=== PATIENT | female | born 1970 | race Caucasian/White ===

== ENCOUNTER → 2017-02-17 | Outpatient (CLI) | payer OTHER ==
[2017-02-17 13:26] LABS: CH 29.9; CHCM 32.5; HCT 51.7 % (34.0-46.0); HDW 2.35; MCH 30.4 pg (25.0-35.0); MCHC 32.9 g/dL (31.0-37.0); MCV 92.2 fL (80.0-100.0); Mean Platelet Volume 8.2; RBC 5.61 m/uL (3.80-5.40); WBC 8.4 k/uL (3.8-10.6)
[2017-02-17 13:31] LABS: ALT 81 U/L (9-52); AST 69 U/L (14-36); Alkaline Phosphatase 106 U/L (38-126); Anion Gap 10 mmol/L; Blood Urea Nitrogen 10 mg/dL (7-17); Calcium 9.4 mg/dL (8.4-10.2); Carbon Dioxide 26 mmol/L (22-30); Chloride 101 mmol/L (98-107); Cholesterol 218 mg/dL (<200); Glucose 231 mg/dL (74-99); HDL Cholesterol 56 mg/dL (40-60); Non-African American GFR(MDRD) >60 (>60 ml/min/1.73 sqM); Potassium 4.1 mmol/L (3.5-5.1); Sodium 137 mmol/L (137-145); Total Protein 6.9 g/dL (6.3-8.2); Triglycerides 294 mg/dL (<150)
[2017-02-18 00:48] LABS: Hemoglobin A1C 9.8 % (4.2-6.1)
== END | disposition home or self-care (01) ==
LOC: LABWHC1 12:50
PROVIDERS: ATTEND Internal Medicine
DX: E78.2 Mixed hyperlipidemia (principal); M19.90 Unspecified osteoarthritis, unspecified site; E11.9 Type 2 diabetes mellitus without complications
CPT/HCPCS: 36415; 80053; 80061; 82043; 83036; 85027

== ENCOUNTER → 2017-03-18 | Outpatient (CLI) | payer OTHER ==
[2017-03-18 11:56] LABS: Hemoglobin A1C 8.8 % (4.2-6.1)
== END | disposition home or self-care (01) ==
LOC: LABWHC1 08:45
PROVIDERS: ATTEND Internal Medicine
DX: E11.9 Type 2 diabetes mellitus without complications (principal)
CPT/HCPCS: 36415; 82947; 83036

== ENCOUNTER → 2017-05-26 | Outpatient (CLI) | payer OTHER ==
[2017-05-26 23:53] LABS: Hemoglobin A1C 6.5 % (4.2-6.1)
== END | disposition home or self-care (01) ==
LOC: LABWHC1 16:09
PROVIDERS: ATTEND Internal Medicine
DX: E11.9 Type 2 diabetes mellitus without complications (principal)
CPT/HCPCS: 36415; 82947; 83036

== ENCOUNTER → 2017-07-31 | Outpatient (CLI) | payer OTHER | END | disposition home or self-care (01) | LOC: RADMRIMAIN 08:37 | PROVIDERS: ATTEND Physician Assistant | DX: Z53.9 Procedure and treatment not carried out, unspecified reason (principal) ==

== ENCOUNTER → 2017-12-26 | Outpatient (CLI) | payer OTHER ==
[2017-12-26 10:42] LABS: Anion Gap 12 mmol/L; Blood Urea Nitrogen 13 mg/dL (7-17); Calcium 9.7 mg/dL (8.4-10.2); Carbon Dioxide 26 mmol/L (22-30); Chloride 100 mmol/L (98-107); Cholesterol 197 mg/dL (<200); Glucose 217 mg/dL (74-99); HDL Cholesterol 56 mg/dL (40-60); LDL Cholesterol,Calculated 90 mg/dL (0-99); Potassium 4.5 mmol/L (3.5-5.1); Sodium 138 mmol/L (137-145); Triglycerides 256 mg/dL (<150)
[2017-12-26 21:18] LABS: Hemoglobin A1C 8.4 % (4.0-6.0)
== END | disposition home or self-care (01) ==
LOC: LABWHC1 10:10
PROVIDERS: ATTEND Internal Medicine
DX: I11.9 Hypertensive heart disease without heart failure (principal); E11.9 Type 2 diabetes mellitus without complications; E78.2 Mixed hyperlipidemia
CPT/HCPCS: 36415; 80048; 80061; 83036

== ENCOUNTER → 2018-07-02 | Outpatient (CLI) | payer OTHER ==
--- NOTE | 2018-07-06 10:05 | MM ---
Reason for exam: screening (asymptomatic). Last mammogram was performed 2 years ago. Physical Findings: A clinical breast exam by your physician is recommended on an annual basis and results should be correlated with mammographic findings. MG Screening Mammo w CAD Bilateral CC and MLO view(s) were taken. Prior study comparison: July 16, 2016, bilateral MG screening mammo w CAD. July 12, 2014, bilateral MG screening mammo w CAD. There are scattered fibroglandular densities. There is no discrete abnormality. No significant changes when compared with prior studies. ASSESSMENT: Negative, BI-RAD 1 RECOMMENDATION: Routine screening mammogram of both breasts in 1 year.
== END | disposition home or self-care (01) ==
LOC: RADMAMWWP 13:14
PROVIDERS: ATTEND Internal Medicine
DX: Z12.31 Encounter for screening mammogram for malignant neoplasm of breast (principal)
CPT/HCPCS: 77067

== ENCOUNTER → 2018-08-04 | Outpatient (CLI) | payer OTHER ==
[2018-08-04 09:54] LABS: HCT 47.4 % (34.0-46.0); HGB 15.5 gm/dL (11.4-16.0); MCH 30.4 pg (25.0-35.0); MCHC 32.7 g/dL (31.0-37.0); MCV 93.1 fL (80.0-100.0); Platelet Count 261 k/uL (150-450); RBC 5.09 m/uL (3.80-5.40); RDW 12.9 % (11.5-15.5); WBC 9.9 k/uL (3.8-10.6)
[2018-08-04 10:14] LABS: ALT 49 U/L (9-52); AST 43 U/L (14-36); Albumin 3.9 g/dL (3.5-5.0); Alkaline Phosphatase 72 U/L (38-126); Anion Gap 10 mmol/L; Blood Urea Nitrogen 11 mg/dL (7-17); Calcium 9.5 mg/dL (8.4-10.2); Carbon Dioxide 28 mmol/L (22-30); Chloride 102 mmol/L (98-107); Cholesterol 175 mg/dL (<200); Glucose 146 mg/dL (74-99); HDL Cholesterol 47 mg/dL (40-60); LDL Cholesterol,Calculated 87 mg/dL (0-99); Potassium 4.7 mmol/L (3.5-5.1); Sodium 140 mmol/L (137-145); Total Bilirubin 0.5 mg/dL (0.2-1.3); Triglycerides 206 mg/dL (<150)
[2018-08-04 10:24] LABS: T4, Free (Free Thyroxine) 1.24 ng/dL (0.78-2.19)
[2018-08-04 19:11] LABS: Hemoglobin A1C 6.1 % (4.0-6.0)
== END ==
LOC: LABWHC1 08:45
PROVIDERS: ATTEND Internal Medicine
DX: Z00.00 Encounter for general adult medical examination without abnormal findings (principal); E11.9 Type 2 diabetes mellitus without complications; I11.9 Hypertensive heart disease without heart failure; E66.1 Drug-induced obesity; K21.0 Gastro-esophageal reflux disease with esophagitis
CPT/HCPCS: 36415; 80053; 80061; 82043; 82570; 83036; 84439; 84443; 85027

== ENCOUNTER 2018-08-11 11:05 | Inpatient (IN) | payer OTHER ==
[2018-08-11] MEDS ORDERED: ACETAMINOPHEN TAB 500 MG TAB PO STA (11:16)
[2018-08-11] MEDS ORDERED: IPRATROPIUM-ALBUTEROL 3 ML NEB INHALATION STA (11:16)
--- NOTE | 2018-08-11 11:18 | ED ---
General Adult HPI - General Chief complaint: Shortness of Breath Stated complaint: SOB Time Seen by Provider: 08/11/18 11:13 Source: patient, RN notes reviewed Mode of arrival: wheelchair Limitations: no limitations - History of Present Illness Initial comments: Patient is a pleasant 47-year-old female presenting to the emergency Department with complaints of difficulty breathing. Onset of symptoms was several days ago. Patient does have cough with occasional yellow sputum. Patient has had subjective fevers. Patient has not been smoking the past couple of days secondary to increased dyspnea. Dyspnea also increases with mild exertion. Patient does have a history of similar symptoms previously associated with COPD. No leg pain or leg swelling. No chest pain. - Related Data Home Medications Medication Instructions Recorded Confirmed FLUoxetine HCL [PROzac] 20 mg PO DAILY 03/08/15 08/11/18 Atorvastatin [Lipitor] 20 mg PO HS 08/11/18 08/11/18 Diclofenac Sodium [Voltaren] 75 mg PO BID 08/11/18 08/11/18 metFORMIN HCL 1,000 mg PO BID 08/11/18 08/11/18 sitaGLIPtin [Januvia] 100 mg PO DAILY 08/11/18 08/11/18 Allergies Allergy/AdvReac Type Severity Reaction Status Date / Time erythromycin base Allergy Severe Rash/Hives/ Verified 08/11/18 12:00 [Erythromycin Base] SOB amoxicillin [Amoxicillin] Allergy Rash/Hives Verified 08/11/18 12:00 bupropion HCl Allergy Swelling Verified 08/11/18 12:00 [From Wellbutrin] cephalexin monohydrate Allergy Rash/Hives, Verified 08/11/18 12:00 [From Keflex] SOME SHORTNESS OF BREATH ONE A DAY MULTIVITAMIN Allergy Itching/HIV Uncoded 08/11/18 11:10 ES Review of Systems ROS Statement: Those systems with pertinent positive or pertinent negative responses have been documented in the HPI. ROS Other: All systems not noted in ROS Statement are negative. Constitutional: Reports: fever, chills Eyes: Denies: eye pain ENT: Reports: congestion. Denies: ear pain Respiratory: Reports: cough, dyspnea Cardiovascular: Denies: chest pain Endocrine: Reports: fatigue Gastrointestinal: Denies: abdominal pain Genitourinary: Denies: dysuria Musculoskeletal: Denies: back pain Skin: Denies: rash Neurological: Denies: weakness Past Medical History Past Medical History: Asthma, COPD, Musculoskeletal Disorder, Osteoarthritis (OA ) Additional Past Medical History / Comment(s): severe Morbid obesity History of Any Multi-Drug Resistant Organisms: None Reported Past Surgical History: Section, Orthopedic Surgery, Tonsillectomy, Tubal Ligation Additional Past Surgical History / Comment(s): tumors removed from neck ( thyroid area),ganglion cyst removed from left footpain, clinic procedures, exp. laparoscopy Past Anesthesia/Blood Transfusion Reactions: Previous Problems w/ Anesthesia Additional Past Anesthesia/Blood Transfusion Reaction / Comment(s): states "could not catch her breath when she awoke" from general anesthesia Past Psychological History: Depression Smoking Status: Current every day smoker Past Alcohol Use History: None Reported Past Drug Use History: None Reported - Past Family History Mother Family Medical History: Cancer, Diabetes Mellitus Brother(s) Family Medical History: Deep Vein Thrombosis (DVT) General Exam Limitations: no limitations General appearance: alert, in no apparent distress Head exam: Present: atraumatic Eye exam: Present: normal appearance Neck exam: Present: normal inspection Respiratory exam: Present: wheezes, decreased breath sounds Cardiovascular Exam: Present: regular rate, normal rhythm GI/Abdominal exam: Present: soft. Absent: tenderness Extremities exam: Present: normal inspection. Absent: pedal edema, calf tenderness Back exam: Present: normal inspection Neurological exam: Present: alert Psychiatric exam: Present: normal affect, normal mood Skin exam: Present: normal color Course Vital Signs 08/11/18 08/11/18 08/11/18 11:08 11:18 11:28 Temperature 100.8 F H Pulse Rate 99 94 96 Respiratory 22 Rate Blood Pressure 136/77 O2 Sat by Pulse 88 L Oximetry 08/11/18 12:57 Temperature Pulse Rate 79 Respiratory 18 Rate Blood Pressure 120/58 O2 Sat by Pulse 92 L Oximetry - Reevaluation(s) Reevaluation #1: 08/11/18 12:40 Fluid bolus provided for ideal body weight of 52.2 kg at 5 foot 3 female. 08/11/18 13:22 Patient meet sepsis criteria diagnosed at 1322. Blood culture and lactic acid have been ordered. IV antibiotics will be ordered. EKG Findings - EKG Comments: EKG Findings:: Normal sinus rhythm 85. IL 126. QRS 112. QT 390. QTC 464. Normal axis. Incomplete right bundle-branch block. No acute ST change. Medical Decision Making - Medical Decision Making Patient reevaluated and is somewhat improved. Heart rate has improved. Lung sounds somewhat improved. Pulse ox remains 92-93% on 2 L. Patient and family updated on results and plan. Case was discussed in detail with Dr. Hayward, who will admit his patient. He does agree with consult with Dr. Willard who patient has previously seen. - Lab Data Result diagrams: 08/11/18 11:48 08/11/18 11:48 Lab Results 08/11/18 08/11/18 08/11/18 Range/Units 11:48 11:48 11:48 WBC 8.5 (3.8-10.6) k/uL RBC 5.15 (3.80-5.40) m/uL Hgb 15.5 (11.4-16.0) gm/dL Hct 47.4 H (34.0-46.0) % MCV 92.1 (80.0-100.0) fL MCH 30.2 (25.0-35.0) pg MCHC 32.8 (31.0-37.0) g/dL RDW 13.0 (11.5-15.5) % Plt Count 230 (150-450) k/uL Neutrophils % 60 % Lymphocytes % 29 % Monocytes % 5 % Eosinophils % 4 % Basophils % 1 % Neutrophils # 5.1 (1.3-7.7) k/uL Lymphocytes # 2.5 (1.0-4.8) k/uL Monocytes # 0.4 (0-1.0) k/uL Eosinophils # 0.3 (0-0.7) k/uL Basophils # 0.1 (0-0.2) k/uL PT (9.0-12.0) sec INR (<1.2) APTT (22.0-30.0) sec Sodium 139 (137-145) mmol/L Potassium 4.5 (3.5-5.1) mmol/L Chloride 104 (98-107) mmol/L Carbon Dioxide 27 (22-30) mmol/L Anion Gap 8 mmol/L BUN 9 (7-17) mg/dL Creatinine 0.48 L (0.52-1.04) mg/dL Est GFR (CKD-EPI)AfAm >90 (>60 ml/min/1.73 sqM) Est GFR (CKD-EPI)NonAf >90 (>60 ml/min/1.73 sqM) Glucose 142 H (74-99) mg/dL Plasma Lactic Acid Tadeo 2.8 H* (0.7-2.0) mmol/L Calcium 9.4 (8.4-10.2) mg/dL Total Bilirubin 0.4 (0.2-1.3) mg/dL AST 50 H (14-36) U/L ALT 53 H (9-52) U/L Alkaline Phosphatase 70 (38-126) U/L Total Protein 7.0 (6.3-8.2) g/dL Albumin 3.9 (3.5-5.0) g/dL 08/11/18 Range/Units 11:48 WBC (3.8-10.6) k/uL RBC (3.80-5.40) m/uL Hgb (11.4-16.0) gm/dL Hct (34.0-46.0) % MCV (80.0-100.0) fL MCH (25.0-35.0) pg MCHC (31.0-37.0) g/dL RDW (11.5-15.5) % Plt Count (150-450) k/uL Neutrophils % % Lymphocytes % % Monocytes % % Eosinophils % % Basophils % % Neutrophils # (1.3-7.7) k/uL Lymphocytes # (1.0-4.8) k/uL Monocytes # (0-1.0) k/uL Eosinophils # (0-0.7) k/uL Basophils # (0-0.2) k/uL PT 9.9 (9.0-12.0) sec INR 1.0 (<1.2) APTT 23.1 (22.0-30.0) sec Sodium (137-145) mmol/L Potassium (3.5-5.1) mmol/L Chloride (98-107) mmol/L Carbon Dioxide (22-30) mmol/L Anion Gap mmol/L BUN (7-17) mg/dL Creatinine (0.52-1.04) mg/dL Est GFR (CKD-EPI)AfAm (>60 ml/min/1.73 sqM) Est GFR (CKD-EPI)NonAf (>60 ml/min/1.73 sqM) Glucose (74-99) mg/dL Plasma Lactic Acid Tadeo (0.7-2.0) mmol/L Calcium (8.4-10.2) mg/dL Total Bilirubin (0.2-1.3) mg/dL AST (14-36) U/L ALT (9-52) U/L Alkaline Phosphatase (38-126) U/L Total Protein (6.3-8.2) g/dL Albumin (3.5-5.0) g/dL - Radiology Data Radiology results: image reviewed (Chest x-ray shows no definite infiltrate. Findings may be indicative of bronchitis or reactive airway disease, cannot exclude some substernal airspace disease versus atelectasis.) Disposition Clinical Impression: Sepsis, Acute exacerbation of chronic obstructive airways disease Disposition: ADMITTED IP TO THIS HOSP Is patient prescribed a controlled substance at d/c from ED?: No Referrals: Lefty Hayward MD [Primary Care Provider] - 1-2 days Decision Time: 13:23
[2018-08-11] MEDS: SODIUM CHLORIDE 0.9% 500 ML IV SCH ×2 (12:02→12:46)
[2018-08-11 12:09] LABS: Basophils # (A) 0.1 k/uL (0-0.2); Basophils % (A) 1 %; Eosinophils # (A) 0.3 k/uL (0-0.7); Eosinophils % (A) 4 %; HCT 47.4 % (34.0-46.0); HGB 15.5 gm/dL (11.4-16.0); Lymphocytes # (A) 2.5 k/uL (1.0-4.8); Lymphocytes % (A) 29 %; MCH 30.2 pg (25.0-35.0); MCHC 32.8 g/dL (31.0-37.0); MCV 92.1 fL (80.0-100.0); Mean Platelet Volume 7.9; Monocytes # (A) 0.4 k/uL (0-1.0); Monocytes % (A) 5 %; Neutrophils # (A) 5.1 k/uL (1.3-7.7); Neutrophils % (A) 60 %; Platelet Count 230 k/uL (150-450); RBC 5.15 m/uL (3.80-5.40); WBC 8.5 k/uL (3.8-10.6)
[2018-08-11 12:22] LABS: Partial Thromboplastin Time 23.1 sec (22.0-30.0); Prothrombin Time 9.9 sec (9.0-12.0)
[2018-08-11 12:25] LABS: ALT 53 U/L (9-52); AST 50 U/L (14-36); Albumin 3.9 g/dL (3.5-5.0); Alkaline Phosphatase 70 U/L (38-126); Anion Gap 8 mmol/L; Blood Urea Nitrogen 9 mg/dL (7-17); Calcium 9.4 mg/dL (8.4-10.2); Carbon Dioxide 27 mmol/L (22-30); Chloride 104 mmol/L (98-107); Glucose 142 mg/dL (74-99); Potassium 4.5 mmol/L (3.5-5.1); Sodium 139 mmol/L (137-145); Total Bilirubin 0.4 mg/dL (0.2-1.3)
[2018-08-11] MEDS ORDERED: SODIUM CHLORIDE 0.9% 1,000 ML IV STA (12:40)
--- NOTE | 2018-08-11 12:57 | XR ---
EXAMINATION TYPE: XR chest 2V DATE OF EXAM: 08/11/2018 COMPARISON: Prior chest 06/11/2016 HISTORY: Cough, COPD and asthma TECHNIQUE: Frontal and lateral views of the chest are obtained. FINDINGS: There is no pleural effusion, or pneumothorax seen. There is bronchial wall thickening pre sent. Some minimal substernal increased density suspected on the lateral view. The cardiac silhouette size is within normal limits. The osseous structures are intact. IMPRESSION: Findings may be indicative of bronchitis, reactive airways disease, difficult to exclude substernal airspace disease versus atelectasis. Follow-up as indicated.
[2018-08-11] MEDS ORDERED: LEVOFLOXACIN 750MG-D5W PMX 750 MG in DEXTROSE/WATER 1 150ML.BAG IVPB STA (13:23)
[2018-08-11] MEDS ORDERED: methylPREDNISolone SOD SUCCI 125 MG/2 ML VIAL IV STA (13:25)
[2018-08-11] MEDS ORDERED: SODIUM CHLORIDE 0.9% 1,000 ML IV SCH (13:30)
[2018-08-11 13:51] LABS: Appearance,Urine Cloudy (Clear); Bacteria,Urine Rare /hpf; Bilirubin,Urine Negative (Negative); Blood,Urine Negative (Negative); Color,Urine Yellow; Glucose,Urine (UA) Negative (Negative); Ketones,Urine Negative (Negative); Leukocyte Esterase,Urine Large (Negative); Mucus,Urine Rare /hpf; Nitrite,Urine Negative (Negative); Protein,Urine Negative (Negative); RBC,Urine 1 /hpf (0-5); Specific Gravity,Urine 1.015 (1.001-1.035); Squamous Epithelial Cell,Urine 7 /hpf (0-4); Urobilinogen,Urine <2.0 mg/dL (<2.0); WBC,Urine 2 /hpf (0-5)
[2018-08-11] MEDS: IPRATROPIUM-ALBUTEROL 3 ML NEB INHALATION SCH ×2 (13:54→19:12)
[2018-08-11 16:47] LABS: Glucose,Whole Blood 228 mg/dL (75-99)
[2018-08-11] MEDS: INSULIN ASPART 100 UNIT/ML 1 ML 10 ML VIAL SQ SCH ×2 (17:35→21:06)
[2018-08-11] MEDS: methylPREDNISolone SOD SUCCI 125 MG/2 ML VIAL IV SCH ×2 (17:35→23:13)
[2018-08-11] MEDS: SODIUM CHLORIDE 0.9% 1,000 ML IV SCH (17:35)
--- NOTE | 2018-08-11 17:50 | P.CNPUL ---
History of Present Illness Consult date: 08/11/18 Reason for consult: dyspnea, cough, COPD, hypoxemia, obstructive sleep apnea Chief complaint: Shortness of breath cough and thick purulent sputum production started 3-4 History of present illness: 47-year-old morbidly obese female with prior medical history of severe lung disease later to chronic persistent asthma and COPD patient has been extensively smoker she smokes about half to 1 pack per day has been smoking actively about 2 or 3-4 day prior to coming to the hospital, patient also has history of sleep disorder breathing and sleep apnea has been prescribed CPAP machine but couldn't take care of it stop using more than a year ago, patient evaluated into the emergency department has been admitted into the hospital Review of Systems All systems: negative Past Medical History Past Medical History: Asthma, COPD, Diabetes Mellitus, Fibromyalgia, Hyperlipidemia, Osteoarthritis (OA) Additional Past Medical History / Comment(s): Morbid obesity, Degenerative Disc Disease History of Any Multi-Drug Resistant Organisms: None Reported Past Surgical History: Section, Orthopedic Surgery, Tonsillectomy, Tubal Ligation Additional Past Surgical History / Comment(s): tumor biopsy from neck (thyroid area), ganglion cyst removed from left footpain, exp. laparoscopy Past Anesthesia/Blood Transfusion Reactions: Previous Problems w/ Anesthesia Additional Past Anesthesia/Blood Transfusion Reaction / Comment(s): States "could not catch her breath when she awoke" from general anesthesia Past Psychological History: Anxiety, Bipolar, Depression Additional Psychological History / Comment(s): Borderline Personality Disorder Smoking Status: Current every day smoker Past Alcohol Use History: None Reported Past Drug Use History: None Reported - Past Family History Mother Family Medical History: Cancer Additional Family Medical History / Comment(s): Lung cancer Brother(s) Family Medical History: Deep Vein Thrombosis (DVT) Medications and Allergies Home Medications Medication Instructions Recorded Confirmed Type FLUoxetine HCL [PROzac] 20 mg PO DAILY 03/08/15 08/11/18 History Atorvastatin [Lipitor] 20 mg PO HS 08/11/18 08/11/18 History Diclofenac Sodium [Voltaren] 75 mg PO BID 08/11/18 08/11/18 History metFORMIN HCL 1,000 mg PO BID 08/11/18 08/11/18 History sitaGLIPtin [Januvia] 100 mg PO DAILY 08/11/18 08/11/18 History Allergies Allergy/AdvReac Type Severity Reaction Status Date / Time erythromycin base Allergy Severe Rash/Hives/ Verified 08/11/18 12:00 [Erythromycin Base] SOB amoxicillin [Amoxicillin] Allergy Rash/Hives Verified 08/11/18 12:00 bupropion HCl Allergy Swelling Verified 08/11/18 12:00 [From Wellbutrin] cephalexin monohydrate Allergy Rash/Hives, Verified 08/11/18 12:00 [From Keflex] SOME SHORTNESS OF BREATH ONE A DAY MULTIVITAMIN Allergy Itching/HIV Uncoded 08/11/18 11:10 ES Physical Exam Vitals: Vital Signs Temp Pulse Pulse Resp BP BP Pulse Ox 08/11/18 15:40 97.7 F 82 22 129/80 93 L 08/11/18 15:14 98.6 F 76 18 138/63 93 L 08/11/18 14:09 78 08/11/18 13:54 79 08/11/18 12:57 79 18 120/58 92 L 08/11/18 11:28 96 08/11/18 11:18 94 08/11/18 11:08 100.8 F H 99 22 136/77 88 L Intake and Output 08/11/18 08/11/18 08/11/18 06:59 14:59 22:59 Other: Voiding Method Bedside Commode Weight 158.757 kg 158 kg - Constitutional General appearance: disheveled, mild distress, morbidly obese - EENT Eyes: EOMI, PERRLA, normal appearance ENT: hard of hearing, hearing grossly normal Ears: bilateral: normal - Neck Neck: normal ROM Carotids: bilateral: upstroke normal Thyroid: bilateral: normal size - Respiratory Respiratory: bilateral: diminished, rhonchi, wheezing, prolonged expiration, negative: dullness, rales - Cardiovascular Heart sounds: normal: S1, S2 - Gastrointestinal General gastrointestinal: decreased bowel sounds, distended, soft - Integumentary Integumentary: normal, normal turgor - Neurologic Neurologic: CNII-XII intact - Musculoskeletal Musculoskeletal: gait normal, generalized weakness, strength equal bilaterally - Psychiatric Psychiatric: A&O x's 3, appropriate affect, intact judgment & insight Results - Laboratory Findings CBC and BMP: 08/11/18 11:48 08/11/18 11:48 PT/INR, D-dimer PT 9.9 sec (9.0-12.0) 08/11/18 11:48 INR 1.0 (<1.2) 08/11/18 11:48 Abnormal lab findings: Abnormal Labs 08/11/18 08/11/18 08/11/18 11:48 11:48 11:48 Hct 47.4 H Creatinine 0.48 L Glucose 142 H POC Glucose (mg/dL) Plasma Lactic Acid Tadeo 2.8 H* AST 50 H ALT 53 H Urine Appearance Ur Leukocyte Esterase Ur Squamous Epith Cells Urine Bacteria Urine Mucus 08/11/18 08/11/18 08/11/18 13:35 15:52 16:45 Hct Creatinine Glucose POC Glucose (mg/dL) 228 H Plasma Lactic Acid Tadeo 2.4 H* AST ALT Urine Appearance Cloudy H Ur Leukocyte Esterase Large H Ur Squamous Epith Cells 7 H Urine Bacteria Rare H Urine Mucus Rare H - Diagnostic Findings Chest x-ray: report reviewed, image reviewed (Bilateral midlung field infiltrate noted likely suggestive of bilateral pneumonia) Assessment and Plan Assessment: Acute hypoxic respiratory failure related to bilateral pneumonia Bilateral pneumonia acute community-acquired Severe degree of chronic persistent asthma Disorder breathing and sleep apnea Severe morbid obesity Plan: Broad-spectrum antibiotics Being treatments V steroids Follow-up on sputum studies and culture Has been consult about smoking cessation She has been educated about sleep disorder breathing and sleep apnea impact on cardiovascular cerebrovascular psychosocial and general health Hyperglycemia appears to be related to high-dose steroids continue sliding scale insulin Time with Patient: Greater than 30
[2018-08-11] MEDS: metFORMIN 500 MG TAB PO SCH (18:15)
[2018-08-11] MEDS: LORazepam 0.5 MG TAB PO PRN (18:59)
[2018-08-11 20:50] LABS: Glucose,Whole Blood 210 mg/dL (75-99)
[2018-08-11] MEDS: ATORVASTATIN 20 MG TAB PO SCH (21:05)
[2018-08-11] MEDS: ETODOLAC 400 MG TAB PO SCH (21:05)
--- NOTE | 2018-08-11 21:20 | HP ---
HISTORY AND PHYSICAL DATE OF ADMISSION: 08/11/2018 The patient was seen in the emergency room. Room has not been assigned yet. CHIEF COMPLAINT: Severe cough, wheezing, difficulty in breathing and shortness of breath. This patient is a 47-year-old female who was brought to the emergency room with severe cough, wheezing, difficulty in breathing and shortness of breath of several days' duration. The patient was progressively getting worse and she was not able to sleep because of the cough and shortness of breath, and also the difficulty in breathing is markedly increased with exertion. She also has a severe cough productive of yellowish sputum. In the ER, her CBC showed a WBC count of 8.5, hemoglobin 15.5, platelet count 230,000. Sodium 139, potassium 4.5, creatinine 0.48, BUN 9, glucose 142. Lactic acid 2.8. Chest x-ray showed evidence of bronchitis and COPD but no pneumonia. EKG did not show any acute changes. Her pulse ox was 88% and with oxygen it came up to 92%. Patient was admitted to hospital for further evaluation and treatment. PAST MEDICAL HISTORY: 1. Chronic obstructive pulmonary disease and she has been seeing Dr. Willard, learning operations specialist. 2. Diabetes mellitus. 3. Mental depression. 4. Fibromyalgia. 5. Degenerative arthritis in multiple joints. 6. Hyperlipidemia. CURRENT MEDICATIONS: 1. Januvia 100 mg p.o. daily. 2. Metformin 1000 mg p.o. b.i.d. 3. Prozac 20 mg p.o. daily. 4. Voltaren 75 mg p.o. b.i.d. 5. Lipitor 20 mg p.o. daily. ALLERGIES: 1. ERYTHROMYCIN. 2. AMOXICILLIN. 3. WELLBUTRIN. 4. KEFLEX. 5. MULTIVITAMINS. SOCIAL HISTORY: She smokes, but she is trying to cut down. FAMILY HISTORY: Positive for diabetes and cancer. REVIEW OF SYSTEMS: Patient denies any headache. Appetite has been poor lately. She has no chest pain, but she is extremely short of breath and has severe cough and wheezing. She has no abdominal pain. She has no polyuria or dysuria. She has no neurological symptoms. PHYSICAL EXAMINATION: Physical examination reveals a 47-year-old female who is morbidly obese, alert and oriented, but she is still very short of breath. In the ER she is using nasal oxygen. Temperature 100.8, pulse 98 per minute, regular, blood pressure 136/78. Pulse ox without oxygen was 88 and it came up to 92 to 94 with oxygen. Examination of the ENT is negative. Neck is supple. There is no jugular venous distention. There is no goiter. There is no carotid bruit. Heart is in sinus rhythm. Lungs reveal diminished breath sounds over both bases with bilateral scattered rhonchi and severe expiratory wheeze. Abdomen is soft and nontender. There is no mass palpable. Examination of the lower extremities reveals no pitting edema. Neurologic examination does not reveal any localizing signs. IMPRESSION: 1. Chronic obstructive pulmonary disease with acute exacerbation. 2. Acute tracheobronchitis. 3. Sepsis with elevated temperature and elevated lactic acid. 4. Diabetes mellitus. 5. Fibromyalgia. 6. Osteoarthritis, multiple joints. 7. Morbid obesity. 8. Mental depression. PLAN: Patient will be admitted to hospital, started on IV antibiotics, updraft treatments and IV Solu-Medrol. She will be placed back on her previous medications. Diabetes will be controlled with NovoLog sliding scale. We will also consult Dr. Willard, her learning operations specialist. Prognosis is guarded. The diagnosis, prognosis and therapeutic plans were discussed in detail with the patient. MMODL / IJN: [id number] /
[2018-08-11] MEDS: ACETAMINOPHEN TAB 325 MG TAB PO PRN (23:14)
[2018-08-12] MEDS: IPRATROPIUM-ALBUTEROL 3 ML NEB INHALATION PRN (04:54)
[2018-08-12] MEDS: methylPREDNISolone SOD SUCCI 125 MG/2 ML VIAL IV SCH ×3 (06:33→18:28)
[2018-08-12 07:10] LABS: Glucose,Whole Blood 215 mg/dL (75-99)
[2018-08-12] MEDS: IPRATROPIUM-ALBUTEROL 3 ML NEB INHALATION SCH ×4 (07:30→20:22)
[2018-08-12] MEDS: SODIUM CHLORIDE 0.9% 1,000 ML IV SCH ×2 (07:49→18:29)
[2018-08-12] MEDS: INSULIN ASPART 100 UNIT/ML 1 ML 10 ML VIAL SQ SCH ×3 (07:51→17:27)
[2018-08-12] MEDS: metFORMIN 500 MG TAB PO SCH ×2 (07:52→17:27)
[2018-08-12] MEDS: ETODOLAC 400 MG TAB PO SCH ×2 (07:52→22:01)
[2018-08-12] MEDS: FLUoxetine HCL 20 MG CAP PO SCH (07:53)
[2018-08-12] MEDS: LORazepam 0.5 MG TAB PO PRN (07:54)
[2018-08-12 08:19] LABS: ABG Base Excess 3.5 mmol/L; ABG HCO3 28 mmol/L (21-25); ABG Oxygen Saturation 87.4 % (94-97); ABG PCO2 41 mmHg (35-45); ABG PH 7.44 (7.35-7.45); ABG TCO2 29 mmol/L (19-24)
[2018-08-12 08:51] LABS: Glucose,Whole Blood 227 mg/dL (75-99)
[2018-08-12] MEDS ORDERED: LINAGLIPTIN 5 MG TABLET PO SCH (09:00)
[2018-08-12 09:24] LABS: Appearance,Urine Clear (Clear); Bilirubin,Urine 1+ (Negative); Blood,Urine Negative (Negative); Color,Urine Yellow; Glucose,Urine (UA) Trace (Negative); Ketones,Urine 1+ (Negative); Leukocyte Esterase,Urine Negative (Negative); Nitrite,Urine Negative (Negative); PH, Urine 5.5 (5.0-8.0); Protein,Urine Negative (Negative); Specific Gravity,Urine 1.011 (1.001-1.035); Urobilinogen,Urine <2.0 mg/dL (<2.0)
--- NOTE | 2018-08-12 09:41 | XR ---
EXAMINATION TYPE: XR chest 1V portable DATE OF EXAM: 08/12/2018 COMPARISON: Prior chest x-ray 08/11/2018 HISTORY: Shortness of breath TECHNIQUE: Single frontal view of the chest is obtained. FINDINGS: Exam is somewhat limited by patient body habitus. Patient is rotated. Heart size is stable . Pulmonary vascularity and hattie not significantly changed. No evident pneumothorax. Difficult to exc lude basilar increased density. IMPRESSION: Exam is limited. Consider PA and lateral chest x-ray for better aeration.
[2018-08-12 09:46] LABS: ABG PO2 47 mmHg (83-108)
[2018-08-12 09:50] LABS: Basophils % (A) 0 %; Eosinophils % (A) 0 %; HCT 46.4 % (34.0-46.0); HGB 14.5 gm/dL (11.4-16.0); Lymphocytes # (A) 1.5 k/uL (1.0-4.8); Lymphocytes % (A) 12 %; MCHC 31.3 g/dL (31.0-37.0); MCV 95.8 fL (80.0-100.0); Mean Platelet Volume 8.1; Monocytes # (A) 0.3 k/uL (0-1.0); Monocytes % (A) 2 %; Neutrophils # (A) 11.1 k/uL (1.3-7.7); Neutrophils % (A) 85 %; Platelet Count 217 k/uL (150-450); RBC 4.85 m/uL (3.80-5.40); RDW 12.9 % (11.5-15.5)
[2018-08-12 09:57] LABS: ALT 50 U/L (9-52); AST 31 U/L (14-36); Albumin 3.8 g/dL (3.5-5.0); Alkaline Phosphatase 72 U/L (38-126); Anion Gap 9 mmol/L; Blood Urea Nitrogen 11 mg/dL (7-17); Calcium 9.4 mg/dL (8.4-10.2); Carbon Dioxide 27 mmol/L (22-30); Chloride 103 mmol/L (98-107); Glucose 238 mg/dL (74-99); Potassium 4.3 mmol/L (3.5-5.1); Sodium 139 mmol/L (137-145); Total Bilirubin 0.4 mg/dL (0.2-1.3); Total Protein 6.8 g/dL (6.3-8.2)
--- NOTE | 2018-08-12 10:37 | P.PN ---
Subjective Progress Note Date: 08/12/18 (Critical care time 35 minutes) Principal diagnosis: Acute COPD exacerbation, bilateral pneumonia, acute on chronic hypoxic respiratory failure, severe degree of sleep disorder breathing and sleep apnea, component of obesity hypoventilation, uncontrolled diabetes and hyperglycemia, altered mental status related to significant hypoxia related to pneumonia and COPD exacerbation 08/12/2018, patient seen eval examined in the ICU moved there from the floor due to altered mental status arterial blood gas was seen no significant hypercapnia was noted however significant hypoxia was there patient did receive some Ativan as well patient was more short of breath with low oxygenation currently patient is on BiPAP of 08/14 with 65% oxygen with BiPAP therapy mental status has improved labs reviewed medications reviewed as well, critical care time spent 35 minutes Objective - Vital Signs Vital signs: Vital Signs Temp 96.7 F L 08/12/18 06:17 Pulse 92 08/12/18 07:49 Resp 25 H 08/12/18 08:00 BP 139/77 08/12/18 06:17 Pulse Ox 91 L 08/12/18 06:17 Intake & Output 08/11/18 08/12/18 08/12/18 18:59 06:59 18:59 Weight 158 kg Other: Voiding Method Bedside Commode Bedside Commode Bedside Commode # Voids 3 - Exam - Constitutional General appearance: disheveled, mild distress, morbidly obese, more awake now compared to earlier this morning - EENT Eyes: EOMI, PERRLA, normal appearance ENT: hard of hearing, hearing grossly normal Ears: bilateral: normal - Neck Neck: normal ROM Carotids: bilateral: upstroke normal Thyroid: bilateral: normal size - Respiratory Respiratory: bilateral: diminished, rhonchi, wheezing, prolonged expiration, negative: dullness, rales - Cardiovascular Heart sounds: normal: S1, S2 - Gastrointestinal General gastrointestinal: decreased bowel sounds, distended, soft - Integumentary Integumentary: normal, normal turgor - Neurologic Neurologic: CNII-XII intact - Musculoskeletal Musculoskeletal: gait normal, generalized weakness, strength equal bilaterally - Psychiatric Psychiatric: A&O x's 3, appropriate affect, intact judgment & insight - Labs CBC & Chem 7: 08/12/18 09:06 08/12/18 09:06 Labs: Abnormal Lab Results - Last 24 Hours (Table) 08/11/18 08/11/18 08/11/18 Range/Units 11:48 11:48 11:48 WBC (3.8-10.6) k/uL Hct 47.4 H (34.0-46.0) % Neutrophils # (1.3-7.7) k/uL ABG pO2 (83-108) mmHg ABG HCO3 (21-25) mmol/L ABG Total CO2 (19-24) mmol/L ABG O2 Saturation (94-97) % Creatinine 0.48 L (0.52-1.04) mg/dL Glucose 142 H (74-99) mg/dL POC Glucose (mg/dL) (75-99) mg/dL Plasma Lactic Acid Tadeo 2.8 H* (0.7-2.0) mmol/L AST 50 H (14-36) U/L ALT 53 H (9-52) U/L Urine Appearance (Clear) Urine Glucose (UA) (Negative) Urine Ketones (Negative) Urine Bilirubin (Negative) Ur Leukocyte Esterase (Negative) Ur Squamous Epith Cells (0-4) /hpf Urine Bacteria (None) /hpf Urine Mucus (None) /hpf 08/11/18 08/11/18 08/11/18 Range/Units 13:35 15:52 16:45 WBC (3.8-10.6) k/uL Hct (34.0-46.0) % Neutrophils # (1.3-7.7) k/uL ABG pO2 (83-108) mmHg ABG HCO3 (21-25) mmol/L ABG Total CO2 (19-24) mmol/L ABG O2 Saturation (94-97) % Creatinine (0.52-1.04) mg/dL Glucose (74-99) mg/dL POC Glucose (mg/dL) 228 H (75-99) mg/dL Plasma Lactic Acid Tadeo 2.4 H* (0.7-2.0) mmol/L AST (14-36) U/L ALT (9-52) U/L Urine Appearance Cloudy H (Clear) Urine Glucose (UA) (Negative) Urine Ketones (Negative) Urine Bilirubin (Negative) Ur Leukocyte Esterase Large H (Negative) Ur Squamous Epith Cells 7 H (0-4) /hpf Urine Bacteria Rare H (None) /hpf Urine Mucus Rare H (None) /hpf 10/12/2808/12/18 08/12/18 Range/Units 20:49 07:00 08:15 WBC (3.8-10.6) k/uL Hct (34.0-46.0) % Neutrophils # (1.3-7.7) k/uL ABG pO2 47 L* (83-108) mmHg ABG HCO3 28 H (21-25) mmol/L ABG Total CO2 29 H (19-24) mmol/L ABG O2 Saturation 87.4 L (94-97) % Creatinine (0.52-1.04) mg/dL Glucose (74-99) mg/dL POC Glucose (mg/dL) 210 H 215 H (75-99) mg/dL Plasma Lactic Acid Tadeo (0.7-2.0) mmol/L AST (14-36) U/L ALT (9-52) U/L Urine Appearance (Clear) Urine Glucose (UA) (Negative) Urine Ketones (Negative) Urine Bilirubin (Negative) Ur Leukocyte Esterase (Negative) Ur Squamous Epith Cells (0-4) /hpf Urine Bacteria (None) /hpf Urine Mucus (None) /hpf 08/12/18 08/12/18 08/12/18 Range/Units 08:49 09:04 09:06 WBC 13.0 H (3.8-10.6) k/uL Hct 46.4 H (34.0-46.0) % Neutrophils # 11.1 H (1.3-7.7) k/uL ABG pO2 (83-108) mmHg ABG HCO3 (21-25) mmol/L ABG Total CO2 (19-24) mmol/L ABG O2 Saturation (94-97) % Creatinine (0.52-1.04) mg/dL Glucose (74-99) mg/dL POC Glucose (mg/dL) 227 H (75-99) mg/dL Plasma Lactic Acid Tadeo (0.7-2.0) mmol/L AST (14-36) U/L ALT (9-52) U/L Urine Appearance (Clear) Urine Glucose (UA) Trace H (Negative) Urine Ketones 1+ H (Negative) Urine Bilirubin 1+ H (Negative) Ur Leukocyte Esterase (Negative) Ur Squamous Epith Cells (0-4) /hpf Urine Bacteria (None) /hpf Urine Mucus (None) /hpf 08/12/18 08/12/18 Range/Units 09:06 09:06 WBC (3.8-10.6) k/uL Hct (34.0-46.0) % Neutrophils # (1.3-7.7) k/uL ABG pO2 (83-108) mmHg ABG HCO3 (21-25) mmol/L ABG Total CO2 (19-24) mmol/L ABG O2 Saturation (94-97) % Creatinine 0.46 L (0.52-1.04) mg/dL Glucose 238 H (74-99) mg/dL POC Glucose (mg/dL) (75-99) mg/dL Plasma Lactic Acid Tadeo 2.2 H* (0.7-2.0) mmol/L AST (14-36) U/L ALT (9-52) U/L Urine Appearance (Clear) Urine Glucose (UA) (Negative) Urine Ketones (Negative) Urine Bilirubin (Negative) Ur Leukocyte Esterase (Negative) Ur Squamous Epith Cells (0-4) /hpf Urine Bacteria (None) /hpf Urine Mucus (None) /hpf Microbiology - Last 24 Hours (Table) 08/11/18 13:35 Urine Culture - Preliminary Urine,Clean Catch Assessment and Plan Assessment: Acute hypoxic respiratory failure related to bilateral pneumonia Altered mental status related to multifactorial including pneumonia hypoxia and severe COPD and component of hypoventilation syndrome Bilateral pneumonia acute community-acquired Severe degree of chronic persistent asthma Disorder breathing and sleep apnea Severe morbid obesity Plan: BiPAP support as needed We'll keep in ICU today Repeat labs and x-ray tomorrow Avoid benzodiazepine and narcotics can use Xanax as needed Broad-spectrum antibiotics Being treatments V steroids Follow-up on sputum studies and culture Has been consult about smoking cessation She has been educated about sleep disorder breathing and sleep apnea impact on cardiovascular cerebrovascular psychosocial and general health Hyperglycemia appears to be related to high-dose steroids continue sliding scale insulin
[2018-08-12 11:58] LABS: Glucose,Whole Blood 183 mg/dL (75-99)
--- NOTE | 2018-08-12 12:54 | PN ---
PROGRESS NOTE DATE OF SERVICE: 08/12/2018 This is a 47-year-old female who is known to have longstanding history of chronic obstructive pulmonary disease. She also has obstructive sleep apnea and the patient also has morbid obesity, diabetes mellitus and fibromyalgia. The patient was brought to the emergency room with complaints of severe cough with difficulty in breathing and shortness of breath at rest and also increasing shortness of breath on exertion. In the ER, her chest x-ray did not show pneumonia, but there was evidence of acute bronchitis and the patient was admitted to the hospital for further evaluation and treatment. In the ER, she had hypoxia with pulse ox of 88, and she was started on oxygen. At the time of admission, patient was started on IV antibiotics and she was receiving Levaquin and updraft treatments, IV Solu-Medrol, and her diabetes was controlled with NovoLog sliding scale. The patient continued to have severe wheezing and difficulty in breathing and apparently this morning patient went into respiratory distress and she developed acute on chronic hypoxic respiratory failure and she was transferred to ICU by Dr. Willard who is her assessment consultant. She is on BiPAP and her mental status and respiratory distress are improving. Her vital signs are otherwise stable. The patient is alert and oriented. Heart is in sinus rhythm. Lungs revealed diminished breath sounds at both bases with bilateral scattered rhonchi and expiratory wheeze. Abdomen is soft and nontender. There is no mass palpable. Examination of the lower extremities reveal no pitting edema. Neurologic examination does not reveal localizing signs. IMPRESSION: The patient's respiratory status and mental status is improving and we will continue current treatments and Dr. Willard is following the patient in the ICU and as soon as her condition stabilizes, she will be transferred out of ICU. Prognosis is guarded. The diagnosis, prognosis and therapeutic plans were discussed in detail with the patient today. MMODL / IJN: [id number] /
[2018-08-12] MEDS: ALPRAZolam 0.25 MG TAB PO PRN ×2 (14:50→20:44)
[2018-08-12 15:50] LABS: Glucose,Whole Blood 243 mg/dL (75-99)
[2018-08-12 17:09] LABS: Glucose,Whole Blood 232 mg/dL (75-99)
[2018-08-12] MEDS: LEVOFLOXACIN 750MG-D5W PMX 750 MG in DEXTROSE/WATER 1 150ML.BAG IVPB SCH (17:52)
[2018-08-12] MEDS: INSULIN REGULAR 100 UNIT in SODIUM CHLORIDE 0.9% 100 ML IV SCH (19:21)
[2018-08-12 19:22] LABS: Glucose,Whole Blood 235 mg/dL (75-99)
[2018-08-12 20:03] LABS: Glucose,Whole Blood 232 mg/dL (75-99)
[2018-08-12] MEDS: ATORVASTATIN 20 MG TAB PO SCH (20:44)
[2018-08-12 21:03] LABS: Glucose,Whole Blood 178 mg/dL (75-99)
[2018-08-12 21:58] LABS: Glucose,Whole Blood 145 mg/dL (75-99)
[2018-08-12 22:56] LABS: Glucose,Whole Blood 131 mg/dL (75-99)
[2018-08-13 00:04] LABS: Glucose,Whole Blood 159 mg/dL (75-99)
[2018-08-13] MEDS: methylPREDNISolone SOD SUCCI 125 MG/2 ML VIAL IV SCH ×5 (00:50→23:13)
[2018-08-13 01:06] LABS: Glucose,Whole Blood 152 mg/dL (75-99)
[2018-08-13 02:10] LABS: Glucose,Whole Blood 162 mg/dL (75-99)
[2018-08-13 03:09] LABS: Glucose,Whole Blood 147 mg/dL (75-99)
[2018-08-13 04:10] LABS: Glucose,Whole Blood 178 mg/dL (75-99)
[2018-08-13 05:11] LABS: Glucose,Whole Blood 185 mg/dL (75-99)
[2018-08-13 05:18] LABS: Basophils % (A) 0 %; Eosinophils % (A) 0 %; HCT 44.5 % (34.0-46.0); HGB 14.2 gm/dL (11.4-16.0); Lymphocytes % (A) 11 %; MCH 29.9 pg (25.0-35.0); MCHC 31.9 g/dL (31.0-37.0); MCV 93.7 fL (80.0-100.0); Mean Platelet Volume 8.1; Monocytes # (A) 0.5 k/uL (0-1.0); Monocytes % (A) 3 %; Neutrophils # (A) 15.9 k/uL (1.3-7.7); Neutrophils % (A) 86 %; Platelet Count 236 k/uL (150-450); RBC 4.75 m/uL (3.80-5.40); RDW 12.9 % (11.5-15.5); WBC 18.5 k/uL (3.8-10.6)
[2018-08-13 05:49] LABS: ALT 44 U/L (9-52); AST 23 U/L (14-36); Albumin 3.7 g/dL (3.5-5.0); Alkaline Phosphatase 58 U/L (38-126); Anion Gap 7 mmol/L; Blood Urea Nitrogen 16 mg/dL (7-17); Calcium 9.1 mg/dL (8.4-10.2); Carbon Dioxide 27 mmol/L (22-30); Chloride 105 mmol/L (98-107); Glucose 167 mg/dL (74-99); Magnesium 2.1 mg/dL (1.6-2.3); Phosphorus 3.2 mg/dL (2.5-4.5); Potassium 4.5 mmol/L (3.5-5.1); Sodium 139 mmol/L (137-145); Total Bilirubin 0.4 mg/dL (0.2-1.3); Total Protein 6.5 g/dL (6.3-8.2)
[2018-08-13 06:19] LABS: Glucose,Whole Blood 158 mg/dL (75-99)
[2018-08-13 07:02] LABS: Glucose,Whole Blood 161 mg/dL (75-99)
[2018-08-13 07:48] LABS: Glucose,Whole Blood 182 mg/dL (75-99)
[2018-08-13] MEDS: ETODOLAC 400 MG TAB PO SCH ×2 (08:09→20:39)
[2018-08-13] MEDS: FLUoxetine HCL 20 MG CAP PO SCH (08:10)
[2018-08-13] MEDS: IPRATROPIUM-ALBUTEROL 3 ML NEB INHALATION SCH ×4 (08:23→19:36)
--- NOTE | 2018-08-13 08:40 | XR ---
EXAMINATION TYPE: XR chest 1V portable DATE OF EXAM: 08/13/2018 COMPARISON: 08/12/2018 HISTORY: Shortness of breath TECHNIQUE: Single frontal view of the chest is obtained. FINDINGS: There is improved aeration at the lung bases. No obvious pneumothorax. Heart size stable. Interstitium is unchanged. Arthropathy of the shoulders. IMPRESSION: 1. Improved aeration involving both lower lungs.
[2018-08-13 08:59] LABS: Glucose,Whole Blood 286 mg/dL (75-99)
[2018-08-13 10:18] LABS: Glucose,Whole Blood 225 mg/dL (75-99)
[2018-08-13 10:57] LABS: Glucose,Whole Blood 169 mg/dL (75-99)
[2018-08-13 11:53] LABS: Glucose,Whole Blood 187 mg/dL (75-99)
[2018-08-13 13:12] LABS: Glucose,Whole Blood 232 mg/dL (75-99)
[2018-08-13] MEDS: ALPRAZolam 0.25 MG TAB PO PRN ×2 (13:16→22:40)
[2018-08-13 14:27] LABS: Glucose,Whole Blood 241 mg/dL (75-99)
[2018-08-13] MEDS: INSULIN REGULAR 100 UNIT in SODIUM CHLORIDE 0.9% 100 ML IV SCH (14:30)
--- NOTE | 2018-08-13 15:08 | P.PN ---
Subjective Progress Note Date: 08/13/18 (Critical care time 35 minutes) Principal diagnosis: Acute COPD exacerbation, bilateral pneumonia, acute on chronic hypoxic respiratory failure, severe degree of sleep disorder breathing and sleep apnea, component of obesity hypoventilation, uncontrolled diabetes and hyperglycemia, altered mental status related to significant hypoxia related to pneumonia and COPD exacerbation, severe COPD, severe degree of morbid obesity, uncontrolled diabetes and hyperglycemia Objective - Vital Signs Vital signs: Vital Signs Temp 98.0 F 08/13/18 09:00 Pulse 82 08/13/18 12:26 Resp 20 08/13/18 10:00 BP 134/67 08/13/18 10:00 Pulse Ox 92 L 08/13/18 10:00 Intake & Output 08/12/18 08/13/18 08/13/18 18:59 06:59 18:59 Intake Total 675 1011.462 500.114 Output Total 825 925 400 Balance -150 86.462 100.114 Weight 158.4 kg Intake: IV 675 975 450 Sodium Chloride 0.9% 1, 675 975 450 000 ml @ 75 mls/hr IV . [id number] LISA Rx#:[id number] Intake, IV Titration 36.462 50.114 Amount Insulin Regular 100 unit 36.462 50.114 In Sodium Chloride 0.9% 100 ml @ Per Protocol IV .Q0M LISA Rx#:[id number] Output: Urine 825 925 400 Other: Voiding Method Indwelling Catheter Indwelling Catheter Indwelling Catheter - Exam - Constitutional General appearance: disheveled, mild distress, morbidly obese, more awake now compared to earlier this morning - EENT Eyes: EOMI, PERRLA, normal appearance ENT: hard of hearing, hearing grossly normal Ears: bilateral: normal - Neck Neck: normal ROM Carotids: bilateral: upstroke normal Thyroid: bilateral: normal size - Respiratory Respiratory: bilateral: diminished, rhonchi, wheezing, prolonged expiration, negative: dullness, rales - Cardiovascular Heart sounds: normal: S1, S2 - Gastrointestinal General gastrointestinal: decreased bowel sounds, distended, soft - Integumentary Integumentary: normal, normal turgor - Neurologic Neurologic: CNII-XII intact - Musculoskeletal Musculoskeletal: gait normal, generalized weakness, strength equal bilaterally - Psychiatric Psychiatric: A&O x's 3, appropriate affect, intact judgment & insight - Labs CBC & Chem 7: 08/13/18 04:31 08/13/18 04:31 Labs: Abnormal Lab Results - Last 24 Hours (Table) 08/12/18 08/12/18 08/12/18 Range/Units 15:44 17:08 19:21 WBC (3.8-10.6) k/uL Neutrophils # (1.3-7.7) k/uL Creatinine (0.52-1.04) mg/dL Glucose (74-99) mg/dL POC Glucose (mg/dL) 243 H 232 H 235 H (75-99) mg/dL 08/12/18 08/12/18 08/12/18 Range/Units 20:01 21:02 21:57 WBC (3.8-10.6) k/uL Neutrophils # (1.3-7.7) k/uL Creatinine (0.52-1.04) mg/dL Glucose (74-99) mg/dL POC Glucose (mg/dL) 232 H 178 H 145 H (75-99) mg/dL 08/12/18 08/13/18 08/13/18 Range/Units 22:54 00:02 01:04 WBC (3.8-10.6) k/uL Neutrophils # (1.3-7.7) k/uL Creatinine (0.52-1.04) mg/dL Glucose (74-99) mg/dL POC Glucose (mg/dL) 131 H 159 H 152 H (75-99) mg/dL 08/13/18 08/13/18 08/13/18 Range/Units 02:08 03:07 04:08 WBC (3.8-10.6) k/uL Neutrophils # (1.3-7.7) k/uL Creatinine (0.52-1.04) mg/dL Glucose (74-99) mg/dL POC Glucose (mg/dL) 162 H 147 H 178 H (75-99) mg/dL 08/13/18 08/13/18 08/13/18 Range/Units 04:31 04:31 05:10 WBC 18.5 H (3.8-10.6) k/uL Neutrophils # 15.9 H (1.3-7.7) k/uL Creatinine 0.42 L (0.52-1.04) mg/dL Glucose 167 H (74-99) mg/dL POC Glucose (mg/dL) 185 H (75-99) mg/dL 08/13/18 08/13/18 08/13/18 Range/Units 06:18 07:01 07:47 WBC (3.8-10.6) k/uL Neutrophils # (1.3-7.7) k/uL Creatinine (0.52-1.04) mg/dL Glucose (74-99) mg/dL POC Glucose (mg/dL) 158 H 161 H 182 H (75-99) mg/dL 08/13/18 08/13/18 08/13/18 Range/Units 08:58 10:16 10:56 WBC (3.8-10.6) k/uL Neutrophils # (1.3-7.7) k/uL Creatinine (0.52-1.04) mg/dL Glucose (74-99) mg/dL POC Glucose (mg/dL) 286 H 225 H 169 H (75-99) mg/dL 08/13/18 08/13/18 08/13/18 Range/Units 11:52 13:10 14:23 WBC (3.8-10.6) k/uL Neutrophils # (1.3-7.7) k/uL Creatinine (0.52-1.04) mg/dL Glucose (74-99) mg/dL POC Glucose (mg/dL) 187 H 232 H 241 H (75-99) mg/dL Microbiology - Last 24 Hours (Table) 08/12/18 14:00 Gram Stain - Preliminary Sputum Sputum Culture - Preliminary 08/11/18 11:48 Blood Culture - Preliminary Blood No Growth after 48 hours 08/11/18 13:35 Urine Culture - Final Urine,Clean Catch Assessment and Plan Assessment: Acute hypoxic respiratory failure related to bilateral pneumonia Altered mental status related to multifactorial including pneumonia hypoxia and severe COPD and component of hypoventilation syndrome Bilateral pneumonia acute community-acquired Uncontrolled diabetes and hyperglycemia Severe degree of chronic persistent asthma Disorder breathing and sleep apnea Severe morbid obesity Plan: BiPAP support as needed with each night and when necessary during the day Continue insulin drip, add Lantus and continue sliding scale insulin Gentle rehydration for low urine output with problem associated with volume depletion and dehydration We'll keep in ICU today Repeat labs and x-ray tomorrow Avoid benzodiazepine and narcotics can use Xanax as needed Broad-spectrum antibiotics Breathing treatments IV steroids Follow-up on sputum studies and culture, preliminary result revealed gram- positive cocci however for now further ID is not available Has been educated about smoking cessation She has been educated about sleep disorder breathing and sleep apnea impact on cardiovascular cerebrovascular psychosocial and general health Hyperglycemia appears to be related to high-dose steroids continue insulin drip as well as Lantus as ordered Time with Patient: Greater than 30
[2018-08-13 15:13] LABS: Glucose,Whole Blood 217 mg/dL (75-99)
--- NOTE | 2018-08-13 15:19 | PN ---
PROGRESS NOTE DATE OF SERVICE: 08/13/2018 This is a 47-year-old female, who was admitted with hypoxic respiratory failure, chronic obstructive pulmonary disease with acute exacerbation, acute tracheobronchitis and with a history of obstructive sleep apnea, and morbid obesity, and she was started on IV antibiotics, IV Solu-Medrol and updraft treatments. She went into acute on chronic respiratory failure and she was transferred to ICU by Dr. Willard who is her software engineering specialist. Dr. Willard is following her in the ICU for ICU management. She is currently on BiPAP breathing support and she is also known to have diabetes mellitus and patient was getting NovoLog sliding scale as she is on Solu-Medrol IV now. Her blood sugar was running very high, so last night she was started on insulin drip to control the blood sugar adequately. Patient is to extremely short of breath and even though she is feeling slightly better than yesterday, chest x-ray shows improved aeration. Her oral intake is inadequate because she is on the BiPAP machine. Her urine output is decreasing, though will increase the IV fluid to 100 mL/hour. Dr. Willard is going to see the patient again today and when the patient's respiratory status improves, she will be transferred out of ICU. The overall prognosis is guarded. Will check her CBC and CMP tomorrow and patient will be transferred out of ICU when it is okay with Dr. Willard. The diagnosis, prognosis and therapeutic plans were discussed in detail with the patient today. MMODL / HIRON: [id number] /
[2018-08-13 16:11] LABS: Glucose,Whole Blood 157 mg/dL (75-99)
[2018-08-13] MEDS: LEVOFLOXACIN 750MG-D5W PMX 750 MG in DEXTROSE/WATER 1 150ML.BAG IVPB SCH (16:22)
[2018-08-13 17:24] LABS: Glucose,Whole Blood 153 mg/dL (75-99)
[2018-08-13 18:09] LABS: Glucose,Whole Blood 137 mg/dL (75-99)
[2018-08-13] MEDS: SODIUM CHLORIDE 0.9% 1,000 ML IV SCH (18:15)
[2018-08-13 19:00] LABS: Glucose,Whole Blood 160 mg/dL (75-99)
[2018-08-13] MEDS: BUDESONIDE 0.5 MG/2 ML NEBU INHALATION SCH (19:35)
[2018-08-13 19:39] LABS: Glucose,Whole Blood 189 mg/dL (75-99)
[2018-08-13 20:31] LABS: Glucose,Whole Blood 246 mg/dL (75-99)
[2018-08-13] MEDS: ATORVASTATIN 20 MG TAB PO SCH (20:39)
[2018-08-13] MEDS: HEPARIN SODIUM,PORCINE 5,000 UNIT/ML 1 ML VIAL SQ SCH (20:39)
[2018-08-13 21:51] LABS: Glucose,Whole Blood 187 mg/dL (75-99)
[2018-08-13 23:12] LABS: Glucose,Whole Blood 156 mg/dL (75-99)
[2018-08-14 00:06] LABS: Glucose,Whole Blood 151 mg/dL (75-99)
[2018-08-14 01:00] LABS: Glucose,Whole Blood 140 mg/dL (75-99)
[2018-08-14 02:06] LABS: Glucose,Whole Blood 154 mg/dL (75-99)
[2018-08-14 02:59] LABS: Glucose,Whole Blood 168 mg/dL (75-99)
[2018-08-14 04:03] LABS: Glucose,Whole Blood 247 mg/dL (75-99)
[2018-08-14 05:14] LABS: Glucose,Whole Blood 220 mg/dL (75-99)
[2018-08-14 05:21] LABS: Basophils % (A) 0 %; Eosinophils % (A) 0 %; HCT 43.3 % (34.0-46.0); HGB 13.7 gm/dL (11.4-16.0); Lymphocytes % (A) 13 %; MCH 30.1 pg (25.0-35.0); MCHC 31.7 g/dL (31.0-37.0); Mean Platelet Volume 8.3; Monocytes # (A) 0.4 k/uL (0-1.0); Monocytes % (A) 3 %; Neutrophils # (A) 13.1 k/uL (1.3-7.7); Neutrophils % (A) 84 %; Platelet Count 225 k/uL (150-450); RBC 4.55 m/uL (3.80-5.40); RDW 12.9 % (11.5-15.5); WBC 15.6 k/uL (3.8-10.6)
[2018-08-14 05:33] LABS: ALT 46 U/L (9-52); AST 29 U/L (14-36); Albumin 3.5 g/dL (3.5-5.0); Alkaline Phosphatase 62 U/L (38-126); Anion Gap 8 mmol/L; Blood Urea Nitrogen 17 mg/dL (7-17); Calcium 9.1 mg/dL (8.4-10.2); Carbon Dioxide 27 mmol/L (22-30); Chloride 101 mmol/L (98-107); Glucose 242 mg/dL (74-99); Phosphorus 3.4 mg/dL (2.5-4.5); Potassium 4.6 mmol/L (3.5-5.1); Sodium 136 mmol/L (137-145); Total Bilirubin 0.4 mg/dL (0.2-1.3); Total Protein 6.4 g/dL (6.3-8.2)
[2018-08-14] MEDS: ALPRAZolam 0.25 MG TAB PO PRN ×2 (05:39→21:04)
[2018-08-14] MEDS: methylPREDNISolone SOD SUCCI 125 MG/2 ML VIAL IV SCH ×4 (05:39→23:52)
[2018-08-14 06:00] LABS: Glucose,Whole Blood 201 mg/dL (75-99)
[2018-08-14 07:12] LABS: Glucose,Whole Blood 165 mg/dL (75-99)
[2018-08-14] MEDS: IPRATROPIUM-ALBUTEROL 3 ML NEB INHALATION SCH ×4 (07:14→20:28)
[2018-08-14] MEDS: BUDESONIDE 0.5 MG/2 ML NEBU INHALATION SCH ×2 (07:14→20:28)
[2018-08-14] MEDS: INSULIN REGULAR 100 UNIT in SODIUM CHLORIDE 0.9% 100 ML IV SCH (07:30)
[2018-08-14 08:20] LABS: Glucose,Whole Blood 193 mg/dL (75-99)
[2018-08-14] MEDS: ETODOLAC 400 MG TAB PO SCH ×2 (09:01→21:05)
[2018-08-14] MEDS: HEPARIN SODIUM,PORCINE 5,000 UNIT/ML 1 ML VIAL SQ SCH ×2 (09:03→21:05)
[2018-08-14] MEDS: FLUoxetine HCL 20 MG CAP PO SCH (09:03)
--- NOTE | 2018-08-14 09:11 | XR ---
EXAMINATION TYPE: XR chest 1V portable DATE OF EXAM: 08/14/2018 COMPARISON: Prior chest x-ray 08/13/2018 HISTORY: Increased shortness of breath, fever TECHNIQUE: Single frontal view of the chest is obtained. FINDINGS: Exam is stable. There are overlying cardiac leads. IMPRESSION: No acute process.
[2018-08-14] MEDS: INSULIN DETEMIR 100 UNIT/ML 10 ML VIAL SQ SCH (09:20)
[2018-08-14 10:02] LABS: Glucose,Whole Blood 195 mg/dL (75-99)
[2018-08-14 11:08] LABS: Glucose,Whole Blood 149 mg/dL (75-99)
--- NOTE | 2018-08-14 11:44 | PN ---
PROGRESS NOTE This is a 47-year-old female who has multiple medical problems and the patient is morbidly obese and she has sleep apnea and chronic obstructive pulmonary disease and the patient was brought to the emergency room because of severe difficulty in breathing and severe cough with yellowish expectoration and difficulty in sleeping and general weakness and patient was found to have acute hypoxic respiratory failure and patient was admitted to the hospital. Initially she was admitted to regular medical floor and she was then transferred to ICU by Dr. Willard, who is her regulation supervisor. The patient has been receiving IV Solu-Medrol and updraft treatments and IV antibiotics. She is getting Levaquin. She is allergic to PENICILLIN, ERYTHROMYCIN, etc. She is currently on BiPAP and she is also diabetic and her diabetes is being controlled with insulin IV drip and also Levemir. Chest x-ray today shows improved aeration and it looks better than previous x-rays and the patient also feeling slightly better than yesterday. Overall prognosis is guarded and when her respiratory status improves, Dr. Willard is planning to transfer her out of ICU. The diagnosis, prognosis and therapeutic plans were discussed in detail with the patient and also with her family. MMODL / IJN: [id number] /
[2018-08-14 12:06] LABS: Glucose,Whole Blood 137 mg/dL (75-99)
[2018-08-14 13:28] LABS: Glucose,Whole Blood 219 mg/dL (75-99)
[2018-08-14] MEDS: SODIUM CHLORIDE 0.9% 1,000 ML IV SCH ×3 (13:52→17:54)
[2018-08-14 14:22] LABS: Glucose,Whole Blood 285 mg/dL (75-99)
[2018-08-14] MEDS: LINAGLIPTIN 5 MG TABLET PO SCH (14:26)
--- NOTE | 2018-08-14 14:41 | P.PN ---
Subjective Progress Note Date: 08/14/18 Principal diagnosis: Acute COPD exacerbation, bilateral pneumonia, acute on chronic hypoxic respiratory failure, severe degree of sleep disorder breathing and sleep apnea, component of obesity hypoventilation, uncontrolled diabetes and hyperglycemia, altered mental status related to significant hypoxia related to pneumonia and COPD exacerbation, severe COPD, severe degree of morbid obesity, uncontrolled diabetes and hyperglycemia 08/14/2018, patient seen eval examined during the rounds currently patient is on 60% air wall has been using BiPAP machine 10 and 5 E. night and when necessary during the day her sugars are better under control now she is off of insulin drip still have cough congestion labs reviewed medications reviewed, white cell count is coming down chest x-ray performed earlier today reviewed and compared with the prior x-ray significant improvement in infiltrates have been noted 08/13/2018, patient seen eval examined in the ICU, continue to be short of breath patient requiring BiPAP support noted hyperglycemia is present patient is on insulin drip which is being titrated down, patient is being started on Lantus insulin will use BiPAP along with air O care plan discussed with the staff at length critical care time spent 35 minutes, labs reviewed medications reviewed radiographic studies reviewed as well 08/12/2018, patient seen eval examined in the ICU moved there from the floor due to altered mental status arterial blood gas was seen no significant hypercapnia was noted however significant hypoxia was there patient did receive some Ativan as well patient was more short of breath with low oxygenation currently patient is on BiPAP of 10/5 with 65% oxygen with BiPAP therapy mental status has improved labs reviewed medications reviewed as well, critical care time spent 35 minutes Objective - Vital Signs Vital signs: Vital Signs Temp 98.3 F 08/14/18 08:00 Pulse 66 08/14/18 12:00 Resp 16 08/14/18 12:00 BP 110/63 08/14/18 12:00 Pulse Ox 95 08/14/18 12:00 Intake & Output 08/13/18 08/14/18 08/14/18 18:59 06:59 18:59 Intake Total 692.059 9289.435 834.072 Output Total 830 1050 720 Balance 163.375 687.435 114.072 Weight 160.1 kg Intake: IV 900 1200 800 Sodium Chloride 0.9% 1, 900 1200 800 000 ml @ 100 mls/hr IV . Q10H LISA Rx#:[id number] Intake, IV Titration 93.375 57.435 34.072 Amount Insulin Regular 100 unit 93.375 57.435 34.072 In Sodium Chloride 0.9% 100 ml @ Per Protocol IV .Q0M LISA Rx#:[id number] Oral 480 Output: Urine 830 1050 720 Other: Voiding Method Indwelling Catheter Indwelling Catheter Indwelling Catheter - Exam - Constitutional General appearance: disheveled, mild distress, morbidly obese, more awake now compared to earlier this morning - EENT Eyes: EOMI, PERRLA, normal appearance ENT: hard of hearing, hearing grossly normal Ears: bilateral: normal - Neck Neck: normal ROM Carotids: bilateral: upstroke normal Thyroid: bilateral: normal size - Respiratory Respiratory: bilateral: diminished, rhonchi, wheezing, prolonged expiration, negative: dullness, rales - Cardiovascular Heart sounds: normal: S1, S2 - Gastrointestinal General gastrointestinal: decreased bowel sounds, distended, soft - Integumentary Integumentary: normal, normal turgor - Neurologic Neurologic: CNII-XII intact - Musculoskeletal Musculoskeletal: gait normal, generalized weakness, strength equal bilaterally - Psychiatric Psychiatric: A&O x's 3, appropriate affect, intact judgment & insight - Labs CBC & Chem 7: 08/14/18 04:34 08/14/18 04:34 Labs: Abnormal Lab Results - Last 24 Hours (Table) 08/13/18 08/13/18 08/13/18 Range/Units 15:11 16:09 17:22 WBC (3.8-10.6) k/uL Neutrophils # (1.3-7.7) k/uL Sodium (137-145) mmol/L Glucose (74-99) mg/dL POC Glucose (mg/dL) 217 H 157 H 153 H (75-99) mg/dL 08/13/18 08/13/18 08/13/18 Range/Units 18:07 18:58 19:38 WBC (3.8-10.6) k/uL Neutrophils # (1.3-7.7) k/uL Sodium (137-145) mmol/L Glucose (74-99) mg/dL POC Glucose (mg/dL) 137 H 160 H 189 H (75-99) mg/dL 08/13/18 08/13/18 08/13/18 Range/Units 20:29 21:50 23:10 WBC (3.8-10.6) k/uL Neutrophils # (1.3-7.7) k/uL Sodium (137-145) mmol/L Glucose (74-99) mg/dL POC Glucose (mg/dL) 246 H 187 H 156 H (75-99) mg/dL 08/14/18 08/14/18 08/14/18 Range/Units 00:04 00:58 02:05 WBC (3.8-10.6) k/uL Neutrophils # (1.3-7.7) k/uL Sodium (137-145) mmol/L Glucose (74-99) mg/dL POC Glucose (mg/dL) 151 H 140 H 154 H (75-99) mg/dL 08/14/18 08/14/18 08/14/18 Range/Units 02:57 03:59 04:34 WBC 15.6 H (3.8-10.6) k/uL Neutrophils # 13.1 H (1.3-7.7) k/uL Sodium (137-145) mmol/L Glucose (74-99) mg/dL POC Glucose (mg/dL) 168 H 247 H (75-99) mg/dL 08/14/18 08/14/18 08/14/18 Range/Units 04:34 05:12 05:58 WBC (3.8-10.6) k/uL Neutrophils # (1.3-7.7) k/uL Sodium 136 L (137-145) mmol/L Glucose 242 H (74-99) mg/dL POC Glucose (mg/dL) 220 H 201 H (75-99) mg/dL 08/14/18 08/14/18 08/14/18 Range/Units 07:11 08:19 10:00 WBC (3.8-10.6) k/uL Neutrophils # (1.3-7.7) k/uL Sodium (137-145) mmol/L Glucose (74-99) mg/dL POC Glucose (mg/dL) 165 H 193 H 195 H (75-99) mg/dL 08/14/18 08/14/18 08/14/18 Range/Units 11:07 12:05 13:26 WBC (3.8-10.6) k/uL Neutrophils # (1.3-7.7) k/uL Sodium (137-145) mmol/L Glucose (74-99) mg/dL POC Glucose (mg/dL) 149 H 137 H 219 H (75-99) mg/dL 08/14/18 Range/Units 14:20 WBC (3.8-10.6) k/uL Neutrophils # (1.3-7.7) k/uL Sodium (137-145) mmol/L Glucose (74-99) mg/dL POC Glucose (mg/dL) 285 H (75-99) mg/dL Microbiology - Last 24 Hours (Table) 08/11/18 11:48 Blood Culture - Preliminary Blood No Growth after 72 hours 08/12/18 14:00 Gram Stain - Final Sputum Sputum Culture - Final Assessment and Plan Assessment: Acute hypoxic respiratory failure related to bilateral pneumonia Altered mental status related to multifactorial including pneumonia hypoxia and severe COPD and component of hypoventilation syndrome Bilateral pneumonia acute community-acquired Uncontrolled diabetes and hyperglycemia Severe degree of chronic persistent asthma Disorder breathing and sleep apnea Severe morbid obesity Plan: BiPAP support as needed with each night and when necessary during the day Airvo and titrate oxygen down as tolerated Continue insulin drip, add Lantus and continue sliding scale insulin Gentle rehydration for low urine output with problem associated with volume depletion and dehydration We'll move patient to the medical floor Reviewed labs and x-ray tomorrow Avoid benzodiazepine and narcotics can use Xanax as needed Broad-spectrum antibiotics Breathing treatments IV steroids Has been educated about smoking cessation She has been educated about sleep disorder breathing and sleep apnea impact on cardiovascular cerebrovascular psychosocial and general health Hyperglycemia appears to be related to high-dose steroids continue insulin drip as well as Lantus as ordered Time with Patient: Greater than 30
[2018-08-14 15:37] LABS: Glucose,Whole Blood 261 mg/dL (75-99)
[2018-08-14] MEDS: LEVOFLOXACIN 750 MG TAB PO SCH (16:11)
[2018-08-14 16:59] LABS: Glucose,Whole Blood 197 mg/dL (75-99)
[2018-08-14] MEDS: INSULIN ASPART 100 UNIT/ML 1 ML 10 ML VIAL SQ SCH ×2 (17:21→21:05)
[2018-08-14] MEDS: metFORMIN 500 MG TAB PO SCH (18:28)
[2018-08-14] MEDS: ATORVASTATIN 20 MG TAB PO SCH (21:04)
[2018-08-14 21:25] LABS: Glucose,Whole Blood 259 mg/dL (75-99)
[2018-08-15] MEDS: IPRATROPIUM-ALBUTEROL 3 ML NEB INHALATION PRN (04:37)
[2018-08-15] MEDS: SODIUM CHLORIDE 0.9% 1,000 ML IV SCH ×3 (05:30→23:34)
[2018-08-15] MEDS: methylPREDNISolone SOD SUCCI 125 MG/2 ML VIAL IV SCH ×4 (06:24→23:33)
[2018-08-15 07:25] LABS: Glucose,Whole Blood 192 mg/dL (75-99)
[2018-08-15] MEDS: INSULIN ASPART 100 UNIT/ML 1 ML 10 ML VIAL SQ SCH ×4 (08:17→21:58)
[2018-08-15] MEDS: metFORMIN 500 MG TAB PO SCH ×2 (08:17→17:06)
[2018-08-15] MEDS: HEPARIN SODIUM,PORCINE 5,000 UNIT/ML 1 ML VIAL SQ SCH ×2 (08:18→20:18)
[2018-08-15] MEDS: LINAGLIPTIN 5 MG TABLET PO SCH (08:18)
[2018-08-15] MEDS: ETODOLAC 400 MG TAB PO SCH ×2 (08:18→20:17)
[2018-08-15] MEDS: FLUoxetine HCL 20 MG CAP PO SCH (08:18)
[2018-08-15] MEDS: INSULIN DETEMIR 100 UNIT/ML 10 ML VIAL SQ SCH (08:30)
[2018-08-15] MEDS: IPRATROPIUM-ALBUTEROL 3 ML NEB INHALATION SCH ×4 (08:48→20:46)
[2018-08-15] MEDS: BUDESONIDE 0.5 MG/2 ML NEBU INHALATION SCH ×2 (08:48→20:46)
[2018-08-15 09:09] LABS: Basophils % (A) 0 %; Eosinophils % (A) 0 %; HCT 41.6 % (34.0-46.0); Lymphocytes # (A) 2.2 k/uL (1.0-4.8); Lymphocytes % (A) 17 %; MCHC 33.7 g/dL (31.0-37.0); Mean Platelet Volume 7.8; Monocytes # (A) 0.5 k/uL (0-1.0); Monocytes % (A) 4 %; Neutrophils # (A) 10.6 k/uL (1.3-7.7); Neutrophils % (A) 79 %; Platelet Count 210 k/uL (150-450); RBC 4.52 m/uL (3.80-5.40); RDW 12.8 % (11.5-15.5); WBC 13.4 k/uL (3.8-10.6)
[2018-08-15 09:27] LABS: ALT 60 U/L (9-52); AST 46 U/L (14-36); Albumin 3.6 g/dL (3.5-5.0); Alkaline Phosphatase 58 U/L (38-126); Anion Gap 9 mmol/L; Blood Urea Nitrogen 17 mg/dL (7-17); Calcium 8.7 mg/dL (8.4-10.2); Carbon Dioxide 27 mmol/L (22-30); Chloride 102 mmol/L (98-107); Glucose 259 mg/dL (74-99); Magnesium 2.1 mg/dL (1.6-2.3); Phosphorus 3.2 mg/dL (2.5-4.5); Potassium 4.6 mmol/L (3.5-5.1); Sodium 138 mmol/L (137-145); Total Bilirubin 0.5 mg/dL (0.2-1.3); Total Protein 6.3 g/dL (6.3-8.2)
--- NOTE | 2018-08-15 11:54 | PN ---
PROGRESS NOTE DATE OF SERVICE: 08/15/2018 This is a 47-year-old female who was admitted with severe cough, shortness of breath, wheezing, and she was found to be in hypoxic respiratory failure. She was admitted to the hospital, initially to the medical floor, but her condition was getting progressively worse and she went into acute respiratory failure and she was transferred to ICU by Dr. Willard, who is her client support analyst. She was placed on a BiPAP machine. She also has diabetes mellitus and her diabetes is being controlled with insulin drip and Lantus insulin. Her respiratory status improved in the ICU and Dr. Willard transferred her out of ICU. Currently she is still on BiPAP support and she is still on an insulin drip and Lantus insulin. She is getting updraft treatments, IV antibiotics, Levaquin, but she is feeling better. Still has a severe cough. Her vital signs are otherwise stable. The patient is on IV Solu-Medrol, IV antibiotics, insulin drip and Lantus insulin. She is also morbidly obese. PLAN: Will continue current treatments and Dr. Willard is following the patient for her respiratory problems. Prognosis is guarded. The diagnosis, prognosis and therapeutic plans were discussed in detail with the patient today. MMODL / IJN: [id number] /
[2018-08-15 12:12] LABS: Glucose,Whole Blood 231 mg/dL (75-99)
[2018-08-15 17:02] LABS: Glucose,Whole Blood 224 mg/dL (75-99)
[2018-08-15] MEDS: LEVOFLOXACIN 750 MG TAB PO SCH (17:06)
[2018-08-15] MEDS: ATORVASTATIN 20 MG TAB PO SCH (20:17)
[2018-08-15] MEDS: ALPRAZolam 0.25 MG TAB PO PRN (20:47)
[2018-08-15] MEDS: ACETAMINOPHEN TAB 325 MG TAB PO PRN (20:47)
[2018-08-15 21:41] LABS: Glucose,Whole Blood 184 mg/dL (75-99)
[2018-08-16] MEDS: IPRATROPIUM-ALBUTEROL 3 ML NEB INHALATION PRN (04:18)
[2018-08-16] MEDS: methylPREDNISolone SOD SUCCI 125 MG/2 ML VIAL IV SCH ×2 (05:44→12:03)
[2018-08-16 07:30] LABS: Glucose,Whole Blood 247 mg/dL (75-99)
[2018-08-16] MEDS: INSULIN ASPART 100 UNIT/ML 1 ML 10 ML VIAL SQ SCH ×4 (08:20→21:48)
[2018-08-16] MEDS: metFORMIN 500 MG TAB PO SCH ×2 (08:21→16:40)
[2018-08-16] MEDS: ETODOLAC 400 MG TAB PO SCH ×2 (08:21→20:20)
[2018-08-16] MEDS: FLUoxetine HCL 20 MG CAP PO SCH (08:22)
[2018-08-16] MEDS: LINAGLIPTIN 5 MG TABLET PO SCH (08:22)
[2018-08-16] MEDS: HEPARIN SODIUM,PORCINE 5,000 UNIT/ML 1 ML VIAL SQ SCH ×2 (08:22→20:21)
[2018-08-16] MEDS: SODIUM CHLORIDE 0.9% 1,000 ML IV SCH (08:23)
[2018-08-16] MEDS: ACETAMINOPHEN TAB 325 MG TAB PO PRN ×2 (08:25→20:23)
[2018-08-16] MEDS: BUDESONIDE 0.5 MG/2 ML NEBU INHALATION SCH ×2 (08:56→20:33)
[2018-08-16] MEDS: IPRATROPIUM-ALBUTEROL 3 ML NEB INHALATION SCH ×4 (08:57→20:33)
[2018-08-16] MEDS: INSULIN DETEMIR 100 UNIT/ML 10 ML VIAL SQ SCH (10:50)
[2018-08-16 11:51] LABS: Glucose,Whole Blood 259 mg/dL (75-99)
--- NOTE | 2018-08-16 13:22 | PN ---
PROGRESS NOTE DATE OF SERVICE: 08/16/2018 This 47-year-old white female was admitted to the hospital with acute on chronic hypoxic respiratory failure and she also had severe cough productive of yellowish sputum and will very severe cough causing her extremely sick and dyspneic and she was admitted with a diagnosis of acute exacerbation of COPD and acute asthma and hypoxic respiratory failure and acute tracheobronchitis and possible pneumonia. The patient was seen by Dr. Willard, her store standards associate in consultation and because of severe respiratory distress, she was transferred to the ICU and she was placed on BiPAP machine and she is also known to have diabetes mellitus and she is getting insulin IV drip and Lantus insulin. The patient was transferred out of ICU and her condition became stable and she is currently on Levaquin orally and is still on IV Solu-Medrol and updraft treatments and the patient's oral intake is improving. She is able to move around without help. Dr. Willard is also following the patient and overall prognosis is guarded. Her oral intake has improved. The IV fluid is discontinued and she is currently on IV Solu-Medrol and this also will be discontinued and will place her on oral prednisone. If her condition remains stable, she will be discharged home when it is okay with Dr. Willard, possibly tomorrow. MMODL / IJN: [id number] /
[2018-08-16] MEDS: LEVOFLOXACIN 750 MG TAB PO SCH (16:39)
[2018-08-16 17:41] LABS: Glucose,Whole Blood 238 mg/dL (75-99)
[2018-08-16] MEDS: predniSONE 20 MG TAB PO SCH (20:21)
[2018-08-16] MEDS: ATORVASTATIN 20 MG TAB PO SCH (20:21)
[2018-08-16 21:09] LABS: Glucose,Whole Blood 151 mg/dL (75-99)
[2018-08-17] MEDS: ACETAMINOPHEN TAB 325 MG TAB PO PRN (04:23)
[2018-08-17 07:22] LABS: Glucose,Whole Blood 171 mg/dL (75-99)
[2018-08-17] MEDS: ETODOLAC 400 MG TAB PO SCH (07:27)
[2018-08-17] MEDS: IPRATROPIUM-ALBUTEROL 3 ML NEB INHALATION SCH ×2 (07:27→11:25)
[2018-08-17] MEDS: HEPARIN SODIUM,PORCINE 5,000 UNIT/ML 1 ML VIAL SQ SCH ×2 (07:27→07:40)
[2018-08-17] MEDS: BUDESONIDE 0.5 MG/2 ML NEBU INHALATION SCH (07:27)
[2018-08-17] MEDS: metFORMIN 500 MG TAB PO SCH (07:27)
[2018-08-17] MEDS: predniSONE 20 MG TAB PO SCH (07:32)
[2018-08-17] MEDS: LINAGLIPTIN 5 MG TABLET PO SCH (07:32)
[2018-08-17] MEDS: FLUoxetine HCL 20 MG CAP PO SCH (07:32)
[2018-08-17] MEDS: INSULIN ASPART 100 UNIT/ML 1 ML 10 ML VIAL SQ SCH ×2 (07:37→12:44)
[2018-08-17 07:47] VITALS: BP 139/84; RESP 18; TEMP 98.9
[2018-08-17] MEDS: INSULIN DETEMIR 100 UNIT/ML 10 ML VIAL SQ SCH (08:48)
[2018-08-17 11:17] LABS: Glucose,Whole Blood 184 mg/dL (75-99)
[2018-08-17 11:25] VITALS: PULSE 88
--- NOTE | 2018-08-17 12:33 | P.PN ---
Subjective Progress Note Date: 08/17/18 Principal diagnosis: Acute COPD exacerbation, bilateral pneumonia, acute on chronic hypoxic respiratory failure, severe degree of sleep disorder breathing and sleep apnea, component of obesity hypoventilation, uncontrolled diabetes and hyperglycemia, altered mental status related to significant hypoxia related to pneumonia and COPD exacerbation, severe COPD, severe degree of morbid obesity, uncontrolled diabetes and hyperglycemia 08/17/2018, patient seen evjennifer examined during the rounds clinically patient has been doing very well she's on supplemental oxygen breathing cuff in no obvious distress present hemodynamic status stable cough congestion is improved patient is sputum still is sad tenacious thick but is much co founder in color, she is on 2 L oxygen now and sats are 93% she has been using BiPAP machine at nighttime, patient expresses that she has a working condition CPAP machine at home however pressure needs to be adjusted which we perform outpatient setting, patient does have a working nebulizer machine his prescription has been provided for bronchodilators including DuoNeb and Pulmicort Ventolin HFA has been provided as well, patient is being planned for discharge later on today 08/14/2018, patient seen evjennifer examined during the rounds currently patient is on 60% air wall has been using BiPAP machine 10 and 5 E. night and when necessary during the day her sugars are better under control now she is off of insulin drip still have cough congestion labs reviewed medications reviewed, white cell count is coming down chest x-ray performed earlier today reviewed and compared with the prior x-ray significant improvement in infiltrates have been noted 08/13/2018, patient seen ishan examined in the ICU, continue to be short of breath patient requiring BiPAP support noted hyperglycemia is present patient is on insulin drip which is being titrated down, patient is being started on Lantus insulin will use BiPAP along with air O care plan discussed with the staff at length critical care time spent 35 minutes, labs reviewed medications reviewed radiographic studies reviewed as well 08/12/2018, patient seen ishan examined in the ICU moved there from the floor due to altered mental status arterial blood gas was seen no significant hypercapnia was noted however significant hypoxia was there patient did receive some Ativan as well patient was more short of breath with low oxygenation currently patient is on BiPAP of 10/5 with 65% oxygen with BiPAP therapy mental status has improved labs reviewed medications reviewed as well, critical care time spent 35 minutes Objective - Vital Signs Vital signs: Vital Signs Temp 98.9 F 08/17/18 07:46 Pulse 88 08/17/18 11:40 Resp 18 08/17/18 07:46 BP 139/84 08/17/18 07:46 Pulse Ox 93 L 08/17/18 07:46 Intake & Output 08/16/18 08/17/18 08/17/18 18:59 06:59 18:59 Intake Total 400 Balance 400 Weight 160.1 kg Intake: Oral 400 Other: Voiding Method Bedside Commode Toilet # Voids 2 1 - Exam - Constitutional General appearance: disheveled, mild distress, morbidly obese, more awake now compared to earlier this morning - EENT Eyes: EOMI, PERRLA, normal appearance ENT: hard of hearing, hearing grossly normal Ears: bilateral: normal - Neck Neck: normal ROM Carotids: bilateral: upstroke normal Thyroid: bilateral: normal size - Respiratory Respiratory: bilateral: diminished, rhonchi, wheezing, prolonged expiration, overall improved compared to prior exam - Cardiovascular Heart sounds: normal: S1, S2 - Gastrointestinal General gastrointestinal: decreased bowel sounds, distended, soft - Integumentary Integumentary: normal, normal turgor - Neurologic Neurologic: CNII-XII intact - Musculoskeletal Musculoskeletal: gait normal, generalized weakness, strength equal bilaterally - Psychiatric Psychiatric: A&O x's 3, appropriate affect, intact judgment & insight - Labs CBC & Chem 7: 08/15/18 08:37 08/15/18 08:37 Labs: Abnormal Lab Results - Last 24 Hours (Table) 08/16/18 08/16/18 08/17/18 Range/Units 17:30 21:07 07:20 POC Glucose (mg/dL) 238 H 151 H 171 H (75-99) mg/dL 08/17/18 Range/Units 11:13 POC Glucose (mg/dL) 184 H (75-99) mg/dL Microbiology - Last 24 Hours (Table) 08/11/18 11:48 Blood Culture - Preliminary Blood No Growth after 120 hours Assessment and Plan Assessment: Acute hypoxic respiratory failure related to bilateral pneumonia Altered mental status related to multifactorial including pneumonia hypoxia and severe COPD and component of hypoventilation syndrome Bilateral pneumonia acute community-acquired Uncontrolled diabetes and hyperglycemia Severe degree of chronic persistent asthma Disorder breathing and sleep apnea Severe morbid obesity Plan: C-PAP support as needed with each night and when necessary during the day Airvo and titrate oxygen down as tolerated Continue insulin sliding scale insulin Can be discharged from pulmonary standpoint with follow-up in outpatient setting Reviewed labs and x-ray tomorrow Avoid benzodiazepine and narcotics can use Xanax as needed Broad-spectrum antibiotics, prescription has been provided for oral antibiotics by primary service Breathing treatments IV steroids, has been changed to oral with a tapering dose Has been educated about smoking cessation She has been educated about sleep disorder breathing and sleep apnea impact on cardiovascular cerebrovascular psychosocial and general health Time with Patient: Greater than 30
[2018-08-17 13:40] VITALS: BMI 62.5
--- NOTE | 2018-08-17 15:29 | DS ---
DISCHARGE SUMMARY DATE OF ADMISSION: 08/11/2018 DATE OF DISCHARGE: 08/17/2018 DISCHARGE DIAGNOSES: 1. Acute on chronic hypoxic respiratory failure. 2. Chronic obstructive pulmonary disease with acute exacerbation. 3. Acute tracheobronchitis. 4. Bilateral pneumonia. 5. Sepsis with elevated temperature and elevated lactic acid. 6. Diabetes mellitus. 7. Fibromyalgia. 8. Osteoarthritis, multiple joints. 9. Morbid obesity. 10.Mental depression. This is a 47-year-old female who was brought to the emergency room with severe cough, wheezing, difficulty in breathing and shortness of breath and patient had these symptoms for several days, but it was progressively getting worse and she also has a history of obstructive sleep apnea. In the ER her CBC showed a WBC count of 8.5, hemoglobin 15.5, platelet count 230,000. Sodium 139, potassium 4.5, creatinine 0.48, and BUN 9, glucose 142, lactic acid, lactic acid was 4.8. Chest x-ray showed evidence of bronchitis and chronic obstructive pulmonary disease. Patient was admitted to the hospital for further evaluation and treatment. For details of the physical examination at the time of admission, please refer to history and physical. HOSPITAL COURSE: Initially, the patient was admitted to regular medical floor and apparently patient became extremely short of breath and went into acute hypoxic respiratory failure. Patient was seen by Dr. Willard, her coil strapper in consultation and he transferred the patient to ICU and patient was placed on BiPAP machine and she also is noted have diabetes mellitus and her diabetes was controlled with NovoLog sliding scale initially and then she was also placed on Lantus insulin and when her respiratory status improved, she was transferred out of ICU and she was getting IV antibiotics, Levaquin and updraft treatments and IV Solu-Medrol. As her condition slowly improved, the IV antibiotics was discontinued and she was placed on oral Levaquin and she also started increasing her activities and patient showed significant improvement in her respiratory status and her coil strapper felt that she could be discharged home. Patient is going to be discharged home on 08/17/2018 and as she is oxygen dependent and as recommended by Dr. Willard, the coil strapper, patient will be discharged home with home oxygen and also she will continue her previous home medications and Levaquin 500 mg p.o. daily for 8 more days and prednisone 30 mg p.o. daily for 5 days and then 20 mg p.o. daily for 5 days and then 10 mg p.o. daily for 5 days. She will also continue her other previous medications including Januvia 100 mg p.o. daily, metformin 1000 mg p.o. b.i.d. and Prozac 20 mg p.o. daily, Voltaren 25 mg p.o. b.i.d., Lipitor 20 mg p.o. daily, Tylenol mg p.o. q.6-8 hours p.r.n. She will also continue with the DuoNeb nebulizers q.6 hours p.r.n. and Xanax 0.25 mg p.o. t.i.d. p.r.n., Pulmicort inhaler b.i.d. and she will be followed by Dr. Willard for her pulmonary problems in about a week's time and also she will be seen in my office for followup in one week. MMODL / IJN: [id number] /
== END 2018-08-17 14:28 | disposition home or self-care (01) | DRG 871 ==
LOC: EC 11:05 → 4MS4W 13:23 → 6ICU 08-12 08:35 → 4MS4W 08-14 16:36
PROVIDERS: ADMIT Internal Medicine; ATTEND Internal Medicine
PROC: 5A09557 Assistance with Respiratory Ventilation, Greater than 96 Consecutive Hours, Continuous Positive Airway Pressure (ICD-10-PCS; principal; 2018-08-12)
DX: A41.9 Sepsis, unspecified organism (principal); J18.9 Pneumonia, unspecified organism; J96.21 Acute and chronic respiratory failure with hypoxia; J44.0 Chronic obstructive pulmonary disease with (acute) lower respiratory infection; J44.1 Chronic obstructive pulmonary disease with (acute) exacerbation; E66.2 Morbid (severe) obesity with alveolar hypoventilation; Z68.44 Body mass index [BMI] 60.0-69.9, adult; J20.9 Acute bronchitis, unspecified; J45.50 Severe persistent asthma, uncomplicated; E11.65 Type 2 diabetes mellitus with hyperglycemia; T38.0X5A Adverse effect of glucocorticoids and synthetic analogues, initial encounter; G47.33 Obstructive sleep apnea (adult) (pediatric); M79.7 Fibromyalgia; E78.5 Hyperlipidemia, unspecified; M19.91 Primary osteoarthritis, unspecified site; F60.3 Borderline personality disorder; F32.9 Major depressive disorder, single episode, unspecified; H91.90 Unspecified hearing loss, unspecified ear; F17.210 Nicotine dependence, cigarettes, uncomplicated; Z71.6 Tobacco abuse counseling; Z71.3 Dietary counseling and surveillance; Z79.84 Long term (current) use of oral hypoglycemic drugs; Z79.1 Long term (current) use of non-steroidal anti-inflammatories (NSAID); Z79.899 Other long term (current) drug therapy; Z99.89 Dependence on other enabling machines and devices; Z98.891 History of uterine scar from previous surgery; Z98.51 Tubal ligation status; Z88.1 Allergy status to other antibiotic agents; Z88.0 Allergy status to penicillin; Z88.8 Allergy status to other drugs, medicaments and biological substances; Z83.2 Family history of diseases of the blood and blood-forming organs and certain disorders involving the immune mechanism; Z83.3 Family history of diabetes mellitus; Z80.1 Family history of malignant neoplasm of trachea, bronchus and lung
CPT/HCPCS: 36415; 36600; 71045; 71046; 80053; 81001; 81003; 82805; 83036; 83605; 83735; 84100; 85025; 85610; 85730; 87040; 87070; 87086; 87205; 93005; 94640; 94660; 96361; 96365; 96375; 99285

== ENCOUNTER → 2019-03-02 | Outpatient (CLI) | payer OTHER ==
[2019-03-02 11:17] VITALS: BP 147/85; PULSE 97; RESP 20; TEMP 98.1; BMI 61.9
[2019-03-02 12:40] LABS: HCT 49.2 % (34.0-46.0); HGB 15.8 gm/dL (11.4-16.0); MCH 29.3 pg (25.0-35.0); MCV 91.4 fL (80.0-100.0); Mean Platelet Volume 8.2; Platelet Count 277 k/uL (150-450); RBC 5.38 m/uL (3.80-5.40); RDW 13.1 % (11.5-15.5); WBC 9.1 k/uL (3.8-10.6)
--- NOTE | 2019-03-02 12:44 | P.HPOB ---
History of Present Illness H&P Date: 03/02/19 Chief Complaint: The patient is here for routine gynecologic exam. This is a 48-year-old G2 PII with an LMP of 02/25/2019. The patient is status post tubal ligation. She is without gynecologic complaints. She states her menstrual periods are regular every month. Review of Systems The patient states she has gained about 7 to 10 pounds during the last year. She refused to be weighed today. She states she was recently weighed at her primary care physician's office. She denies respiratory, cardiac, or G.I. problems. Past Medical History Past Medical History: Asthma, COPD, Diabetes Mellitus, Fibromyalgia, Hyperlipidemia, Osteoarthritis (OA) Additional Past Medical History / Comment(s): Morbid obesity, Degenerative Disc Disease, diabetes type II. Past SPECIAL EDUCATION INSTRUCTOR history: gonorrhea many years ago. She has no other history of STDs. History of Any Multi-Drug Resistant Organisms: None Reported Past Surgical History: Section, Orthopedic Surgery, Tonsillectomy, Tubal Ligation Additional Past Surgical History / Comment(s): tumor biopsy from neck (thyroid area), ganglion cyst removed from left footpain, exp. laparoscopy Past Anesthesia/Blood Transfusion Reactions: Previous Problems w/ Anesthesia Additional Past Anesthesia/Blood Transfusion Reaction / Comment(s): States "could not catch her breath when she awoke" from general anesthesia Past Psychological History: Anxiety, Bipolar, Depression Additional Psychological History / Comment(s): Borderline Personality Disorder Smoking Status: Current every day smoker (1 pack per day) Past Alcohol Use History: None Reported Past Drug Use History: None Reported Additional History: She is and has been with her boyfriend since 2012 and lives with him. She is unemployed. - Past Family History Mother Family Medical History: Cancer Additional Family Medical History / Comment(s): Lung cancer Brother(s) Family Medical History: Diabetes Mellitus, Deep Vein Thrombosis (DVT) Medications and Allergies Home Medications Medication Instructions Recorded Confirmed Type FLUoxetine HCL [PROzac] 20 mg PO DAILY 03/08/15 03/02/19 History Atorvastatin [Lipitor] 20 mg PO HS 08/11/18 03/02/19 History Diclofenac Sodium [Voltaren] 75 mg PO BID 08/11/18 03/02/19 History metFORMIN HCL 1,000 mg PO BID 08/11/18 03/02/19 History sitaGLIPtin [Januvia] 100 mg PO DAILY 08/11/18 03/02/19 History Albuterol Inhaler [Ventolin Hfa 2 puff INHALATION RT-Q6H PRN #1 08/17/18 03/02/19 Rx Inhaler] inhaler Budesonide [Pulmicort] 0.5 mg INHALATION BID #60 neb 08/17/18 03/02/19 Rx Ipratropium-Albuterol Nebulize 3 ml INHALATION QID #120 neb 08/17/18 03/02/19 Rx [Duoneb 0.5 mg-3 mg/3 ml Soln] Levofloxacin [Levaquin] 500 mg PO DAILY #8 tab 08/17/18 03/02/19 Rx predniSONE 10 mg PO TID #30 tab 08/17/18 03/02/19 Rx Allergies Allergy/AdvReac Type Severity Reaction Status Date / Time erythromycin base Allergy Severe Rash/Hives/ Verified 03/02/19 10:44 [Erythromycin Base] SOB amoxicillin [Amoxicillin] Allergy Rash/Hives Verified 03/02/19 10:44 bupropion HCl Allergy Swelling Verified 03/02/19 10:44 [From Wellbutrin] cephalexin monohydrate Allergy Rash/Hives, Verified 03/02/19 10:44 [From Keflex] SOME SHORTNESS OF BREATH ONE A DAY MULTIVITAMIN Allergy Itching/HIV Uncoded 03/02/19 10:44 ES Exam Vital Signs Temp Pulse Resp BP Pulse Ox 03/02/19 11:13 98.1 F 97 20 147/85 98 Intake and Output 03/01/19 03/02/19 03/02/19 22:59 06:59 14:59 Other: Weight 158.757 kg Height 5'3", weight was refused by the patient. She states she was recently weighed elsewhere and she states she weighed 350 pounds at that time. BMI 62 based on her stated weight. This is a well-developed well-nourished obese white female who is alert and oriented times 3 in no acute distress. HEENT: Within normal limits. NECK: Supple without mass or thyromegaly. CHEST AND LUNGS: Clear to auscultation. HEART: Regular rate and rhythm. BREASTS: Are without mass or discharge. AXILLARY EXAM: Negative for adenopathy. BACK: Negative for CVA tenderness. ABDOMEN: Soft, obese, nontender, without palpable masses. PELVIC EXAM: Normal external genitalia. Vagina appears normal. With the largest speculum, the cervix could ultimately be partially visualized because of the very deep vagina. There were no visible cervical lesions, but this was limited. There is no unusual discharge. There is no evidence of prolapse. The uterus is midposition, nongravid size and nontender. There are no palpable adnexal masses or tenderness. Bimanual examination is limited secondary to her size. RECTAL EXAM: negative for mass or tenderness and is negative for occult blood. EXTREMITIES: Nontender. IMPRESSION: 1. 48-year-old obese female with unremarkable gynecologic exam, however, pelvic exam is limited secondary to her size. 2. Multiple medical problems. PLAN: 1. Co-test Pap smear was performed. 2. Self breast awareness was discussed with the patient. 3. Mammogram was benign on 07/02/2018. She will repeat this in one to 2 years. 4. Osteoporosis prevention was discussed. I have stressed the importance of adequate calcium, vitamin D and regular exercise. Recommended amounts of calcium and vitamin D were also discussed. 5. I have recommended that she tried to quit smoking. We discussed several reasons why this is important. 6. We have discussed the importance of weight control and weight loss. I have stressed the importance of regular exercise and good nutrition. She states she is currently undergoing a program done through her medical insurance. We've also discussed the option of bariatric surgery, which she will consider. 7. She will keeping menstrual calendar and let me know if she is having any menstrual problems. 8.She was advised to return in one year for her annual well woman exam.
[2019-03-02 20:30] LABS: Albumin 4.5 g/dL (3.80-4.90); Albumin/Globulin Ratio 2.14 (1.60-3.17); Anion Gap 9.8 mmol/L (4.00-12.00); Calcium 9.7 mg/dL (8.7-10.3); Carbon Dioxide 26.2 mmol/L (21.6-31.8); Globulin 2.1 g/dL (1.6-3.3); LDL Cholesterol,Calculated 133.8 mg/dL (0.0-131.0); Potassium 4.9 mmol/L (3.5-5.5); Total Bilirubin 0.6 mg/dL (0.3-1.2); Total Protein 6.6 g/dL (6.2-8.2); VLDL Calculation 65.2 mg/dL (5.00-40.00)
== END | disposition home or self-care (01) ==
LOC: WWCWWP 10:32
PROVIDERS: ATTEND Obstetrics & Gynecology
DX: I11.9 Hypertensive heart disease without heart failure (principal); E11.9 Type 2 diabetes mellitus without complications; E78.2 Mixed hyperlipidemia; K21.0 Gastro-esophageal reflux disease with esophagitis
CPT/HCPCS: 80053; 80061; 83036; 85027

== ENCOUNTER → 2019-07-21 | Outpatient (CLI) | payer OTHER ==
[2019-07-21 09:50] LABS: Basophils # (A) 0.1 k/uL (0-0.2); Basophils % (A) 1 %; Eosinophils # (A) 0.2 k/uL (0-0.7); Eosinophils % (A) 2 %; HCT 45.6 % (34.0-46.0); HGB 15.4 gm/dL (11.4-16.0); Lymphocytes # (A) 3.1 k/uL (1.0-4.8); Lymphocytes % (A) 29 %; MCH 30.5 pg (25.0-35.0); MCHC 33.7 g/dL (31.0-37.0); MCV 90.5 fL (80.0-100.0); Mean Platelet Volume 8.1; Monocytes # (A) 0.4 k/uL (0-1.0); Monocytes % (A) 4 %; Neutrophils # (A) 6.8 k/uL (1.3-7.7); Neutrophils % (A) 63 %; Platelet Count 218 k/uL (150-450); RBC 5.04 m/uL (3.80-5.40); WBC 10.8 k/uL (3.8-10.6)
[2019-07-21 16:58] LABS: Vitamin D 25 Hydroxy 16.8 ng/mL (30.0-100.0)
[2019-07-21 17:02] LABS: African American GFR (CKD) 124.9 (60.0-200.0); Albumin 4.3 g/dL (3.80-4.90); Albumin/Globulin Ratio 1.87 (1.60-3.17); Anion Gap 10.9 mmol/L (4.00-12.00); BUN/Creat Ratio 16.67 Ratio (12.00-20.00); Carbon Dioxide 24.1 mmol/L (21.6-31.8); Chol/HDL Ratio 3.47; Globulin 2.3 g/dL (1.6-3.3); Potassium 4.1 mmol/L (3.5-5.5); Total Bilirubin 0.7 mg/dL (0.3-1.2); Total Protein 6.6 g/dL (6.2-8.2)
[2019-07-21 18:49] LABS: Hemoglobin A1C 7.2 % (4.0-6.0)
== END | disposition home or self-care (01) ==
LOC: LABWHC1 08:46
PROVIDERS: ATTEND Internal Medicine
DX: E11.65 Type 2 diabetes mellitus with hyperglycemia (principal); E78.2 Mixed hyperlipidemia; G89.29 Other chronic pain; M25.561 Pain in right knee; G47.30 Sleep apnea, unspecified; J44.9 Chronic obstructive pulmonary disease, unspecified; Z72.0 Tobacco use
CPT/HCPCS: 36415; 80053; 80061; 82306; 82607; 83036; 84443; 85025

== ENCOUNTER → 2019-11-24 | Outpatient (CLI) | payer OTHER ==
[2019-11-24 16:32] LABS: Chol/HDL Ratio 3.19
[2019-11-24 19:04] LABS: Urine Creatinine 122.2 mg/dL
[2019-11-24 23:53] LABS: Hemoglobin A1C 7.7 % (4.0-6.0)
== END ==
LOC: LABWHC1 08:21
PROVIDERS: ATTEND Internal Medicine
DX: E11.65 Type 2 diabetes mellitus with hyperglycemia (principal)
CPT/HCPCS: 36415; 80061; 82043; 82570; 83036

== ENCOUNTER 2020-06-22 11:43 | Emergency (ER) | payer OTHER ==
[2020-06-22 11:49] VITALS: RESP 18
[2020-06-22] MEDS ORDERED: LIDOCAINE 5% PATCH TOPICAL STA (12:22)
[2020-06-22] MEDS ORDERED: HYDROmorphone 1 MG/ML 1 ML SYRINGE IM STA (12:22)
--- NOTE | 2020-06-22 12:23 | ED ---
Back Pain HPI - General Chief Complaint: Back Pain/Injury Stated Complaint: Back hip & leg pain Time Seen by Provider: 06/22/20 12:09 Source: patient Limitations: physical limitation - History of Present Illness Initial Comments: Patient is a 49-year-old female with history of chronic back pain percent emergency Department with chief complaint of back and hip pain. Patient states she's had an MRI [place] neurologist for her back pain. Patient states she is scheduled to have cortisone injections. Patient also states that 2 weeks ago she is started physical therapy for the back pain and after her most recent session, the pain has greatly increased in severity. Patient reports left back pain in the lumbosacral region with radiation along the anterior lateral aspect of the left thigh.. Patient states she has this chronic pain although now has been exacerbated. Denies any urinary retention with overflow incontinence or bowel incontinence. Denies saddle anesthesia. Reports that he went exacerbated with repair. - Related Data Home Medications Medication Instructions Recorded Confirmed FLUoxetine HCL [PROzac] 20 mg PO DAILY 03/08/15 03/02/19 Atorvastatin [Lipitor] 20 mg PO HS 08/11/18 03/02/19 Diclofenac Sodium [Voltaren] 75 mg PO BID 08/11/18 03/02/19 metFORMIN HCL 1,000 mg PO BID 08/11/18 03/02/19 sitaGLIPtin [Januvia] 100 mg PO DAILY 08/11/18 03/02/19 Previous Rx's Medication Instructions Recorded Albuterol Inhaler (Mhu) [Ventolin 2 puff INHALATION RT-Q6H PRN #1 08/17/18 Hfa Inhaler] inhaler Budesonide [Pulmicort] 0.5 mg INHALATION BID #60 neb 08/17/18 Ipratropium-Albuterol Nebulize 3 ml INHALATION QID #120 neb 08/17/18 [Duoneb 0.5 mg-3 mg/3 ml Soln] Levofloxacin [Levaquin] 500 mg PO DAILY #8 tab 08/17/18 predniSONE 10 mg PO TID #30 tab 08/17/18 metroNIDAZOLE [Flagyl] 500 mg PO BID 7 Days #14 tab 03/09/19 Allergies Allergy/AdvReac Type Severity Reaction Status Date / Time erythromycin base Allergy Severe Rash/Hives/ Verified 06/22/20 11:49 [Erythromycin Base] SOB amoxicillin [Amoxicillin] Allergy Rash/Hives Verified 06/22/20 11:49 bupropion HCl Allergy Swelling Verified 06/22/20 11:49 [From Wellbutrin] cephalexin monohydrate Allergy Rash/Hives, Verified 06/22/20 11:49 [From Keflex] SOME SHORTNESS OF BREATH ONE A DAY MULTIVITAMIN Allergy Itching/HIV Uncoded 06/22/20 11:49 ES Review of Systems ROS Statement: Those systems with pertinent positive or pertinent negative responses have been documented in the HPI. ROS Other: All systems not noted in ROS Statement are negative. Past Medical History Past Medical History: Asthma, COPD, Diabetes Mellitus, Fibromyalgia, Hyperlipidemia, Osteoarthritis (OA) Additional Past Medical History / Comment(s): Morbid obesity, Degenerative Disc Disease, diabetes type II. Past TACTICAL INTELLIGENCE OFFICER history: gonorrhea many years ago. She has no other history of STDs. History of Any Multi-Drug Resistant Organisms: None Reported Past Surgical History: Section, Orthopedic Surgery, Tonsillectomy, Tubal Ligation Additional Past Surgical History / Comment(s): tumor biopsy from neck (thyroid area), ganglion cyst removed from left footpain, exp. laparoscopy Past Anesthesia/Blood Transfusion Reactions: Previous Problems w/ Anesthesia Additional Past Anesthesia/Blood Transfusion Reaction / Comment(s): States "could not catch her breath when she awoke" from general anesthesia Past Psychological History: Anxiety, Bipolar, Depression Smoking Status: Current every day smoker Past Alcohol Use History: None Reported Past Drug Use History: None Reported - Past Family History Mother Family Medical History: Cancer Additional Family Medical History / Comment(s): Lung cancer Brother(s) Family Medical History: Diabetes Mellitus, Deep Vein Thrombosis (DVT) General Exam Limitations: physical limitation General appearance: alert, in no apparent distress, obese Head exam: Present: atraumatic, normocephalic, normal inspection Eye exam: Present: normal appearance, PERRL, EOMI Pupils: Present: normal accommodation ENT exam: Present: normal exam, normal oropharynx, mucous membranes moist Neck exam: Present: normal inspection, full ROM. Absent: tenderness Respiratory exam: Present: normal lung sounds bilaterally. Absent: respiratory distress, wheezes, rales Cardiovascular Exam: Present: regular rate, normal rhythm, normal heart sounds GI/Abdominal exam: Present: soft. Absent: distended, tenderness, guarding Extremities exam: Present: normal inspection, full ROM, tenderness (Left hip tenderness) Back exam: Present: normal inspection, full ROM, tenderness, paraspinal tenderness Neurological exam: Present: alert, oriented X3 Psychiatric exam: Present: normal affect, normal mood Skin exam: Present: warm, dry, intact, normal color Course Vital Signs 06/22/20 06/22/20 11:44 14:01 Temperature 99.8 F H 99 F Pulse Rate 100 95 Respiratory 18 18 Rate Blood Pressure 111/79 110/78 O2 Sat by Pulse 95 96 Oximetry Medical Decision Making - Medical Decision Making Patient is a 49-year-old morbidly obese female with history of chronic back pain presenting to emergency Department with a chief complaint of back pain. On exam she does appear to have paraspinal tenderness in the left lumbosacral region with some radiation along the anterior lateral aspect of the left lower extended. Patient has developed increased pain after she went to physical therapy prior to the onset of symptoms. Patient was given analgesia in the emergency department. She was also given a Lidoderm patch. Reevaluation patient reports improved his symptoms. No cauda equina. No red flags. Patient ready sees an adult specialist and she set to see him in the next few days. Strict return parameters were thoroughly discussed with patient understanding and agreeable . Case discussed physician. Disposition Clinical Impression: Strain of lumbar region, Mechanical back pain Disposition: HOME SELF-CARE Condition: Stable Instructions (If sedation given, give patient instructions): Acute Low Back Pain (ED) Additional Instructions: Take prescribed medication as directed. Follow-up with your neurologist. Return to emergency department if symptoms worsen. Is patient prescribed a controlled substance at d/c from ED?: No Referrals: Yulia Landon MD [Primary Care Provider] - 1-2 days Time of Disposition: 13:51
[2020-06-22] MEDS ORDERED: ACET/COD 300 MG/30 MG STARTER PACK 6 TAB BTL PO STA (13:42)
[2020-06-22 14:02] VITALS: BP 110/78; PULSE 95; TEMP 99
== END 2020-06-22 14:01 | disposition home or self-care (01) ==
LOC: EC 11:43
DX: S39.012A Strain of muscle, fascia and tendon of lower back, initial encounter (principal); F41.9 Anxiety disorder, unspecified; F31.9 Bipolar disorder, unspecified; E11.9 Type 2 diabetes mellitus without complications; E78.5 Hyperlipidemia, unspecified; E66.01 Morbid (severe) obesity due to excess calories; Z68.43 Body mass index [BMI] 50.0-59.9, adult; F17.200 Nicotine dependence, unspecified, uncomplicated; Z79.84 Long term (current) use of oral hypoglycemic drugs; Z79.899 Other long term (current) drug therapy; Z88.0 Allergy status to penicillin; Z88.1 Allergy status to other antibiotic agents; Z88.8 Allergy status to other drugs, medicaments and biological substances; X58.XXXA Exposure to other specified factors, initial encounter
CPT/HCPCS: 99283; 96372; J1170

== ENCOUNTER → 2021-09-20 | Day surgery (SDC) | payer OTHER ==
[2021-09-18 15:02] VITALS: BMI 55.7
[~2021-09-20] MED LIST: GLYCOPYRROLATE 0.2 MG/ML 2 ML VIAL ONE; KETAMINE 10 MG/ML 20 ML VIAL ONE; LACTATED RINGERS 1,000 ML IV SCH; LIDOCAINE 1% (10MG/ML) FOR IV START INTRADERMA ONE; PROPOFOL 10 MG/ML 20 ML VIAL IV ONE
[2021-09-20 08:03] VITALS: TEMP 98.2
[2021-09-20 08:14] LABS: Glucose,Whole Blood 132 mg/dL (75-99)
--- NOTE | 2021-09-20 08:30 | P.GSHP ---
History of Present Illness H&P Date: 09/20/21 Chief Complaint: GI bleed This is a 50-year-old female who presents today for colonoscopy. She is fecal occult blood positive Past Medical History Past Medical History: COPD, Diabetes Mellitus, Fibromyalgia, Hyperlipidemia, Osteoarthritis (OA), Pneumonia, Sleep Apnea/CPAP/BIPAP Additional Past Medical History / Comment(s): states "has infection around belly button"Degenerative Disc Disease, gonorrhea many years ago. hx heart murmer, blood in stool, dry skin patches, uses cane or walker due to athritis in mult joints,uses cpap History of Any Multi-Drug Resistant Organisms: None Reported Past Surgical History: Section, Orthopedic Surgery, Tonsillectomy, Tubal Ligation Additional Past Surgical History / Comment(s): tumor biopsy from neck (thyroid area), ganglion cyst removed from left foot, exp. laparoscopy, COLONOSCOPY Past Anesthesia/Blood Transfusion Reactions: Previous Problems w/ Anesthesia Additional Past Anesthesia/Blood Transfusion Reaction / Comment(s): States "could not catch her breath when she awoke" from general anesthesia, states was in a panic Smoking Status: Current every day smoker - Past Family History Mother Family Medical History: Cancer Additional Family Medical History / Comment(s): Lung cancer Brother(s) Family Medical History: Deep Vein Thrombosis (DVT) Medications and Allergies Home Medications Medication Instructions Recorded Confirmed Type FLUoxetine HCL [PROzac] 20 mg PO QAM 03/08/15 09/18/21 History metFORMIN HCL [Glucophage] 1,000 mg PO BID 08/11/18 09/18/21 History Albuterol Inhaler (Mhu) [Ventolin 2 puff INHALATION RT-Q6H PRN #1 08/17/18 09/20/21 Rx Hfa Inhaler] inhaler Acetaminophen [Tylenol Arthritis] 650 mg PO TID PRN 04/18/21 09/20/21 History Gabapentin 600 mg PO BID 04/18/21 09/18/21 History Calcium Carbonate/Vitamin D3 1 each PO DAILY 08/14/21 09/20/21 History [Calcium 600-Vit D3 20 Mcg (800 Iu)] HYDROcodone/APAP 7.5-325MG [[place] 1 tab PO DAILY 08/14/21 09/20/21 History 7.5-325] Rosuvastatin Calcium [Crestor] 5 mg PO HS 08/14/21 09/18/21 History Semaglutide [Ozempic] 1 mg SQ FR 08/14/21 09/20/21 History Allergies Allergy/AdvReac Type Severity Reaction Status Date / Time erythromycin base Allergy Severe Rash/Hives/ Verified 09/18/21 14:54 [Erythromycin Base] SOB amoxicillin [Amoxicillin] Allergy Rash/Hives Verified 09/18/21 14:54 bupropion HCl Allergy Swelling Verified 09/18/21 14:54 [From Wellbutrin] cephalexin monohydrate Allergy Rash/Hives, Verified 09/18/21 14:54 [From Keflex] SOME SHORTNESS OF BREATH ONE A DAY MULTIVITAMIN Allergy Itching/HIV Uncoded 09/18/21 14:54 ES Surgical - Exam Vital Signs Temp Pulse Resp BP Pulse Ox 98.2 F 84 18 136/63 95 09/20/21 08:01 09/20/21 08:01 09/20/21 08:01 09/20/21 08:01 09/20/21 08:01 - General well developed, well nourished, no distress - Eyes PERRL - ENT normal pinna - Neck no masses - Respiratory normal expansion - Cardiovascular Rhythm: regular - Abdomen Abdomen: soft, non tender Results - Labs Abnormal Lab Results - Last 24 Hours (Table) 09/20/21 Range/Units 08:07 POC Glucose (mg/dL) 132 H (75-99) mg/dL Assessment and Plan Assessment: GI bleed. We'll perform colonoscopy.
--- NOTE | 2021-09-20 08:53 | P.OP ---
Date of Procedure: 09/20/21 Preoperative Diagnosis: GI bleed Postoperative Diagnosis: Colon polyps Procedure(s) Performed: Colonoscopy Anesthesia: MAC Surgeon: Mello Hanson Pathology: other (Cecal polyp, sigmoid colon polyp) Condition: stable Disposition: PACU Description of Procedure: The patient's placed on the endoscopy table in the lateral position. She received IV sedation. Digital rectal exam was performed which revealed no ebonized. The flexible colonoscope was then placed patient anus passed throughout the entire colon. The ileocecal valve was visualized. The cecum appeared normal. In the right colon there was a polyp seen this removed with the cold forcep. Fowler ascending colon and transverse colon appeared normal. In the descending and sigmoid colon was a few scattered diverticula. In the sigmoid colon another small polyp was removed this removed with the cold forcep. Scope was brought back the rectum this appeared normal. Scope withdrawn for patient.. There is no evidence of GI bleed. Resume the patient may have bled from diverticulosis or her colon polyp
[2021-09-20 09:06] VITALS: RESP 16
[2021-09-20 09:17] VITALS: BP 118/69; PULSE 82
== END ==
LOC: ORWHC2ENDO 07:22
PROVIDERS: ATTEND Surgery
DX: K92.2 Gastrointestinal hemorrhage, unspecified (principal); D12.0 Benign neoplasm of cecum; D12.3 Benign neoplasm of transverse colon; M19.90 Unspecified osteoarthritis, unspecified site; E11.9 Type 2 diabetes mellitus without complications; E78.5 Hyperlipidemia, unspecified; F17.200 Nicotine dependence, unspecified, uncomplicated; G47.30 Sleep apnea, unspecified; J44.9 Chronic obstructive pulmonary disease, unspecified; M79.7 Fibromyalgia; Z79.84 Long term (current) use of oral hypoglycemic drugs; Z80.1 Family history of malignant neoplasm of trachea, bronchus and lung; Z88.0 Allergy status to penicillin; Z88.1 Allergy status to other antibiotic agents
CPT/HCPCS: 45380; 81025; 88305; J2704

== ENCOUNTER → 2022-04-09 | Outpatient (CLI) | payer OTHER ==
--- NOTE | 2022-04-09 13:00 | US ---
EXAMINATION TYPE: US thyroid st tissue head/neck DATE OF EXAM: 04/09/2022 COMPARISON: NONE CLINICAL HISTORY: 51-year-old female E01.0 THYROMEGALY. TECHNIQUE: Multiple sonographic images of the thyroid gland are obtained. FINDINGS: GLAND SIZE: Right Lobe: 7.6 x 4.0 x 5.7 cm Overall Parenchyma: heterogenous Left Lobe: 4.7 x 2.5 x 1.9 cm Overall Parenchyma: heterogeneous Isthmus Thickness: unable to accurately measure NODULES RIGHT: # of nodules measured on right: 1 1. 5.5 X 3.7 x 5.9 cm, mid mid, solid or almost completely solid, isoechoic TR 3 nodule, which is w ider than tall, with smooth margins, without echogenic foci. Prior size: no prior here LEFT: # of nodules measured on left: 2 1. 1.7 X 1.5 x 1.8 cm, mid mid, solid or almost completely solid, isoechoic TR 3 nodule, which is w ider than tall, with smooth margins, without echogenic foci. Prior size: no prior 2. 1.5 X 1.2 x 1.4 cm, mid mid, solid or almost completely solid, hypoechoic TR 4 nodule, which is wider than tall, with smooth margins, without echogenic foci. Prior size: no prior ISTHMUS: # of nodules measured in the isthmus: 0 Bilateral neck scanned, no evidence of lymphadenopathy. IMPRESSION: 1. Findings suggest multinodular goiter. 2. Dominant solid nodule measuring 5.9 cm on the right. FNA recommended. 3. 1.5 cm TR4 nodule on the left for which FNA can be performed. 4. The 1.8 cm TR3 nodule at the left midpole should be followed.
== END | disposition home or self-care (01) ==
LOC: RADUSWWP 10:52
PROVIDERS: ATTEND Family Medicine
DX: E04.2 Nontoxic multinodular goiter (principal)
CPT/HCPCS: 76536

== ENCOUNTER → 2022-07-30 | Outpatient (CLI) | payer OTHER ==
--- NOTE | 2022-07-30 09:04 | US ---
EXAMINATION TYPE: US pelvic complete DATE OF EXAM: 07/30/2022 COMPARISON: NONE CLINICAL HISTORY: R10.2 PELVIC PAIN. Patient states she has a broken tailbone and when she went in for a procedure they saw a fluid collec tion. TECHNIQUE: Transabdominal (TA). Date of LMP: 1 year prior EXAM MEASUREMENTS: Uterus: 11.1 x 4.5 x 6.2 cm Endometrial Stripe: not visualized Right Ovary: not visualized Left Ovary: not visualized Morbidly obese patient with broken tailbone, very limited visualization abdominally. Patient refused transvaginal. 1. Uterus: limited visualization 2. Endometrium: unable to visualize due to obesity 3. Right Ovary: Obscured by overlying bowel gas and obesity 4. Left Ovary: Obscured by overlying bowel gas and obesity 5. Bilateral Adnexa: wnl 6. Posterior cul-de-sac: wnl IMPRESSION: Limited exam secondary to patient body habitus. Nonvisualization of the ovaries. No obvious acute pro cess.
== END | disposition home or self-care (01) ==
LOC: RADUSWWP 08:19
PROVIDERS: ATTEND Physical Medicine & Rehabilitation Pain Medicine
DX: R10.2 Pelvic and perineal pain (principal)
CPT/HCPCS: 76856

== ENCOUNTER 2022-09-26 10:07 | Emergency (ER) | payer OTHER ==
[2022-09-26 10:30] VITALS: TEMP 98.5
[2022-09-26] MEDS ORDERED: SODIUM CHLORIDE 0.9% 500 ML 500 ML IV STA (10:45)
[2022-09-26] MEDS ORDERED: KETOROLAC 15 MG/ML 1 ML VIAL IVP STA (10:45)
--- NOTE | 2022-09-26 10:48 | ED ---
SOB HPI - General Chief Complaint: Shortness of Breath Stated Complaint: Back pain, lung pain Time Seen by Provider: 09/26/22 10:32 Source: patient, RN notes reviewed Mode of arrival: wheelchair Limitations: no limitations - History of Present Illness Initial Comments: Patient is a 51 year old female presenting to the ER with a chief complaint of shortness of breath/ lung pain. Patient has COPD. Patient is worried she has a blood clot in her lungs. She states this lung pain started a couple of weeks ago. She reports pain is worse with coughing and deep inspirations. 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 Her PCP prescribed her antibiotics with no relief in symptoms. She has been using a heating pad with some relief. Denies fevers, chills, nightsweats, or known recent sick contacts. - Related Data Home Medications Medication Instructions Recorded Confirmed FLUoxetine HCL [PROzac] 20 mg PO QAM 03/08/15 09/18/21 metFORMIN HCL [Glucophage] 1,000 mg PO BID 08/11/18 09/18/21 Acetaminophen [Tylenol Arthritis] 650 mg PO TID PRN 04/18/21 09/20/21 Gabapentin 600 mg PO BID 04/18/21 09/18/21 Calcium Carbonate/Vitamin D3 1 each PO DAILY 08/14/21 09/20/21 [Calcium 600-Vit D3 20 Mcg (800 Iu)] HYDROcodone/APAP 7.5-325MG [[place] 1 tab PO DAILY 08/14/21 09/20/21 7.5-325] Rosuvastatin Calcium [Crestor] 5 mg PO HS 08/14/21 09/18/21 Semaglutide [Ozempic] 1 mg SQ FR 08/14/21 09/20/21 Previous Rx's Medication Instructions Recorded Albuterol Inhaler [Ventolin Hfa 2 puff INHALATION RT-Q6H PRN #1 08/17/18 Inhaler] inhaler Albuterol Nebulized [Ventolin 2.5 mg INHALATION Q4H PRN #150 ml 09/26/22 Nebulized] Levofloxacin [Levaquin] 500 mg PO DAILY #7 tab 09/26/22 predniSONE 50 mg PO DAILY #5 tab 09/26/22 Allergies Allergy/AdvReac Type Severity Reaction Status Date / Time erythromycin base Allergy Severe Rash/Hives/ Verified 09/26/22 10:27 [Erythromycin Base] SOB amoxicillin [Amoxicillin] Allergy Rash/Hives Verified 09/26/22 10:27 bupropion HCl Allergy Swelling Verified 09/26/22 10:27 [From Wellbutrin] cephalexin monohydrate Allergy Rash/Hives, Verified 09/26/22 10:27 [From Keflex] SOME SHORTNESS OF BREATH ONE A DAY MULTIVITAMIN Allergy Itching/HIV Uncoded 09/26/22 10:27 ES Review of Systems ROS Statement: Those systems with pertinent positive or pertinent negative responses have been documented in the HPI. ROS Other: All systems not noted in ROS Statement are negative. Past Medical History Past Medical History: COPD, Diabetes Mellitus, Fibromyalgia, Hyperlipidemia, Osteoarthritis (OA), Pneumonia, Sleep Apnea/CPAP/BIPAP Additional Past Medical History / Comment(s): states "has infection around belly button"Degenerative Disc Disease, gonorrhea many years ago. hx heart murmer, blood in stool, dry skin patches, uses cane or walker due to athritis in mult joints,uses cpap History of Any Multi-Drug Resistant Organisms: None Reported Past Surgical History: Section, Orthopedic Surgery, Tonsillectomy, Tubal Ligation Additional Past Surgical History / Comment(s): tumor biopsy from neck (thyroid area), ganglion cyst removed from left foot, exp. laparoscopy, COLONOSCOPY Past Anesthesia/Blood Transfusion Reactions: Previous Problems w/ Anesthesia Additional Past Anesthesia/Blood Transfusion Reaction / Comment(s): States "could not catch her breath when she awoke" from general anesthesia, states was in a panic Past Psychological History: Anxiety, Bipolar, Depression Smoking Status: Current every day smoker - Past Family History Mother Family Medical History: Cancer Additional Family Medical History / Comment(s): Lung cancer Brother(s) Family Medical History: Deep Vein Thrombosis (DVT) General Exam Limitations: no limitations General appearance: alert, in no apparent distress Head exam: Present: atraumatic, normocephalic, normal inspection ENT exam: Present: normal exam, mucous membranes moist Neck exam: Present: normal inspection. Absent: tenderness, meningismus, lymphadenopathy Respiratory exam: Present: wheezes, rales (left ) Cardiovascular Exam: Present: regular rate GI/Abdominal exam: Present: soft, normal bowel sounds. Absent: distended, tenderness, guarding, rebound, rigid Extremities exam: Present: normal inspection, full ROM, normal capillary refill. Absent: tenderness, pedal edema, joint swelling, calf tenderness Back exam: Present: normal inspection Neurological exam: Present: alert, oriented X3, CN II-XII intact Psychiatric exam: Present: normal affect, normal mood Skin exam: Present: warm, dry, intact, normal color. Absent: rash Course Vital Signs 09/26/22 09/26/22 10:27 11:20 Temperature 98.5 F Pulse Rate 79 73 Respiratory 16 20 Rate Blood Pressure 135/79 120/69 O2 Sat by Pulse 96 98 Oximetry Medical Decision Making - Medical Decision Making 51-year-old female presented for lung, rib pain. Patient is concerned about possible PE d-dimer is negative. Patient does have underlying COPD continues to smoke. Patient x-ray read shows evidence of acute bronchitis. Patient stopped her [place] because she does causing the symptoms. Patient denies any continue taking [place] for pain control be given steroids, antibiotics she has multiple ALLERGIES will be given Levaquin given that she has ALLERGY to amoxicillin, erythromycin. - Lab Data Result diagrams: 09/26/22 10:58 09/26/22 10:58 Lab Results 09/26/22 09/26/22 09/26/22 Range/Units 10:58 10:58 10:58 WBC 11.4 H (3.8-10.6) k/uL RBC 5.09 (3.80-5.40) m/uL Hgb 15.5 (11.4-16.0) gm/dL Hct 45.8 (34.0-46.0) % MCV 89.9 (80.0-100.0) fL MCH 30.4 (25.0-35.0) pg MCHC 33.8 (31.0-37.0) g/dL RDW 12.4 (11.5-15.5) % Plt Count 211 (150-450) k/uL MPV 8.8 Neutrophils % 50 % Lymphocytes % 41 % Monocytes % 5 % Eosinophils % 2 % Basophils % 1 % Neutrophils # 5.7 (1.3-7.7) k/uL Lymphocytes # 4.6 (1.0-4.8) k/uL Monocytes # 0.5 (0-1.0) k/uL Eosinophils # 0.2 (0-0.7) k/uL Basophils # 0.1 (0-0.2) k/uL PT 10.6 (9.0-12.0) sec INR 1.0 (<1.2) APTT 24.5 (22.0-30.0) sec D-Dimer 0.44 (<0.60) mg/L FEU Sodium 138 (137-145) mmol/L Potassium 4.2 (3.5-5.1) mmol/L Chloride 104 (98-107) mmol/L Carbon Dioxide 26 (22-30) mmol/L Anion Gap 8 mmol/L BUN 8 (7-17) mg/dL Creatinine 0.51 L (0.52-1.04) mg/dL Est GFR (CKD-EPI)AfAm >90 (>60 ml/min/1.73 sqM) Est GFR (CKD-EPI)NonAf >90 (>60 ml/min/1.73 sqM) Glucose 109 H (74-99) mg/dL Plasma Lactic Acid Tadeo (0.7-2.0) mmol/L Calcium 9.6 (8.4-10.2) mg/dL Magnesium 1.9 (1.6-2.3) mg/dL Total Bilirubin 0.4 (0.2-1.3) mg/dL AST 40 H (14-36) U/L ALT 29 (4-34) U/L Alkaline Phosphatase 78 (38-126) U/L Troponin I (0.000-0.034) ng/mL NT-Pro-B Natriuret Pep pg/mL Total Protein 7.0 (6.3-8.2) g/dL Albumin 4.4 (3.5-5.0) g/dL 09/26/22 09/26/22 09/26/22 Range/Units 10:58 10:58 10:58 WBC (3.8-10.6) k/uL RBC (3.80-5.40) m/uL Hgb (11.4-16.0) gm/dL Hct (34.0-46.0) % MCV (80.0-100.0) fL MCH (25.0-35.0) pg MCHC (31.0-37.0) g/dL RDW (11.5-15.5) % Plt Count (150-450) k/uL MPV Neutrophils % % Lymphocytes % % Monocytes % % Eosinophils % % Basophils % % Neutrophils # (1.3-7.7) k/uL Lymphocytes # (1.0-4.8) k/uL Monocytes # (0-1.0) k/uL Eosinophils # (0-0.7) k/uL Basophils # (0-0.2) k/uL PT (9.0-12.0) sec INR (<1.2) APTT (22.0-30.0) sec D-Dimer (<0.60) mg/L FEU Sodium (137-145) mmol/L Potassium (3.5-5.1) mmol/L Chloride (98-107) mmol/L Carbon Dioxide (22-30) mmol/L Anion Gap mmol/L BUN (7-17) mg/dL Creatinine (0.52-1.04) mg/dL Est GFR (CKD-EPI)AfAm (>60 ml/min/1.73 sqM) Est GFR (CKD-EPI)NonAf (>60 ml/min/1.73 sqM) Glucose (74-99) mg/dL Plasma Lactic Acid Tadeo 2.5 H* (0.7-2.0) mmol/L Calcium (8.4-10.2) mg/dL Magnesium (1.6-2.3) mg/dL Total Bilirubin (0.2-1.3) mg/dL AST (14-36) U/L ALT (4-34) U/L Alkaline Phosphatase (38-126) U/L Troponin I <0.012 (0.000-0.034) ng/mL NT-Pro-B Natriuret Pep 25 pg/mL Total Protein (6.3-8.2) g/dL Albumin (3.5-5.0) g/dL Disposition Clinical Impression: Acute exacerbation of chronic obstructive airways disease, Pleurisy Disposition: HOME SELF-CARE Condition: Stable Instructions (If sedation given, give patient instructions): Acute Bronchitis (ED) Additional Instructions: Please return to the Emergency Department if symptoms worsen or any other concerns. Prescriptions: Levofloxacin [Levaquin] 500 mg PO DAILY #7 tab predniSONE 50 mg PO DAILY #5 tab Albuterol Nebulized [Ventolin Nebulized] 2.5 mg INHALATION Q4H PRN #150 ml PRN Reason: difficulty in breathing Is patient prescribed a controlled substance at d/c from ED?: No Referrals: Yulia Landon MD [Primary Care Provider] - 1-2 days Time of Disposition: 11:30
[2022-09-26 11:12] LABS: Basophils # (A) 0.1 k/uL (0-0.2); Basophils % (A) 1 %; Eosinophils # (A) 0.2 k/uL (0-0.7); Eosinophils % (A) 2 %; HCT 45.8 % (34.0-46.0); HGB 15.5 gm/dL (11.4-16.0); Lymphocytes # (A) 4.6 k/uL (1.0-4.8); Lymphocytes % (A) 41 %; MCH 30.4 pg (25.0-35.0); MCHC 33.8 g/dL (31.0-37.0); MCV 89.9 fL (80.0-100.0); Mean Platelet Volume 8.8; Monocytes # (A) 0.5 k/uL (0-1.0); Monocytes % (A) 5 %; Neutrophils # (A) 5.7 k/uL (1.3-7.7); Neutrophils % (A) 50 %; Platelet Count 211 k/uL (150-450); RBC 5.09 m/uL (3.80-5.40); RDW 12.4 % (11.5-15.5); WBC 11.4 k/uL (3.8-10.6)
[2022-09-26 11:22] LABS: ALT 29 U/L (4-34); AST 40 U/L (14-36); African American GFR (CKD) >90 (>60 ml/min/1.73 sqM); Albumin 4.4 g/dL (3.5-5.0); Alkaline Phosphatase 78 U/L (38-126); Anion Gap 8 mmol/L; Blood Urea Nitrogen 8 mg/dL (7-17); Calcium 9.6 mg/dL (8.4-10.2); Carbon Dioxide 26 mmol/L (22-30); Chloride 104 mmol/L (98-107); Glucose 109 mg/dL (74-99); Magnesium 1.9 mg/dL (1.6-2.3); Non-African American GFR(CKD) >90 (>60 ml/min/1.73 sqM); Potassium 4.2 mmol/L (3.5-5.1); Sodium 138 mmol/L (137-145); Total Bilirubin 0.4 mg/dL (0.2-1.3)
[2022-09-26 11:28] LABS: Partial Thromboplastin Time 24.5 sec (22.0-30.0); Prothrombin Time 10.6 sec (9.0-12.0)
--- NOTE | 2022-09-26 11:47 | XR ---
EXAMINATION TYPE: XR chest 2V DATE OF EXAM: 09/26/2022 11:42 AM COMPARISON: Chest radiographs from 08/14/2018. TECHNIQUE: XR chest 2V Frontal and lateral views of the chest. CLINICAL INDICATION:Female, 51 years old with history of difficulty breathing; FINDINGS: Lungs/Pleura: Bronchial wall thickening. No Focal consolidation, pneumothorax or pleural effusion. Pulmonary vascularity: Unremarkable. Heart/mediastinum: Cardiomediastinal silhouette is unremarkable. Musculoskeletal: No acute osseous pathology. IMPRESSION: Bronchial wall thickening. Correlate for bronchitis or reactive airways disease.
[2022-09-26 12:13] VITALS: BP 130/86; PULSE 86; RESP 18
== END 2022-09-26 12:18 | disposition home or self-care (01) ==
LOC: EC 10:07
DX: J44.1 Chronic obstructive pulmonary disease with (acute) exacerbation (principal); R09.1 Pleurisy; F17.200 Nicotine dependence, unspecified, uncomplicated; F32.A Depression, unspecified; F41.9 Anxiety disorder, unspecified; J44.9 Chronic obstructive pulmonary disease, unspecified; E11.9 Type 2 diabetes mellitus without complications; Z79.84 Long term (current) use of oral hypoglycemic drugs
CPT/HCPCS: 36415; 93005; 85379; 83880; 80053; 83605; 83735; 84484; 85025; 85610; 85730; 71046; 99285; 96374; J1885

== ENCOUNTER → 2023-08-21 | Outpatient (CLI) | payer OTHER ==
--- NOTE | 2023-08-21 13:16 | XR ---
EXAMINATION TYPE: XR chest 2V DATE OF EXAM: 08/21/2023 COMPARISON: 09/26/2022 HISTORY: Chest pain TECHNIQUE: Frontal and lateral views of the chest are obtained. FINDINGS: There is no focal air space opacity. No evidence for pneumothorax. No pleural effusion. The cardiac silhouette size is within normal limits. The osseous structures are grossly intact. IMPRESSION: 1. No acute cardiopulmonary process.
== END | disposition home or self-care (01) ==
LOC: RADXRMAIN 12:38
PROVIDERS: ATTEND Family Medicine
DX: R05.9 Cough, unspecified (principal); R07.9 Chest pain, unspecified
CPT/HCPCS: 71046

== ENCOUNTER → 2023-09-23 | Outpatient (CLI) | payer OTHER ==
--- NOTE | 2023-09-25 07:49 | MM ---
Reason for Exam: Screening (asymptomatic). Last mammogram was performed 5 year(s) and 3 month(s) ago. Patient History: Menarche at age 12. First Full-Term at age 22. Postmenopausal. Risk Values: [place] 5 year model risk: 0.9%. NCI Lifetime model risk: 7.8%. Prior Study Comparison: 07/12/2014 Bilateral Screening Mammogram, [facility]. 07/16/2016 Bilateral Screening Mammogram, [facility]. 07/02/2018 Bilateral Screening Mammogram, [facility]. Tissue Density: There are scattered fibroglandular densities. Findings: Analyzed By CAD. Pattern appears symmetrical and stable. No significant interval change is evident. A benign round calcifications within the right breast. No suspicious groups of microcalcifications, spiculated or lobular masses, architectural distortion or other secondary signs of malignancy are mammographically apparent. Overall Assessment: Benign, BI-RAD 2 Management: Screening Mammogram of both breasts in 1 year. A negative mammogram report should not preclude additional follow up of suspicious palpable abnormalities. Patient should continue monthly self breast exam. A clinical breast exam by your physician is recommended on an annual basis and results should be correlated with mammographic findings. Electronically signed and approved by: Tomas Cr D.O. Radiologis
== END | disposition home or self-care (01) ==
LOC: RADMAMWWP 08:13
PROVIDERS: ATTEND Family Medicine
DX: Z12.31 Encounter for screening mammogram for malignant neoplasm of breast (principal); Z78.0 Asymptomatic menopausal state
CPT/HCPCS: 77063; 77067

== ENCOUNTER → 2024-01-22 | Outpatient (CLI) | payer OTHER ==
--- NOTE | 2024-01-22 14:52 | P.HPBAR ---
Bariatric H&P - History & Physicial H&P Date: 01/22/24 History & Physicial: Visit/CC: Initial Patient initial contact: Initial weight: 158.757 kg Initial weight in pounds: 350.00 Height: 5 ft 8 in Initial BMI: 53.1 Last weight: Current weight: 158.757 kg Current weight in pounds: 350.00 Current BMI: 53.1 [place] body weight (based on NIH guidelines): 63.503 kg Excess body weight loss: 0.0% The patient is a 53 year-old F who presents for Bariatric Assessment. Patient comes in today to discuss weight loss surgery. Patient has been discussing and considering weight loss surgery for many years. She is interested in sleeve gastrectomy. Her sister had gastric bypass many years ago and had a variety of different complications. The patient's highest weight was 420 she believes. Now she is down in the low 300 range. BMI today 57. Patient is using a wheelchair much of the time. She does ambulate in her house. Most of her issues are related to hip and knee pain. Patient suffers from diabetes, COPD, hypercholesterolemia, arthritis, mild GERD. Patient smokes 1 pack/day. No history of DVT or dysphagia. Surgical history includes and laparoscopy. Review of Systems The patient denies any acute changes in vision or hearing, no dysphagia or odynophagia, no chest pain or shortness of breath, no dysuria or hematuria, no headache, no runny nose, no rectal bleeding or melena, no unexplained weight loss Past Medical History Past Medical History: COPD, Diabetes Mellitus, Fibromyalgia, Hyperlipidemia, Osteoarthritis (OA), Pneumonia, Sleep Apnea/CPAP/BIPAP Additional Past Medical History / Comment(s): states "has infection around belly button"Degenerative Disc Disease, gonorrhea many years ago. hx heart murmer, blood in stool, dry skin patches, uses cane or walker due to athritis in mult joints,uses cpap History of Any Multi-Drug Resistant Organisms: None Reported Past Surgical History: Section, Orthopedic Surgery, Tonsillectomy, Tubal Ligation Additional Past Surgical History / Comment(s): tumor biopsy from neck (thyroid area), ganglion cyst removed from left foot, exp. laparoscopy, COLONOSCOPY Past Anesthesia/Blood Transfusion Reactions: Previous Problems w/ Anesthesia Additional Past Anesthesia/Blood Transfusion Reaction / Comm: States "could not catch her breath when she awoke" from general anesthesia, states was in a panic Smoking Status: Current every day smoker - Past Family History Mother Family Medical History: Cancer Additional Family Medical History / Comment(s): Lung cancer Brother(s) Family Medical History: Deep Vein Thrombosis (DVT) Surgical - Exam Vital Signs Temp Pulse Resp BP 98.1 F 90 16 166/95 01/22/24 14:40 01/22/24 14:40 01/22/24 14:40 01/22/24 14:40 Physical exam: General: Well-developed, well-nourished HEENT: Normocephalic, sclerae nonicteric Abdomen: Nontender, nondistended Extremities: No edema Neuro: Alert and oriented Bariatric Assessment & Plan (1) Morbid obesity with BMI of 50.0-59.9, adult Narrative/Plan: 53-year-old female here for evaluation regarding possible bariatric surgery. She is interested in sleeve gastrectomy. The risks, benefits, pre and postoperative processes, and average weight loss with the common bariatric procedures was discussed in detail. She remains interested. Patient understands that she will require smoking cessation prior to the surgery. Will plan upper endoscopy as preoperative workup. Will obtain medical clearance as well. The risks of bleeding, infection, stenosis, stricture, leak, abscess, fistula formation, peritonitis, poor weight loss, reflux, vomiting, conversion to an open procedure, aborting sleeve gastrectomy, NH, PE, DVT, and were discussed. The patient understands and wishes to proceed. Status: Acute Bariatric Checklist Checklist: Plan: Checklist: EGD: 1. Hiatal hernia: 2. H. Pylori: HgbA1c: Vitamin D: Smoking: Current every day smoker Primary care physician referral: Psychiatry clearance: Cardiology clearance: Sleep study: Diet journal: VTE risk score: VTE risk level: Rehab needs at discharge:
[2024-01-22 15:16] VITALS: BP 166/95; PULSE 90; RESP 16; TEMP 98.1; BMI 57.5
== END ==
LOC: BARWHC3 12:48
PROVIDERS: ATTEND Surgery
DX: E66.01 Morbid (severe) obesity due to excess calories (principal); J44.9 Chronic obstructive pulmonary disease, unspecified; E11.9 Type 2 diabetes mellitus without complications; E78.5 Hyperlipidemia, unspecified; M19.90 Unspecified osteoarthritis, unspecified site; G47.30 Sleep apnea, unspecified; M51.9 Unspecified thoracic, thoracolumbar and lumbosacral intervertebral disc disorder; M54.9 Dorsalgia, unspecified; F17.200 Nicotine dependence, unspecified, uncomplicated; Z68.43 Body mass index [BMI] 50.0-59.9, adult; Z98.51 Tubal ligation status; Z87.39 Personal history of other diseases of the musculoskeletal system and connective tissue; Z88.1 Allergy status to other antibiotic agents; Z88.0 Allergy status to penicillin; Z88.8 Allergy status to other drugs, medicaments and biological substances; Z79.85 Long-term (current) use of injectable non-insulin antidiabetic drugs; Z79.84 Long term (current) use of oral hypoglycemic drugs; Z79.899 Other long term (current) drug therapy
CPT/HCPCS: 99202

== ENCOUNTER → 2024-06-17 | Outpatient (CLI) | payer OTHER ==
--- NOTE | 2024-07-08 16:33 | CTL ---
Site ID [facility] Patient Serina Moses ID [id number] Age/Gender: 53Y, F Order # N/A Procedure CT LOW DOSE LUNG CANCER SCREENING Date 06/17/2024 11:52:00 AM EXAMINATION TYPE: CT Low Dose Lung DATE OF EXAM ORDERED: 07/01/2024 HISTORY: Personal history of nicotine dependence, 30 pack-year history, current smoker, history of [place] PD. Lung cancer screening CT DLP: 93.[address] CTDI: 2.40 mGy Automated exposure control for dose reduction was used. SCREENING VISIT: First screening visit COMPARISON: None TECHNIQUE: Low dose computed tomography scan was performed through the chest at 1 mm thick sections a nd reconstructed images in multiple planes at 1 mm and [address] DIAGNOSTIC QUALITY: Limited, but interpretable FINDINGS: Nodules: Right lower lobe 2.8 mm solid pulmonary nodule (series 4, image 275). LUNGS: COPD: Severity: Minimal Fibrosis: Severity: None Lymph nodes: None Other findings: None RIGHT PLEURAL SPACE: Effusion: None Calcification: None Thickening: None Pneumothorax: None LEFT PLEURAL SPACE: Effusion: None Calcification: None Thickening: None Pneumothorax: None HEART: Heart Size: Normal Coronary Calcification: None Pericardial Effusion: None OTHER FINDINGS: Upper abdomen: None Bony thorax: None Supraclavicular region: Enlarged thyroid gland. Other: None IMPRESSION: Limited examination due to patient's body habitus. 1. Right lower lobe 2.8 mm pulmonary nodule. 2. Thyromegaly. Consider further evaluation with thyroid ultrasound as clinically indicated. CT LUNG RAD AND CT CHEST RECOMMENDATION: Lung-Rad 2 Benign Appearance or Behavior: Continue annual sc reening with LDCT in 12 months. S Modifier (other clinically significant findings): S
== END | disposition home or self-care (01) ==
LOC: RADCTMAIN 11:42
PROVIDERS: ATTEND Family Medicine
DX: Z12.2 Encounter for screening for malignant neoplasm of respiratory organs (principal); F17.210 Nicotine dependence, cigarettes, uncomplicated; J44.9 Chronic obstructive pulmonary disease, unspecified; R91.1 Solitary pulmonary nodule; E03.9 Hypothyroidism, unspecified
CPT/HCPCS: 71271

== ENCOUNTER 2024-06-24 07:30 | Day surgery (SDC) | payer OTHER ==
[2024-06-24] MEDS ORDERED: LACTATED RINGERS 1,000 ML BAG ONE (07:53)
[2024-06-24] MEDS ORDERED: PROPOFOL 10 MG/ML 20 ML VIAL IV ONE (08:02)
[2024-06-24] MEDS ORDERED: LIDOCAINE 1% INJ 10MG/ML (20 ML MDV) ONE (08:02)
--- NOTE | 2024-07-02 15:54 | OP ---
OPERATIVE REPORT DATE OF SERVICE : 06/24/2024 PROCEDURE: Screening colonoscopy. PREOPERATIVE DIAGNOSIS: Screening colonoscopy. POSTOPERATIVE DIAGNOSIS: Colon polyps. ANESTHESIA: MAC. DESCRIPTION OF PROCEDURE: The patient was placed on the endoscopy table in the lateral position. She received IV sedation. Digital rectal exam was performed. This revealed no abnormalities. The Olympus colonoscope was then placed into the anus and passed throughout the entire colon. The ileocecal valve was visualized. The cecum appeared normal. In the right colon, there was a pedunculated polyp, which was removed with a snare. The remainder of the ascending colon and transverse colon appeared normal. In the left colon, there was also a small polyp seen and was removed with cold forceps. The sigmoid colon appeared normal. The scope was brought back to the rectum. This was normal. The scope was withdrawn from the patient. MMODL / IJN: [id number] /
== END 2024-06-24 08:51 ==
LOC: ORWHC2ENDO 07:30
PROVIDERS: ATTEND Surgery
DX: Z12.11 Encounter for screening for malignant neoplasm of colon (principal); D12.4 Benign neoplasm of descending colon; D12.2 Benign neoplasm of ascending colon; E78.5 Hyperlipidemia, unspecified; J44.9 Chronic obstructive pulmonary disease, unspecified; E66.9 Obesity, unspecified; F41.8 Other specified anxiety disorders; E11.22 Type 2 diabetes mellitus with diabetic chronic kidney disease; N18.9 Chronic kidney disease, unspecified; F17.210 Nicotine dependence, cigarettes, uncomplicated; Z79.84 Long term (current) use of oral hypoglycemic drugs; Z79.899 Other long term (current) drug therapy; Z79.85 Long-term (current) use of injectable non-insulin antidiabetic drugs
CPT/HCPCS: 45380; 45385; 88305

== ENCOUNTER 2024-09-23 19:44 | Inpatient (IN) | payer OTHER ==
--- NOTE | 2024-09-23 20:23 | ED ---
General Adult HPI - General Chief complaint: Fever Stated complaint: Abd pain Time Seen by Provider: 09/23/24 20:07 Source: patient Mode of arrival: wheelchair Limitations: no limitations - History of Present Illness Initial comments: Dictation was produced using [employer] dictation software. please excuse any grammatical, word or spelling errors. Chief Complaint: 53-year-old female with fever and abdominal pain History of Present Illness: 53-year-old female she recently cover from pneumonia. After she recovered from pneumonia showing got her flu vaccine. Patient states after that she started to feel ill which she thought was from the vaccine. Shortly after that she started to have some right lower quadrant abdominal pain. He states that and achy nonradiating. States that she does have some fever nausea and poor appetite. History of abdominal surgery The ROS documented in this emergency department record has been reviewed and confirmed by me. Those systems with pertinent positive or negative responses have been documented in the HPI. All other systems are other negative and/or noncontributory. - Related Data Home Medications Medication Instructions Recorded Confirmed FLUoxetine HCL [PROzac] 20 mg PO HS 03/08/15 09/23/24 metFORMIN HCL [Glucophage] 1,000 mg PO BID 08/11/18 09/23/24 Gabapentin 600 mg PO BID 04/18/21 09/23/24 HYDROcodone/APAP 7.5-325MG [[place] 1 tab PO TID 08/14/21 09/23/24 7.5-325] Semaglutide [Ozempic] 1 mg SQ FR 08/14/21 09/23/24 Albuterol Nebulized [Ventolin 2.5 mg INHALATION RT-QID PRN 09/23/24 09/23/24 Nebulized] Cyanocobalamin (Vitamin B-12) 1,000 mcg PO DAILY 09/23/24 09/23/24 [Vitamin B-12] Fluticasone/Umeclidin/Vilanter 1 puff INHALATION RT-DAILY 09/23/24 09/23/24 [Trelegy Ellipta 100-62.5-25] Ipratropium [place] 0.2 mg INHALATION RT-QID PRN 09/23/24 09/23/24 Meloxicam [Mobic] 15 mg PO DAILY PRN 09/23/24 09/23/24 Oxybutynin Chloride [oxyBUTYnin 15 mg PO DAILY 09/23/24 09/23/24 chloride ER] Rosuvastatin [Crestor] 10 mg PO DAILY 09/23/24 09/23/24 Allergies Allergy/AdvReac Type Severity Reaction Status Date / Time erythromycin base Allergy Severe Rash/Hives/ Verified 09/23/24 20:36 [Erythromycin Base] SOB amoxicillin [Amoxicillin] Allergy Rash/Hives Verified 09/23/24 20:36 bupropion HCl Allergy Swelling Verified 09/23/24 20:36 [From Wellbutrin] ONE A DAY MULTIVITAMIN Allergy Itching/HIV Uncoded 09/23/24 19:58 ES Review of Systems ROS Statement: Those systems with pertinent positive or pertinent negative responses have been documented in the HPI. ROS Other: All systems not noted in ROS Statement are negative. Past Medical History Past Medical History: COPD, Diabetes Mellitus, Fibromyalgia, Hyperlipidemia, Osteoarthritis (OA), Pneumonia, Sleep Apnea/CPAP/BIPAP Additional Past Medical History / Comment(s): states "has infection around belly button"Degenerative Disc Disease, gonorrhea many years ago. hx heart murmer, blood in stool, dry skin patches, uses cane or walker due to athritis in mult joints,uses cpap History of Any Multi-Drug Resistant Organisms: None Reported Past Surgical History: Section, Orthopedic Surgery, Tonsillectomy, Tubal Ligation Additional Past Surgical History / Comment(s): tumor biopsy from neck (thyroid area), ganglion cyst removed from left foot, exp. laparoscopy, COLONOSCOPY Past Anesthesia/Blood Transfusion Reactions: Previous Problems w/ Anesthesia Additional Past Anesthesia/Blood Transfusion Reaction / Comment(s): States "could not catch her breath when she awoke" from general anesthesia, states was in a panic Past Psychological History: Anxiety, Bipolar, Depression Smoking Status: Current every day smoker Past Alcohol Use History: None Reported Past Drug Use History: None Reported - Past Family History Mother Family Medical History: Cancer Additional Family Medical History / Comment(s): Lung cancer Brother(s) Family Medical History: Deep Vein Thrombosis (DVT) General Exam - General Exam Comments Initial Comments: PHYSICAL EXAM: General Impression: Alert and oriented x3, not in acute distress HEENT: Normocephalic atraumatic, extra-ocular movements intact, pupils equal and reactive to light bilaterally, mucous membranes moist. Cardiovascular: Heart regular rate and rhythm Chest: Able to complete full sentences, no retractions, no tachypnea Abdomen: abdomen soft, right lower quadrant palpatory tenderness, non-distended, no organomegaly Musculoskeletal: Pulses present and equal in all extremities, no peripheral olimpia a Motor: no focal deficits noted Neurological: CN II-XII grossly intact, no focal motor or sensory deficits noted Skin: Intact with no visualized rashes Psych: Normal affect and mood Limitations: no limitations Course Vital Signs 09/23/24 09/23/24 09/23/24 19:59 20:41 21:57 Temperature 100.1 F H 100 F H Pulse Rate 81 74 69 Respiratory 22 18 18 Rate Blood Pressure 84/58 114/67 109/52 O2 Sat by Pulse 97 97 96 Oximetry EKG Findings - EKG Comments: EKG Findings:: My EKG interpretation: Ventricular rate 82, sinus rhythm, UT interval 130, QRS 117, QTc 439. No UT prolongation, no QTC prolongation, no ST or T-wave changes noted. Overall, this EKG is unremarkable Medical Decision Making - Medical Decision Making Was pt. sent in by a medical professional or institution (, PA, CERTIFIED HEALTH EDUCATION SPECIALIST, urgent care, hospital, or chcf...) When possible be specific @ -No Did you speak to anyone other than the patient for history (EMS, parent, family, police, friend...)? What history was obtained from this source @ -No Did you review nursing and triage notes (agree or disagree)? Why? @ -I reviewed and agree with nursing and triage notes Were old charts reviewed (outside hosp., previous admission, EMS record, old EKG, old radiological studies, urgent care reports/EKG's, chcf records)? Report findings @ -No old charts were reviewed Differential Diagnosis (chest pain, altered mental status, abdominal pain women, abdominal pain men, vaginal bleeding, musculoskeletal, weakness, fever, dyspnea, syncope, headache, dizziness, GI bleed, back pain, seizure, CVA, palpatations, mental health)? @ -Differential Fever: Pneumonia, viral URI, endocarditis, myocarditis, pericarditis, otitis, sinusitis, peritonsillar Abscess, retropharyngeal Abscess, epiglottitis, peritonitis, appendicitis, Marjorie cystitis, diverticulitis, hepatitis, colitis, UTI, PID, TOA, pyelonephritis, prostatitis, epididymitis, meningitis, encephalitis, pulmonary embolism, CVA, thyroid storm, pancreatitis, adrenal crisis, cavernous sinus thrombosis, this is not meant to be an all-inclusive list. EKG interpreted by me (3pts min.). @ -See above X-rays interpreted by me (1pt min.). @ -X-ray is nonacute of the chest CT interpreted by me (1pt min.). @ -CT of the abdomen pelvis shows no acute processes U/S interpreted by me (1pt. min.). @ -None done What testing was considered but not performed or refused? (CT, X-rays, U/S, labs)? Why? @ -None What meds were considered but not given or refused? Why? @ -None Was smoking cessation discussed for >3mins.? @ -No Were there social determinants of health that impacted care today? How? (Homelessness, low income, unemployed, alcoholism, drug addiction, transportation, low edu. Level, literacy, decrease access to med. care, residential, rehab)? @ -No Was there de-escalation of care discussed even if they declined (Discuss DNR or withdrawal of care, Hospice)? DNR status @ -No What co-morbidities impacted this encounter? (DM, HTN, Smoking, COPD, CAD, Cancer, CVA, ARF, Chemo, Hep., AIDS, mental health diagnosis, sleep apnea, morbid obesity)? @ -None Was patient admitted / discharged? Hospital course, mention meds given and route, prescriptions, significant lab abnormalities, going to OR and other pertinent info. @ -53-year-old female presents to the emergency department fever and right lower quadrant abdominal pain. She also complains of symptoms of cough. Vital signs upon arrival shows initial blood pressure of 84/58. Temperature of 100.1. Vitals are improved. Patient given IV fluids. Laboratory evaluation obtained. No leukocytosis. Metabolic panel is obtained. Lactic acidosis 2.9. Rest of labs within acceptable limits. Imaging studies are negative. Pending urine studies. Pending viral testing. Did you discuss the management of the patient with other professionals (professionals i.e. , PA, CERTIFIED HEALTH EDUCATION SPECIALIST, lab, RT, psych nurse, social work msw, family health nurse practitioner, teacher, toxics program officer, sample case porter)? Give summary @ -Case discussed with hospitalist for admission Was critical care preformed (if so, how long)? @ -No Undiagnosed new problem with uncertain prognosis? @ -No Drug Therapy requiring intensive monitoring for toxicity (Heparin, Nitro, Insulin, Cardizem)? @ -No Were any procedures done? @ -No Diagnosis/symptom? Acute, or Chronic, or Acute on Chronic? Uncomplicated (without systemic symptoms) or Complicated (systemic symptoms)? @ -SIRS complicated by hypotension and lactic acidosis Side effects of treatment? @ -No Exacerbation, Progression, or Severe Exacerbation? @ -No Poses a threat to life or bodily function? How? (Chest pain, [place], UT, pneumonia, PE, COPD, DKA, ARF, appy, cholecystitis, CVA, Diverticulitis, Homicidal, Suicidal, threat to staff... and all critical care pts) @ -No - Lab Data Result diagrams: 09/23/24 20:22 09/23/24 20:22 Lab Results 09/23/24 09/23/24 09/23/24 Range/Units 20:22 20:22 20:22 WBC 10.2 (3.8-10.6) k/uL RBC 4.99 (3.80-5.40) m/uL Hgb 15.2 (11.4-16.0) gm/dL Hct 45.9 (34.0-46.0) % MCV 91.8 (80.0-100.0) fL MCH 30.4 (25.0-35.0) pg MCHC 33.1 (31.0-37.0) g/dL RDW 12.7 (11.5-15.5) % Plt Count 218 (150-450) k/uL MPV 8.4 Neutrophils % 65 % Lymphocytes % 26 % Monocytes % 5 % Eosinophils % 1 % Basophils % 1 % Neutrophils # 6.7 (1.3-7.7) k/uL Lymphocytes # 2.7 (1.0-4.8) k/uL Monocytes # 0.5 (0-1.0) k/uL Eosinophils # 0.1 (0-0.7) k/uL Basophils # 0.1 (0-0.2) k/uL Sodium 135 L (137-145) mmol/L Potassium 4.1 (3.5-5.1) mmol/L Chloride 102 (98-107) mmol/L Carbon Dioxide 23 (22-30) mmol/L Anion Gap 10 mmol/L BUN 4 L (7-17) mg/dL Creatinine 0.42 L (0.52-1.04) mg/dL Est GFR (CKD-EPI)AfAm >90 (>60 ml/min/1.73 sqM) Est GFR (CKD-EPI)NonAf >90 (>60 ml/min/1.73 sqM) Glucose 131 H (74-99) mg/dL Plasma Lactic Acid Tadeo 2.9 H* (0.7-2.0) mmol/L Calcium 9.3 (8.4-10.2) mg/dL Magnesium 1.6 (1.6-2.3) mg/dL Total Bilirubin 0.6 (0.2-1.3) mg/dL AST 30 (14-36) U/L ALT 18 (4-34) U/L Alkaline Phosphatase 75 (38-126) U/L Troponin I (0.000-0.034) ng/mL Total Protein 7.1 (6.3-8.2) g/dL Albumin 4.1 (3.5-5.0) g/dL 09/23/24 Range/Units 20:22 WBC (3.8-10.6) k/uL RBC (3.80-5.40) m/uL Hgb (11.4-16.0) gm/dL Hct (34.0-46.0) % MCV (80.0-100.0) fL MCH (25.0-35.0) pg MCHC (31.0-37.0) g/dL RDW (11.5-15.5) % Plt Count (150-450) k/uL MPV Neutrophils % % Lymphocytes % % Monocytes % % Eosinophils % % Basophils % % Neutrophils # (1.3-7.7) k/uL Lymphocytes # (1.0-4.8) k/uL Monocytes # (0-1.0) k/uL Eosinophils # (0-0.7) k/uL Basophils # (0-0.2) k/uL Sodium (137-145) mmol/L Potassium (3.5-5.1) mmol/L Chloride (98-107) mmol/L Carbon Dioxide (22-30) mmol/L Anion Gap mmol/L BUN (7-17) mg/dL Creatinine (0.52-1.04) mg/dL Est GFR (CKD-EPI)AfAm (>60 ml/min/1.73 sqM) Est GFR (CKD-EPI)NonAf (>60 ml/min/1.73 sqM) Glucose (74-99) mg/dL Plasma Lactic Acid Tadeo (0.7-2.0) mmol/L Calcium (8.4-10.2) mg/dL Magnesium (1.6-2.3) mg/dL Total Bilirubin (0.2-1.3) mg/dL AST (14-36) U/L ALT (4-34) U/L Alkaline Phosphatase (38-126) U/L Troponin I <0.012 (0.000-0.034) ng/mL Total Protein (6.3-8.2) g/dL Albumin (3.5-5.0) g/dL Disposition Clinical Impression: SIRS (systemic inflammatory response syndrome) Disposition: ADMITTED IP TO THIS [facility] Condition: Fair Referrals: Yulia Landon MD [Primary Care Provider] - 1-2 days Decision Time: 22:02
--- NOTE | 2024-09-23 20:25 | XR ---
EXAMINATION TYPE: XR chest 2V DATE OF EXAM: 09/23/2024 8:15 PM COMPARISON: 08/21/2023 CLINICAL INDICATION: Female, 53 years old with history of cough, TECHNIQUE: XR chest 2V view(s) obtained. FINDINGS: The heart size is normal. The pulmonary vasculature is normal. The lungs are clear. IMPRESSION: 1. No acute pulmonary process. [facility], , 09/23/2024 8:23 PM
[2024-09-23] MEDS: KETOROLAC 15 MG/ML 1 ML VIAL IVP STA (20:37)
[2024-09-23 20:39] LABS: Basophils # (A) 0.1 k/uL (0-0.2); Basophils % (A) 1 %; Eosinophils # (A) 0.1 k/uL (0-0.7); Eosinophils % (A) 1 %; HCT 45.9 % (34.0-46.0); HGB 15.2 gm/dL (11.4-16.0); Lymphocytes # (A) 2.7 k/uL (1.0-4.8); Lymphocytes % (A) 26 %; MCH 30.4 pg (25.0-35.0); MCHC 33.1 g/dL (31.0-37.0); MCV 91.8 fL (80.0-100.0); Mean Platelet Volume 8.4; Monocytes # (A) 0.5 k/uL (0-1.0); Monocytes % (A) 5 %; Neutrophils # (A) 6.7 k/uL (1.3-7.7); Neutrophils % (A) 65 %; Platelet Count 218 k/uL (150-450); RBC 4.99 m/uL (3.80-5.40); RDW 12.7 % (11.5-15.5); WBC 10.2 k/uL (3.8-10.6)
[2024-09-23 20:52] LABS: ALT 18 U/L (4-34); AST 30 U/L (14-36); African American GFR (CKD) >90 (>60 ml/min/1.73 sqM); Albumin 4.1 g/dL (3.5-5.0); Alkaline Phosphatase 75 U/L (38-126); Anion Gap 10 mmol/L; Blood Urea Nitrogen 4 mg/dL (7-17); Calcium 9.3 mg/dL (8.4-10.2); Carbon Dioxide 23 mmol/L (22-30); Chloride 102 mmol/L (98-107); Glucose 131 mg/dL (74-99); Magnesium 1.6 mg/dL (1.6-2.3); Non-African American GFR(CKD) >90 (>60 ml/min/1.73 sqM); Potassium 4.1 mmol/L (3.5-5.1); Sodium 135 mmol/L (137-145); Total Bilirubin 0.6 mg/dL (0.2-1.3); Total Protein 7.1 g/dL (6.3-8.2)
--- NOTE | 2024-09-23 21:32 | CT ---
EXAMINATION TYPE: CT abdomen pelvis w con DATE OF EXAM: 09/23/2024 9:16 PM COMPARISON: None. CLINICAL INDICATION: Female, 53 years old with history of RLQ pain, Pt presents with fever, nausea, n ight sweats, cough, for the past week. TECHNIQUE: Axial images were obtained from above the diaphragm to the pubic rami in the axial plane a t 5 mm thick sections. Reconstructed images are reviewed on the computer in the coronal plane. CONTRAST: 100 mL of Isovue 300. Study performed without Oral Contrast DLP: 3375.9 mGycm, Automated exposure control for dose reduction was used. FINDINGS: Limited CT sections are obtained the lung bases. The lung bases are clear. CT ABDOMEN: Liver: There is some mild fatty infiltration liver. No discrete masses Spleen: Normal Pancreas: Normal Adrenal glands: The adrenal glands are normal. Gallbladder: Faint gallstone appears to be present. Kidneys: No masses are evident. No hydronephrosis is present. No cysts are present. Delayed images were obtained through the kidneys, which remain unremarkable. Aorta: Vascular calcification is within the aorta. Inferior vena cava: Normal. CT PELVIS: Loops of bowel within the abdomen and pelvis are normal. This study is without oral contrast limi ts bowel evaluation. Appendix: Normal as visualized. Urinary bladder: Decompressed with limited evaluation. Genitourinary structures: 2.6 cm cyst superiorly on the right ovary. Left adnexa appears normal. Uter us is unremarkable Osseous structures: No suspicious lytic or sclerotic lesions. IMPRESSION: 1. Right ovarian cysts 2. Cholelithiasis. 3. Minimal fatty infiltration liver [facility], , 09/23/2024 9:30 PM
[2024-09-23] MEDS ORDERED: NALOXONE 0.4 MG/ML 1 ML VIAL IV PRN (21:58)
[2024-09-23] MEDS ORDERED: ONDANSETRON 4 MG/2 ML VIAL IVP PRN (21:58)
[2024-09-23 22:09] LABS: Appearance,Urine Clear (Clear); Bacteria,Urine Many /hpf; Bilirubin,Urine Negative (Negative); Blood,Urine Negative (Negative); Color,Urine Yellow; Glucose,Urine (UA) Negative (Negative); Hyaline Casts,Urine 15 /lpf (0-2); Ketones,Urine Negative (Negative); Leukocyte Esterase,Urine Negative (Negative); Mucus,Urine Moderate /hpf; Nitrite,Urine Negative (Negative); Protein,Urine 1+ (Negative); RBC,Urine 5 /hpf (0-5); Specific Gravity,Urine >1.050 (1.001-1.035); Squamous Epithelial Cell,Urine 18 /hpf (0-4); Urobilinogen,Urine <2.0 mg/dL (<2.0); WBC,Urine 17 /hpf (0-5)
[2024-09-23] MEDS: ACETAMINOPHEN TAB 325 MG TAB PO PRN (22:13)
[2024-09-23] MEDS: SODIUM CHLORIDE 0.9% 1,000 ML IV SCH (22:15)
[2024-09-24 03:59] LABS: Basophils # (A) 0.1 k/uL (0-0.2); Basophils % (A) 1 %; Eosinophils # (A) 0.1 k/uL (0-0.7); Eosinophils % (A) 1 %; HCT 40.9 % (34.0-46.0); HGB 13.2 gm/dL (11.4-16.0); Lymphocytes # (A) 3.2 k/uL (1.0-4.8); Lymphocytes % (A) 30 %; MCH 29.8 pg (25.0-35.0); MCHC 32.3 g/dL (31.0-37.0); MCV 92.1 fL (80.0-100.0); Mean Platelet Volume 8.2; Monocytes # (A) 0.5 k/uL (0-1.0); Monocytes % (A) 5 %; Neutrophils # (A) 6.5 k/uL (1.3-7.7); Neutrophils % (A) 62 %; Platelet Count 207 k/uL (150-450); RBC 4.44 m/uL (3.80-5.40); RDW 12.7 % (11.5-15.5); WBC 10.5 k/uL (3.8-10.6)
[2024-09-24 04:10] LABS: African American GFR (CKD) >90 (>60 ml/min/1.73 sqM); Anion Gap 3 mmol/L; Blood Urea Nitrogen 7 mg/dL (7-17); Calcium 8.8 mg/dL (8.4-10.2); Carbon Dioxide 30 mmol/L (22-30); Chloride 103 mmol/L (98-107); Glucose 97 mg/dL (74-99); Non-African American GFR(CKD) >90 (>60 ml/min/1.73 sqM); Potassium 4.1 mmol/L (3.5-5.1); Sodium 136 mmol/L (137-145)
[2024-09-24] MEDS ORDERED: IPRATROPIUM 0.5 MG/2.5 ML NEBU INHALATION PRN (06:45)
[2024-09-24] MEDS: HYDROcodone/APAP 7.5-325MG 1 EACH TAB PO PRN (06:56)
[2024-09-24] MEDS: ATORVASTATIN 20 MG TAB PO SCH (08:42)
[2024-09-24] MEDS: GABAPENTIN 300 MG CAP PO SCH (08:42)
[2024-09-24] MEDS: IPRATROPIUM 0.5 MG/2.5 ML NEBU INHALATION SCH (09:12)
[2024-09-24] MEDS: SYMBICORT 80-4.5 MCG INHALER INHALATION SCH (09:12)
[2024-09-24] MEDS: OXYBUTYNIN 15 MG TAB.ER.24 PO SCH (09:33)
[2024-09-24 11:50] LABS: Glucose,Whole Blood 94 mg/dL (70-110)
[2024-09-24] MEDS: CEFEPIME 2 GM in SODIUM CHLORIDE 0.9% 100 ML IVPB SCH (12:24)
--- NOTE | 2024-09-24 14:14 | P.GSCN ---
History of Present Illness Consult date: 09/24/24 History of present illness: CHIEF COMPLAINT: Abdominal pain HISTORY OF PRESENT ILLNESS: This is a 53-year-old female who presented to the hospital with complaints of right sided abdominal pain more so on the right lower quadrant that started 3 days ago. Patient reports the pain is mostly in the right lower quadrant and some right upper quadrant pain that radiates to the back. Also some mild epigastric discomfort. She has been having nausea. She is actually been having low-grade temps for the past 2 weeks and having sweats. She initially thought symptoms were related to the flu vaccine that she received few weeks ago. However, the abdominal pain was new and worsened. CAT scan had revealed gallstones and a right ovarian cyst. Past surgical history includes an exploratory laparotomy for endometriosis and a and tubal ligation. PAST MEDICAL HISTORY: COPD, Diabetes Mellitus, Fibromyalgia, Hyperlipidemia, Osteoarthritis (OA), Pneumonia, Sleep Apnea/CPAP/BIPAP, anxiety, bipolar and depression, chronic back pain PAST SURGICAL HISTORY: Section, Orthopedic Surgery, Tonsillectomy, Tubal Ligation MEDICATIONS: See below ALLERGIES: See below SOCIAL HISTORY: No illicit drug use. REVIEW OF SYSTEMS: CONSTITUTIONAL: Denies fever or chills. HEENT: Denies blurred vision, vision changes, or eye pain. Denies hemoptysis CARDIOVASCULAR: Denies chest pain or pressure. RESPIRATORY: No shortness of breath. GASTROINTESTINAL: See HPI for pertinent findings HEMATOLOGIC: Denies bleeding disorders. GENITOURINARY: Denies any blood in urine or increased urinary frequency. SKIN: Denies pruitis. Denies rash. PHYSICAL EXAM: VITAL SIGNS: Reviewed GENERAL: Well-developed in no acute distress. HEENT: No sclera icterus. Extraocular movements grossly intact. Moist buccal mucosa. Head is atraumatic, normocephalic. No nasal drainage. ABDOMEN: Soft. Nondistended. Patient has mild discomfort with palpation to the epigastric area and right upper quadrant more tender in the right lower quadrant. Morbid obesity. NEUROLOGIC: Alert and oriented. Cranial nerves II through XII grossly intact. LABORATORY DATA: WBC is 10.5 Hgb 13.2 platelets 207 Sodium 136 potassium is 4.1 creatinine 0.52 Lactic acid 2.9 down to 1.5 IMAGING: CT scan abdomen pelvis reports right ovarian cyst, cholelithiasis, minimal fatty infiltration of liver. Normal appendix ASSESSMENT: 1. Abdominal pain mostly right lower quadrant with low-grade fever PLAN: -Agree with a CT scan abdomen pelvis with oral contrast for further evaluation of abdominal pain -Gallbladder ultrasound ordered for further evaluation gallbladder disease -Continue antibiotics -Continue regular diet Physician Rn Diabetes note has been reviewed by physician. Signing provider agrees with the documented findings, assessment, and plan of care. Past Medical History Past Medical History: COPD, Diabetes Mellitus, Fibromyalgia, Hyperlipidemia, Osteoarthritis (OA), Pneumonia, Sleep Apnea/CPAP/BIPAP Additional Past Medical History / Comment(s): states "has infection around belly button"Degenerative Disc Disease, gonorrhea many years ago. hx heart murmer, blood in stool, dry skin patches, uses cane or walker due to athritis in mult joints,uses cpap History of Any Multi-Drug Resistant Organisms: None Reported Past Surgical History: Section, Orthopedic Surgery, Tonsillectomy, Tubal Ligation Additional Past Surgical History / Comment(s): tumor biopsy from neck (thyroid area), ganglion cyst removed from left foot, exp. laparoscopy, COLONOSCOPY Past Anesthesia/Blood Transfusion Reactions: Previous Problems w/ Anesthesia Additional Past Anesthesia/Blood Transfusion Reaction / Comm: States "could not catch her breath when she awoke" from general anesthesia, states was in a panic Past Psychological History: Anxiety, Bipolar, Depression Additional Psychological History / Comment(s): Borderline Personality Disorder Smoking Status: Current every day smoker Past Alcohol Use History: None Reported Additional Past Alcohol Use History / Comment(s): SMOKES 1 PPD SINCE AGE 18 Past Drug Use History: None Reported - Past Family History Mother Family Medical History: Cancer Additional Family Medical History / Comment(s): Lung cancer Brother(s) Family Medical History: Deep Vein Thrombosis (DVT) Medications and Allergies Home Medications Medication Instructions Recorded Confirmed Type FLUoxetine HCL [PROzac] 20 mg PO HS 03/08/15 09/23/24 History metFORMIN HCL [Glucophage] 1,000 mg PO BID 08/11/18 09/23/24 History Gabapentin 600 mg PO BID 04/18/21 09/23/24 History HYDROcodone/APAP 7.5-325MG [[place] 1 tab PO TID 08/14/21 09/23/24 History 7.5-325] Semaglutide [Ozempic] 1 mg SQ FR 08/14/21 09/23/24 History Albuterol Nebulized [Ventolin 2.5 mg INHALATION RT-QID PRN 09/23/24 09/23/24 History Nebulized] Cyanocobalamin (Vitamin B-12) 1,000 mcg PO DAILY 09/23/24 09/23/24 History [Vitamin B-12] Fluticasone/Umeclidin/Vilanter 1 puff INHALATION RT-DAILY 09/23/24 09/23/24 History [Trelegy Ellipta 100-62.5-25] Ipratropium [place] 0.2 mg INHALATION RT-QID PRN 09/23/24 09/23/24 History Meloxicam [Mobic] 15 mg PO DAILY PRN 09/23/24 09/23/24 History Oxybutynin Chloride [oxyBUTYnin 15 mg PO DAILY 09/23/24 09/23/24 History chloride ER] Rosuvastatin [Crestor] 10 mg PO DAILY 09/23/24 09/23/24 History Allergies Allergy/AdvReac Type Severity Reaction Status Date / Time erythromycin base Allergy Severe Rash/Hives/ Verified 09/23/24 20:36 [Erythromycin Base] SOB amoxicillin [Amoxicillin] Allergy Rash/Hives Verified 09/23/24 20:36 bupropion HCl Allergy Swelling Verified 09/23/24 20:36 [From Wellbutrin] ONE A DAY MULTIVITAMIN Allergy Itching/HIV Uncoded 09/23/24 19:58 ES Surgical - Exam Vital Signs Temp Pulse Resp BP Pulse Ox 100.1 F H 81 22 84/58 97 09/23/24 19:59 09/23/24 19:59 09/23/24 19:59 09/23/24 19:59 09/23/24 19:59 Results - Labs 09/24/24 03:29 09/24/24 03:24 Abnormal Lab Results - Last 24 Hours (Table) 09/23/24 09/23/24 09/23/24 Range/Units 20:22 20:22 21:57 Sodium 135 L (137-145) mmol/L BUN 4 L (7-17) mg/dL Creatinine 0.42 L (0.52-1.04) mg/dL Glucose 131 H (74-99) mg/dL Plasma Lactic Acid [place] 2.9 H* (0.7-2.0) mmol/L Ur Specific [place] >1.050 H (1.001-1.035) Urine Protein 1+ H (Negative) Urine WBC 17 H (0-5) /hpf Ur Squamous Epith Cells 18 H (0-4) /hpf Urine Bacteria Many H (None) /hpf Hyaline Casts 15 H (0-2) /lpf Urine Mucus Moderate H (None) /hpf 09/24/24 Range/Units 03:24 Sodium 136 L (137-145) mmol/L BUN (7-17) mg/dL Creatinine (0.52-1.04) mg/dL Glucose (74-99) mg/dL Plasma Lactic Acid [place]ade[place] (0.7-2.0) mmol/L Ur Specific [place] (1.001-1.035) Urine Protein (Negative) Urine WBC (0-5) /hpf Ur Squamous Epith Cells (0-4) /hpf Urine Bacteria (None) /hpf Hyaline Casts (0-2) /lpf Urine Mucus (None) /hpf Diabetes panel 09/23/24 09/24/24 Range/Units 20:22 03:24 Sodium 135 L 136 L (137-145) mmol/L Potassium 4.1 4.1 (3.5-5.1) mmol/L Chloride 102 103 (98-107) mmol/L Carbon Dioxide 23 30 (22-30) mmol/L BUN 4 L 7 (7-17) mg/dL Creatinine 0.42 L 0.52 (0.52-1.04) mg/dL Glucose 131 H 97 (74-99) mg/dL Calcium 9.3 8.8 (8.4-10.2) mg/dL AST 30 (14-36) U/L ALT 18 (4-34) U/L Alkaline Phosphatase 75 (38-126) U/L Total Protein 7.1 (6.3-8.2) g/dL Albumin 4.1 (3.5-5.0) g/dL Calcium panel 09/23/24 09/24/24 Range/Units 20:22 03:24 Calcium 9.3 8.8 (8.4-10.2) mg/dL Albumin 4.1 (3.5-5.0) g/dL Pituitary panel 09/23/24 09/24/24 Range/Units 20:22 03:24 Sodium 135 L 136 L (137-145) mmol/L Potassium 4.1 4.1 (3.5-5.1) mmol/L Chloride 102 103 (98-107) mmol/L Carbon Dioxide 23 30 (22-30) mmol/L BUN 4 L 7 (7-17) mg/dL Creatinine 0.42 L 0.52 (0.52-1.04) mg/dL Glucose 131 H 97 (74-99) mg/dL Calcium 9.3 8.8 (8.4-10.2) mg/dL Adrenal panel 09/23/24 09/24/24 Range/Units 20:22 03:24 Sodium 135 L 136 L (137-145) mmol/L Potassium 4.1 4.1 (3.5-5.1) mmol/L Chloride 102 103 (98-107) mmol/L Carbon Dioxide 23 30 (22-30) mmol/L BUN 4 L 7 (7-17) mg/dL Creatinine 0.42 L 0.52 (0.52-1.04) mg/dL Glucose 131 H 97 (74-99) mg/dL Calcium 9.3 8.8 (8.4-10.2) mg/dL Total Bilirubin 0.6 (0.2-1.3) mg/dL AST 30 (14-36) U/L ALT 18 (4-34) U/L Alkaline Phosphatase 75 (38-126) U/L Total Protein 7.1 (6.3-8.2) g/dL Albumin 4.1 (3.5-5.0) g/dL
[2024-09-24] MEDS ORDERED: DEXTROSE 50% SYRINGE 50 ML IVP PRN ×2 (15:08)
[2024-09-24 15:19] LABS: C Reactive Protein 3.9 mg/dL (0.00-0.80)
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
[2024-09-24 16:43] LABS: Glucose,Whole Blood 108 mg/dL (70-110)
[2024-09-24] MEDS: INSULIN ASPART (NovoLOG) 100 UNIT/ML VIAL SQ SCH (16:52)
[2024-09-24] MEDS: metroNIDAZOLE 500 MG TAB PO SCH (16:55)
[2024-09-24] MEDS: IOPAMIDOL CONTRAST (ORAL USE) VIAL PO PRN (19:38)
[2024-09-24 21:00] LABS: Glucose,Whole Blood 127 mg/dL (70-110)
--- NOTE | 2024-09-24 21:35 | CT ---
EXAMINATION TYPE: CT abdomen pelvis w con DATE OF EXAM: 09/24/2024 9:28 PM COMPARISON: None. CLINICAL INDICATION: Female, 53 years old with history of Fever, abdominal abdominal pain, fever, abd ominal pain. Oral contrast given, IV conteast given iso 300 100 mL. Scanned by JG. TECHNIQUE: Axial images were obtained from above the diaphragm to the pubic rami in the axial plane a t 5 mm thick sections. Reconstructed images are reviewed on the computer in the coronal plane. CONTRAST: 100 mL mL of Isovue 300. Study performed with Oral Contrast DLP: 3557.9 mGycm, Automated exposure control for dose reduction was used. FINDINGS: Limited CT sections are obtained the lung bases. The lung bases are clear. CT ABDOMEN: Liver: Moderate fatty infiltration of liver is present. Spleen: Normal Pancreas: Normal Adrenal glands: The adrenal glands are normal. Gallbladder: Normal Kidneys: No masses are evident. No hydronephrosis is present. No cysts are present. Delayed images were obtained through the kidneys, which remain unremarkable. Aorta: Vascular calcification is within the aorta. Inferior vena cava: Normal. CT PELVIS: Loops of bowel within the abdomen and pelvis are normal. There are loops of bowel which are incom pletely distended or lack oral contrast limiting their evaluation. Appendix: Normal as visualized. Urinary bladder: Normal. Genitourinary structures: There is a pair of cysts in the right adnexa with a transverse dimension of 2.7 cm. Right adnexa appears normal uterus appears normal Osseous structures: No suspicious lytic or sclerotic lesions. IMPRESSION: 1. Right ovarian cysts. 2. Moderate fatty infiltration of liver [facility], , 09/24/2024 9:32 PM
[2024-09-24] MEDS: FLUoxetine HCL 20 MG CAP PO SCH (21:37)
--- NOTE | 2024-09-25 05:38 | P.CONS ---
History of Present Illness - Reason for Consult Consult date: 09/24/24 SIRS Requesting physician: Johann Hammer - Chief Complaint Abdominal pain x few days - History of Present Illness Patient is a 53-year-old female with a past medical history significant for COPD, Diabetes Mellitus, Fibromyalgia, Hyperlipidemia, Osteoarthritis (OA), Pneumonia, Sleep Apnea/CPAP/BIPAP and apparently recently has been treated for pneumonia with an oral antibiotic patient presenting to the hospital for evaluation of right lower quadrant abdominal pain that apparently has been going on for the last few days patient describes the pain to be dull aching moderate intensity without any radiation patient did have some nausea up and poor appetite but no vomiting denies having any diarrhea did have some constipation patient on presentation to the hospital did have a low-grade fever of 100.1 F and subsequently have fever 100.6 degrees warm hide this morning patient was not tachycardic hypotensive or hypoxic she did have white count of 10.5 with a left shift creatinine 0.52 urine has been mildly positive patient did have a chest x-ray no acute cardiopulmonary process patient also have a CT abdominal pelvis right ovarian cyst cholelithiasis infectious disease was consulted because of her fever and abdominal pain Review of Systems Positive point and negatives has been mentioned in the HPI, complete review of systems was performed and all other systems are negative Past Medical History Past Medical History: COPD, Diabetes Mellitus, Fibromyalgia, Hyperlipidemia, Osteoarthritis (OA), Pneumonia, Sleep Apnea/CPAP/BIPAP Additional Past Medical History / Comment(s): states "has infection around belly button"Degenerative Disc Disease, gonorrhea many years ago. hx heart murmer, blood in stool, dry skin patches, uses cane or walker due to athritis in mult joints,uses cpap History of Any Multi-Drug Resistant Organisms: None Reported Past Surgical History: Section, Orthopedic Surgery, Tonsillectomy, Tubal Ligation Additional Past Surgical History / Comment(s): tumor biopsy from neck (thyroid area), ganglion cyst removed from left foot, exp. laparoscopy, COLONOSCOPY Past Anesthesia/Blood Transfusion Reactions: Previous Problems w/ Anesthesia Additional Past Anesthesia/Blood Transfusion Reaction / Comm: States "could not catch her breath when she awoke" from general anesthesia, states was in a panic Past Psychological History: Anxiety, Bipolar, Depression Additional Psychological History / Comment(s): Borderline Personality Disorder Smoking Status: Current every day smoker Past Alcohol Use History: None Reported Additional Past Alcohol Use History / Comment(s): SMOKES 1 PPD SINCE AGE 18 Past Drug Use History: None Reported - Past Family History Mother Family Medical History: Cancer Additional Family Medical History / Comment(s): Lung cancer Brother(s) Family Medical History: Deep Vein Thrombosis (DVT) Medications and Allergies Home Medications Medication Instructions Recorded Confirmed Type FLUoxetine HCL [PROzac] 20 mg PO HS 03/08/15 09/23/24 History metFORMIN HCL [Glucophage] 1,000 mg PO BID 08/11/18 09/23/24 History Gabapentin 600 mg PO BID 04/18/21 09/23/24 History HYDROcodone/APAP 7.5-325MG [[place] 1 tab PO TID 08/14/21 09/23/24 History 7.5-325] Semaglutide [Ozempic] 1 mg SQ FR 08/14/21 09/23/24 History Albuterol Nebulized [Ventolin 2.5 mg INHALATION RT-QID PRN 09/23/24 09/23/24 History Nebulized] Cyanocobalamin (Vitamin B-12) 1,000 mcg PO DAILY 09/23/24 09/23/24 History [Vitamin B-12] Fluticasone/Umeclidin/Vilanter 1 puff INHALATION RT-DAILY 09/23/24 09/23/24 History [Trelegy Ellipta 100-62.5-25] Ipratropium [place] 0.2 mg INHALATION RT-QID PRN 09/23/24 09/23/24 History Meloxicam [Mobic] 15 mg PO DAILY PRN 09/23/24 09/23/24 History Oxybutynin Chloride [oxyBUTYnin 15 mg PO DAILY 09/23/24 09/23/24 History chloride ER] Rosuvastatin [Crestor] 10 mg PO DAILY 09/23/24 09/23/24 History Allergies Allergy/AdvReac Type Severity Reaction Status Date / Time erythromycin base Allergy Severe Rash/Hives/ Verified 09/23/24 20:36 [Erythromycin Base] SOB amoxicillin [Amoxicillin] Allergy Rash/Hives Verified 09/23/24 20:36 bupropion HCl Allergy Swelling Verified 09/23/24 20:36 [From Wellbutrin] ONE A DAY MULTIVITAMIN Allergy Itching/HIV Uncoded 09/23/24 19:58 ES Physical Exam Vitals: Vital Signs Temp Pulse Pulse Resp BP BP Pulse Ox 09/24/24 09:20 70 09/24/24 09:12 72 09/24/24 07:32 100.6 F H 76 18 108/69 94 L 09/24/24 00:38 98.6 F 74 18 120/45 09/23/24 23:05 75 18 103/54 94 L 09/23/24 23:00 99.2 F 09/23/24 21:57 100 F H 69 18 109/52 96 09/23/24 20:41 74 18 114/67 97 09/23/24 19:59 100.1 F H 81 22 84/58 97 Intake and Output 09/23/24 09/24/24 09/24/24 22:59 06:59 14:59 Other: # Voids 2 1 Weight 136.078 kg 136.078 kg GENERAL DESCRIPTION: Middle-aged female lying in bed, no distress. No tachypnea or accessory muscle of respiration use. HEENT: Shows Pallor , no scleral icterus. Oral mucous membrane is dry. No pharyngeal erythema or thrush NECK: Trachea central, no thyromegaly. LUNGS: Unlabored breathing. Clear to auscultation anteriorly. No wheeze or crackle. HEART: S1, S2, regular rate and rhythm. No loud murmur ABDOMEN: Soft, no tenderness , guarding or rigidity, EXTREMITIES: No edema of feet. SKIN: No rash, no masses palpable. NEUROLOGICAL: The patient is awake, alert, oriented x3, mood and affect normal. Results CBC & Chem 7: 09/24/24 03:29 09/24/24 03:24 Labs: Abnormal Lab Results - Last 24 Hours (Table) 09/23/24 09/23/24 09/23/24 Range/Units 20:22 20:22 21:57 Sodium 135 L (137-145) mmol/L BUN 4 L (7-17) mg/dL Creatinine 0.42 L (0.52-1.04) mg/dL Glucose 131 H (74-99) mg/dL Plasma Lactic Acid Tadeo 2.9 H* (0.7-2.0) mmol/L Ur Specific [place] >1.050 H (1.001-1.035) Urine Protein 1+ H (Negative) Urine WBC 17 H (0-5) /hpf Ur Squamous Epith Cells 18 H (0-4) /hpf Urine Bacteria Many H (None) /hpf Hyaline Casts 15 H (0-2) /lpf Urine Mucus Moderate H (None) /hpf 09/24/24 Range/Units 03:24 Sodium 136 L (137-145) mmol/L BUN (7-17) mg/dL Creatinine (0.52-1.04) mg/dL Glucose (74-99) mg/dL Plasma Lactic Acid Tadeo (0.7-2.0) mmol/L Ur Specific [place] (1.001-1.035) Urine Protein (Negative) Urine WBC (0-5) /hpf Ur Squamous Epith Cells (0-4) /hpf Urine Bacteria (None) /hpf Hyaline Casts (0-2) /lpf Urine Mucus (None) /hpf Assessment and Plan (1) SIRS (systemic inflammatory response syndrome) Current Visit: Yes Status: Acute Code(s): R65.10 - SIRS OF NON-INFECTIOUS ORIGIN W/O ACUTE ORGAN DYSFUNCTION SNOMED Code(s): 054579855 Plan: 1patient presented to hospital with right lower quadrant abdominal pain and this patient also has been running a fever low-grade patient did not have any significant tenderness medical examination for any evidence of cellulitis with initial CT done without oral contrast limiting evaluation of the GI tract could be the possible etiology versus related to the ovarian cyst 2patient with a penicillin allergy that will limit the number of antibiotics safe to use 3we will check a CT of abdominal pelvis with oral and IV contrast for better evaluation of intra-abdominal pathology 4we will empirically start the patient on cefepime and Flagyl pending workup completion We will follow on clinical condition and cultures to further adjust medication if needed Thank you for this consultation we will follow the patient along with you Dictation was produced using [employer] dictation software. please excuse any grammatical, word or spelling errors. Time with Patient: Greater than 30
[2024-09-25 06:22] LABS: Glucose,Whole Blood 95 mg/dL (70-110)
[2024-09-25] MEDS: CEFEPIME 2 GM in SODIUM CHLORIDE 0.9% 100 ML IVPB SCH (06:22)
[2024-09-25 09:45] LABS: HCT 45.7 % (37.2-46.3); HGB 14.7 g/dL (12.0-15.0); MCH 29.7 pg (27.0-32.0); MCHC 32.2 g/dL (32.0-37.0); MCV 92.3 FL (80.0-97.0); Mean Platelet Volume 10.7 FL (9.5-12.2); NRBC Per 100 WBC 0 X 10*3/uL (0.00-0.01); Platelet Count 222 X 10*3/uL (140-440); RBC 4.95 X 10*6/uL (4.10-5.20)
[2024-09-25 09:49] LABS: Blood Urea Nitrogen 4.2 mg/dL (9.0-27.0); Calcium 9.3 mg/dL (8.7-10.3); Carbon Dioxide 29.5 mmol/L (21.6-31.8); Chloride 102 mmol/L (96-109); Glucose 107 mg/dL (70-110); Potassium 4.6 mmol/L (3.5-5.5); Sodium 142 mmol/L (135-145)
[2024-09-25] MEDS: PANTOPRAZOLE 40 MG/10 ML VIAL IVP SCH (10:08)
[2024-09-25 11:42] LABS: Glucose,Whole Blood 86 mg/dL (70-110)
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
--- NOTE | 2024-09-25 15:19 | US ---
EXAMINATION TYPE: US pelvis complete transvag DATE OF EXAM: 09/25/2024 COMPARISON: CT 09/24/2024 CLINICAL INDICATION: Female, 53 years old with history of Rule out ovarian abscess; RLQ pain; Cyst se en on CT TECHNIQUE: . Transabdominal grayscale sonographic images of the pelvis were acquired. Transvaginal sonographic im ages were medically necessary to better assess the following anatomy: Uterus and ovaries Doppler imaging: Not performed. FINDINGS: Date of LMP: Unknown EXAM MEASUREMENTS: Uterus: Unable to insonate cm Endometrial Stripe: Unable to insonate cm Right Ovary: 5.5 x 3.5 x 4.5 cm Left Ovary: 2.5 x 1.8 x 2.0 cm 1. Uterus: Unable to insonate 2. Endometrium: Unable to insonate 3. Right Ovary: Limited visualization; ? Cystic area with internal debris 4. Left Ovary: Limited visualization; WNL as visualized 5. Bilateral Adnexa: Unable to insonate 6. Posterior cul-de-sac: WNL Difficult exam - patient is incontinent and therefore could not fill bladder; Patient not able to sit properly on [employer] wedge; Limited visualization due to patients body habitus. IMPRESSION: 1. Difficult limited exam evaluation due to patient's body habitus and gas. Unable to identify the e ndometrium. 2. Right adnexal cystic structure with internal debris noted by antisqueak filler. Etiology remains uncert ain abscess not excluded entirely. There is a lesion in the right adnexa on CT imaging; superior and lateral to the uterus possibly representing the ovary versus exophytic fibroid versus right ovarian m ass. Further workup with MRI pelvis recommended with IV contrast. There is fat stranding changes arou nd the right gonadal vein and lymphadenopathy tracking along the retroperitoneum on CT scan. Given ly mphadenopathy malignancy should be in the differential. [facility], Workstation: [id number], 09/25/2024 3:17 PM
--- NOTE | 2024-09-25 15:54 | P.PN ---
Subjective Progress Note Date: 09/25/24 No acute events overnight. No worsening right lower quadrant pain. No nausea or emesis. Tolerating regular diet. Endorses bowel movement and flatus. Ambulatory and voiding. No fevers or chills. No shortness of breath or chest pain. Objective - Vital Signs Vital signs: Vital Signs Temp 99.4 F 09/25/24 08:21 Pulse 70 09/25/24 13:25 Resp 17 09/25/24 08:21 BP 108/70 09/25/24 08:21 Pulse Ox 95 09/25/24 08:21 FiO2 Intake & Output 09/24/24 09/25/24 09/25/24 18:59 06:59 18:59 Other: Voiding Method Diaper Incontinent # Voids 2 5 1 - Exam Gen: AxO, NAD Pulm: non-labored respirations Abd: soft, minimally tender in right lower quadrant. Non-distended. No guarding/rebound/rigidity. Rovsing negative Extrem: no edema seen - Labs CBC & Chem 7: 09/25/24 06:16 09/25/24 06:16 Labs: Abnormal Lab Results - Last 24 Hours (Table) 09/24/24 09/25/24 09/25/24 Range/Units 20:59 06:16 06:16 WBC 11.00 H (4.50-10.00) X 10*3/uL BUN 4.2 L (9.0-27.0) mg/dL Creatinine 0.5 L (0.6-1.5) mg/dL BUN/Creatinine Ratio 8.40 L (12.00-20.00) Ratio POC Glucose (mg/dL) 127 H (70-110) mg/dL Microbiology - Last 24 Hours (Table) 09/23/24 20:22 Blood Culture Gram Stain - Preliminary Blood Blood Culture - Preliminary Molecular ID 09/23/24 21:57 Urine Culture - Preliminary Urine,Voided Gram Neg Bacilli Assessment and Plan Assessment: Patient is a 53-year-old female who presents with right lower quadrant pain without CT evidence of acute appendicitis Plan: -Repeat CT reviewed no evidence of acute appendicitis, evidence of right ovarian cyst -Diet as tolerated -IV fluid hydration -As needed pain and nausea control -DVT/GI prophylaxis -Recommend gynecology evaluation for right adnexal cyst -Care per primary Greyson Hernandez M.D. General Surgery
[2024-09-25 16:29] LABS: Glucose,Whole Blood 136 mg/dL (70-110)
[2024-09-25] MEDS: ALBUTEROL NEBULIZED 2.5 MG/3 ML INHALATION PRN (16:29)
[2024-09-25 21:52] LABS: Glucose,Whole Blood 139 mg/dL (70-110)
[2024-09-26] MEDS: PANTOPRAZOLE 40 MG TABLET PO SCH (06:33)
[2024-09-26 07:05] LABS: Glucose,Whole Blood 138 mg/dL (70-110)
[2024-09-26] MEDS: ENOXAPARIN 40 MG/0.4 ML SYRINGE SQ SCH (08:27)
[2024-09-26 09:56] LABS: Blood Urea Nitrogen 5.7 mg/dL (9.0-27.0); Carbon Dioxide 27.1 mmol/L (21.6-31.8); Chloride 103 mmol/L (96-109); Glucose 105 mg/dL (70-110); Potassium 4.5 mmol/L (3.5-5.5); Sodium 141 mmol/L (135-145)
[2024-09-26 10:04] LABS: HCT 42.3 % (37.2-46.3); HGB 13.5 g/dL (12.0-15.0); MCH 29.3 pg (27.0-32.0); MCHC 31.9 g/dL (32.0-37.0); NRBC Per 100 WBC 0 X 10*3/uL (0.00-0.01); Platelet Count 205 X 10*3/uL (140-440); RDW 13.1 % (11.5-14.5); WBC 11.22 X 10*3/uL (4.50-10.00)
[2024-09-26 11:48] LABS: Glucose,Whole Blood 108 mg/dL (70-110)
--- NOTE | 2024-09-26 12:31 | P.PN ---
Subjective Progress Note Date: 09/26/24 Patient feels better. She states her pain is improved. On exam vital signs are stable. Abdomen soft. Resolved abdominal pain. Patient be discharged home per the medical service. Objective - Vital Signs Vital signs: Vital Signs Temp 100.2 F H 09/26/24 08:00 Pulse 83 09/26/24 08:37 Resp 16 09/26/24 08:00 BP 113/81 09/26/24 08:00 Pulse Ox 93 L 09/26/24 08:00 FiO2 Intake & Output 09/25/24 09/26/24 09/26/24 18:59 06:59 18:59 Intake Total 1620 Balance 1620 Intake: Oral 1620 Other: Voiding Method Diaper Diaper Incontinent Incontinent # Voids 1 4 - Labs CBC & Chem 7: 09/26/24 02:58 09/26/24 02:58 Labs: Abnormal Lab Results - Last 24 Hours (Table) 09/25/24 09/25/24 09/26/24 Range/Units 16:22 21:51 02:58 WBC 11.22 H (4.50-10.00) X 10*3/uL MCHC 31.9 L (32.0-37.0) g/dL BUN (9.0-27.0) mg/dL BUN/Creatinine Ratio (12.00-20.00) Ratio POC Glucose (mg/dL) 136 H 139 H (70-110) mg/dL 09/26/24 09/26/24 Range/Units 02:58 07:04 WBC (4.50-10.00) X 10*3/uL MCHC (32.0-37.0) g/dL BUN 5.7 L (9.0-27.0) mg/dL BUN/Creatinine Ratio 9.50 L (12.00-20.00) Ratio POC Glucose (mg/dL) 138 H (70-110) mg/dL Microbiology - Last 24 Hours (Table) 09/23/24 21:57 Urine Culture - Final Urine,Voided Escherichia coli 09/23/24 20:22 Blood Culture Gram Stain - Preliminary Blood Blood Culture - Preliminary Molecular ID
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
--- NOTE | 2024-09-26 16:46 | P.PN ---
Subjective Progress Note Date: 09/25/24 Principal diagnosis: Reason for follow-up is fever and leukocytosis Patient is a 53-year-old female with a past medical history significant for COPD, Diabetes Mellitus, Fibromyalgia, Hyperlipidemia, Osteoarthritis (OA), Pneumonia, Sleep Apnea/CPAP/BIPAP and apparently recently has been treated for pneumonia with an oral antibiotic patient presenting to the hospital for evaluation of right lower quadrant abdominal pain, patient did have a CT abdominal pelvis x 2 did not show any acute intra-abdominal pathology except right ovarian cyst. On today's evaluation that is 09/25/2024, Patient did have a low-grade fever 100.8 F this afternoon, patient denies any chest pain shortness of breath or cough patient still complaining of right lower quadrant abdominal pain no diarrhea, Patient did have white count of 11,000, creatinine is normal repeat CT abdominal pelvis with contrast did show right ovarian cyst but no acute abnormality Objective - Vital Signs Vital signs: Vital Signs Temp 98.8 F 09/25/24 18:23 Pulse 72 09/25/24 16:42 Resp 17 09/25/24 15:16 BP 121/66 09/25/24 15:16 Pulse Ox 98 09/25/24 15:16 FiO2 Intake & Output 09/25/24 09/25/24 09/26/24 06:59 18:59 06:59 Other: Voiding Method Diaper Incontinent # Voids 5 1 - Exam Middle-age female female up in the chair in no distress No tachypnea or accessory muscle respiration use Unlabored breathing - Labs CBC & Chem 7: 09/26/24 02:58 09/26/24 02:58 Labs: Abnormal Lab Results - Last 24 Hours (Table) 09/24/24 09/25/24 09/25/24 Range/Units 20:59 06:16 06:16 WBC 11.00 H (4.50-10.00) X 10*3/uL BUN 4.2 L (9.0-27.0) mg/dL Creatinine 0.5 L (0.6-1.5) mg/dL BUN/Creatinine Ratio 8.40 L (12.00-20.00) Ratio POC Glucose (mg/dL) 127 H (70-110) mg/dL 09/25/24 Range/Units 16:22 WBC (4.50-10.00) X 10*3/uL BUN (9.0-27.0) mg/dL Creatinine (0.6-1.5) mg/dL BUN/Creatinine Ratio (12.00-20.00) Ratio POC Glucose (mg/dL) 136 H (70-110) mg/dL Microbiology - Last 24 Hours (Table) 09/23/24 20:22 Blood Culture Gram Stain - Preliminary Blood Blood Culture - Preliminary Molecular ID 09/23/24 21:57 Urine Culture - Preliminary Urine,Voided Gram Neg Bacilli Assessment and Plan (1) SIRS (systemic inflammatory response syndrome) Current Visit: Yes Status: Acute Code(s): R65.10 - SIRS OF NON-INFECTIOUS ORIGIN W/O ACUTE ORGAN DYSFUNCTION SNOMED Code(s): 689916992 Plan: 1patient presented to hospital with right lower quadrant abdominal pain and this patient also has been running a fever low-grade patient did not have any significant tenderness medical examination for any evidence of cellulitis with initial CT done without oral contrast limiting evaluation of the GI tract could be the possible etiology versus related to the ovarian cyst 2patient with a penicillin allergy that will limit the number of antibiotics safe to use 3patient did have CT of abdominal pelvis with oral and IV contrast did not show any acute intra-abdominal pathology except right ovarian cyst ultrasound has been ordered by admitting team 4patient urine is growing gram-negative we will continue with the cefepime and Flagyl while waiting for the workup to be completed Dictation was produced using RIGID dictation software. please excuse any grammatical, word or spelling errors. Time with Patient: Less than 30
--- NOTE | 2024-09-26 16:47 | P.PN ---
Subjective Progress Note Date: 09/26/24 Principal diagnosis: Reason for follow-up is fever and leukocytosis Patient is a 53-year-old female with a past medical history significant for COPD, Diabetes Mellitus, Fibromyalgia, Hyperlipidemia, Osteoarthritis (OA), Pneumonia, Sleep Apnea/CPAP/BIPAP and apparently recently has been treated for pneumonia with an oral antibiotic patient presenting to the hospital for evaluation of right lower quadrant abdominal pain, patient did have a CT abdominal pelvis x 2 did not show any acute intra-abdominal pathology except right ovarian cyst. On today's evaluation that is 09/26/2024,the patient continues to running a low- grade fever 100.2 F this morning patient continued complaint of pain to the right lower quadrant area but no worsening no diarrhea no nausea vomiting chest pain shortness of breath or cough. Patient white count is 11.22, creatinine 0.6 urine is growing E. coli sensitive pathogen blood culture with coagulase-negative staph pelvic ultrasound right ovarian cyst question of abscess Objective - Vital Signs Vital signs: Vital Signs Temp 98.2 F 09/26/24 13:55 Pulse 71 09/26/24 13:55 Resp 16 09/26/24 13:55 BP 111/65 09/26/24 13:55 Pulse Ox 98 09/26/24 13:55 FiO2 Intake & Output 09/25/24 09/26/24 09/26/24 18:59 06:59 18:59 Intake Total 1620 Balance 1620 Intake: Oral 1620 Other: Voiding Method Diaper Diaper Incontinent Incontinent # Voids 1 4 - Exam Middle-age female female up in the chair in no distress No tachypnea or accessory muscle respiration use Unlabored breathing - Labs CBC & Chem 7: 09/26/24 02:58 09/26/24 02:58 Labs: Abnormal Lab Results - Last 24 Hours (Table) 09/25/24 09/26/24 09/26/24 Range/Units 21:51 02:58 02:58 WBC 11.22 H (4.50-10.00) X 10*3/uL MCHC 31.9 L (32.0-37.0) g/dL BUN 5.7 L (9.0-27.0) mg/dL BUN/Creatinine Ratio 9.50 L (12.00-20.00) Ratio POC Glucose (mg/dL) 139 H (70-110) mg/dL 09/26/24 Range/Units 07:04 WBC (4.50-10.00) X 10*3/uL MCHC (32.0-37.0) g/dL BUN (9.0-27.0) mg/dL BUN/Creatinine Ratio (12.00-20.00) Ratio POC Glucose (mg/dL) 138 H (70-110) mg/dL Microbiology - Last 24 Hours (Table) 09/23/24 20:22 Blood Culture Gram Stain - Preliminary Blood Blood Culture - Preliminary Coagulase Negative Staph Molecular ID 09/23/24 21:57 Urine Culture - Final Urine,Voided Escherichia coli Assessment and Plan (1) SIRS (systemic inflammatory response syndrome) Current Visit: Yes Status: Acute Code(s): R65.10 - SIRS OF NON-INFECTIOUS ORIGIN W/O ACUTE ORGAN DYSFUNCTION SNOMED Code(s): 160057347 Plan: 1patient presented to hospital with right lower quadrant abdominal pain and this patient also has been running a fever low-grade patient did not have any significant tenderness medical examination for any evidence of cellulitis with initial CT done without oral contrast limiting evaluation of the GI tract could be the possible etiology versus related to the ovarian cyst 2patient with a penicillin allergy that will limit the number of antibiotics safe to use 3patient did have CT of abdominal pelvis with oral and IV contrast did not show any acute intra-abdominal pathology except right ovarian cyst ultrasound confirmed the same findings 4patient urine is growing gram-negative 5patient to continue cefepime and Flagyl benefit from OB evaluation to rule out tubo-ovarian abscess, discussed with the admitting team Dictation was produced using PROSimity dictation software. please excuse any grammatical, word or spelling errors. Time with Patient: Less than 30
[2024-09-26 16:56] LABS: Glucose,Whole Blood 153 mg/dL (70-110)
[2024-09-26 19:05] LABS: Glucose,Whole Blood 124 mg/dL (70-110)
[2024-09-27 06:56] LABS: Glucose,Whole Blood 126 mg/dL (70-110)
[2024-09-27 08:28] LABS: HCT 43.9 % (34.0-46.0); HGB 13.7 gm/dL (11.4-16.0); MCH 29.2 pg (25.0-35.0); MCHC 31.1 g/dL (31.0-37.0); MCV 93.9 fL (80.0-100.0); Mean Platelet Volume 8.3; Platelet Count 214 k/uL (150-450); RBC 4.68 m/uL (3.80-5.40); RDW 12.7 % (11.5-15.5); WBC 9.3 k/uL (3.8-10.6)
--- NOTE | 2024-09-27 09:20 | P.OBCN ---
History of Present Illness Consult date: 09/27/24 Reason for consult: ovarian cyst History of present illness: The patient is a 53-year-old 2 para 2-0-0-2 who presents to the emergency room with complaints of right lower quadrant pain. Her presenting history is well-documented in the other history and physicals. CAT scan and pelvic ultrasound failed to demonstrate any significant findings aside from gallstones and a possible right ovarian cyst in the range of 2 cm in size with some possible internal debris based on the CT scan. Further delineation could not be made based upon technical difficulties with the imaging. On questioning, the patient has been menopausal for 4 to 5 years and has a history of tubal ligation with her final delivery at section years ago. She additionally has a history of exploratory pelvic surgery at which time she reports she was told she had a significant amount of scarring but there was no specific noticed regarding endometriosis. She reports that the washcloth folder who performed her surgery abandon the surgery secondary to potential risks for bowel injury secondary to scarring. On further questioning, she has been in a stable monogamous relationship for approximately 11 years but recently did have 1 episode with a new partner and has some can potential concern for STDs. She specifically raised the concern for HIV given her flulike symptoms. She denies any significant discomfort with intercourse and there is no vaginal discharge or concerns of that nature. There is been no vaginal bleeding. When questioned specifically, she reports the pain is in the right lower quadrant in the groin area near the inguinal canal or possibly from insertion of abdominal muscles into the pubic rami. She does report that she is generally feeling better over the course of the last several days. Obstetrical history: 2 para 2-0-0-2 with 2 term deliveries, the first vaginal with a shoulder dystocia and the second, as a result, by section with intraoperative bilateral tubal ligation. Gynecologic history: Unremarkable. Menopausal for 4 to 5 years with no use of hormone replacement and no irregular bleeding. She denies any history of other infections to include STDs. Review of Systems Review of systems is confined to history of present illness. Past Medical History Past Medical History: COPD, Diabetes Mellitus, Fibromyalgia, Hyperlipidemia, Osteoarthritis (OA), Pneumonia, Sleep Apnea/CPAP/BIPAP Additional Past Medical History / Comment(s): states "has infection around belly button"Degenerative Disc Disease, gonorrhea many years ago. hx heart murmer, blood in stool, dry skin patches, uses cane or walker due to athritis in mult joints,uses cpap History of Any Multi-Drug Resistant Organisms: None Reported Past Surgical History: Section, Orthopedic Surgery, Tonsillectomy, Tubal Ligation Additional Past Surgical History / Comment(s): tumor biopsy from neck (thyroid area), ganglion cyst removed from left foot, exp. laparoscopy, COLONOSCOPY Past Anesthesia/Blood Transfusion Reactions: Previous Problems w/ Anesthesia Additional Past Anesthesia/Blood Transfusion Reaction / Comm: States "could not catch her breath when she awoke" from general anesthesia, states was in a panic Past Psychological History: Anxiety, Bipolar, Depression Additional Psychological History / Comment(s): Borderline Personality Disorder Smoking Status: Current every day smoker Past Alcohol Use History: None Reported Additional Past Alcohol Use History / Comment(s): SMOKES 1 PPD SINCE AGE 18 Past Drug Use History: None Reported - Past Family History Mother Family Medical History: Cancer Additional Family Medical History / Comment(s): Lung cancer Brother(s) Family Medical History: Deep Vein Thrombosis (DVT) Medications and Allergies Home Medications Medication Instructions Recorded Confirmed Type FLUoxetine HCL [PROzac] 20 mg PO HS 03/08/15 09/23/24 History metFORMIN HCL [Glucophage] 1,000 mg PO BID 08/11/18 09/23/24 History Gabapentin 600 mg PO BID 04/18/21 09/23/24 History HYDROcodone/APAP 7.5-325MG [[place] 1 tab PO TID 08/14/21 09/23/24 History 7.5-325] Semaglutide [Ozempic] 1 mg SQ FR 08/14/21 09/23/24 History Albuterol Nebulized [Ventolin 2.5 mg INHALATION RT-QID PRN 09/23/24 09/23/24 History Nebulized] Cyanocobalamin (Vitamin B-12) 1,000 mcg PO DAILY 09/23/24 09/23/24 History [Vitamin B-12] Fluticasone/Umeclidin/Vilanter 1 puff INHALATION RT-DAILY 09/23/24 09/23/24 History [Trelegy Ellipta 100-62.5-25] Ipratropium [place] 0.2 mg INHALATION RT-QID PRN 09/23/24 09/23/24 History Meloxicam [Mobic] 15 mg PO DAILY PRN 09/23/24 09/23/24 History Oxybutynin Chloride [oxyBUTYnin 15 mg PO DAILY 09/23/24 09/23/24 History chloride ER] Rosuvastatin [Crestor] 10 mg PO DAILY 09/23/24 09/23/24 History Allergies Allergy/AdvReac Type Severity Reaction Status Date / Time erythromycin base Allergy Severe Rash/Hives/ Verified 09/23/24 20:36 [Erythromycin Base] SOB amoxicillin [Amoxicillin] Allergy Rash/Hives Verified 09/23/24 20:36 bupropion HCl Allergy Swelling Verified 09/23/24 20:36 [From Wellbutrin] ONE A DAY MULTIVITAMIN Allergy Itching/HIV Uncoded 09/23/24 19:58 ES Exam Vital Signs Temp Pulse Resp BP Pulse Ox 09/27/24 07:23 98.6 F 86 17 135/68 94 L 09/27/24 02:19 98.5 F 77 16 110/67 96 09/26/24 22:00 69 17 09/26/24 19:01 98.7 F 69 17 109/68 99 09/26/24 13:55 98.2 F 71 16 111/65 98 Intake and Output 09/26/24 09/27/24 09/27/24 22:59 06:59 14:59 Intake Total 1080 Balance 1080 Intake: Oral 1080 Other: Voiding Method Diaper Incontinent # Voids 3 4 This is a well-developed, morbidly obese white female in no acute distress. Her abdomen is morbidly obese, soft, with some tenderness in the right lower quadrant near the pubic symphysis. Her extremities are without any cyanosis, clubbing, or edema and are nontender to palpation bilaterally. Bimanual pelvic examination demonstrates a normal atrophic cervix with no cervical motion tenderness. I am unable to appreciate the size or shape of the uterus secondary to abdominal habitus. There is no pelvic pain with the internal examination hand though she does have tenderness with abdominal examination with or without internal examination. Results Result Diagrams: 09/27/24 08:04 09/26/24 02:58 Abnormal Lab Results - Last 24 Hours (Table) 09/26/24 09/26/24 09/26/24 Range/Units 02:58 02:58 16:54 WBC 11.22 H (4.50-10.00) X 10*3/uL MCHC 31.9 L (32.0-37.0) g/dL BUN 5.7 L (9.0-27.0) mg/dL BUN/Creatinine Ratio 9.50 L (12.00-20.00) Ratio POC Glucose (mg/dL) 153 H (70-110) mg/dL 09/26/24 09/27/24 Range/Units 19:04 06:39 WBC (4.50-10.00) X 10*3/uL MCHC (32.0-37.0) g/dL BUN (9.0-27.0) mg/dL BUN/Creatinine Ratio (12.00-20.00) Ratio POC Glucose (mg/dL) 124 H 126 H (70-110) mg/dL Microbiology - Last 24 Hours (Table) 09/25/24 14:20 Blood Culture - Preliminary Blood 09/23/24 20:22 Blood Culture Gram Stain - Preliminary Blood Blood Culture - Preliminary Coagulase Negative Staph Molecular ID 09/23/24 21:57 Urine Culture - Final Urine,Voided Escherichia coli Assessment and Plan (1) Ovarian cyst Current Visit: Yes Status: Acute Code(s): N83.209 - UNSPECIFIED OVARIAN CYST, UNSPECIFIED SIDE SNOMED Code(s): 49846716 Plan: I highly doubt the cyst as a source of her ongoing issues and strongly suspect that it is pre-existing her presentation. There are some question as to whether it is even ovarian in origin and could represent a pseudocyst given her history of significant pelvic adhesions. It would be extraordinarily unlikely to have ascending infection and tubo-ovarian abscess given the fact that she has had a tubal ligation and has essentially been in a stable monogamous relationship for 11 years though she did have 1 recent exposure to a new partner. As a result, I have ordered gonorrhea and chlamydia from urine. I do not believe there is any acute gynecologic process that requires intervention at this time and have told the patient that she certainly can follow-up in the office as an outpatient in 1 to 2 months at which time we will repeat the transvaginal ultrasound in our office to attempt to further elucidate the type, source, and architecture of the mass/cyst. From my perspective, the patient can be discharged unless further medical interventions are indicated. I will sign off the case as of now but we will follow-up on the cultures.
[2024-09-27 11:36] LABS: Glucose,Whole Blood 83 mg/dL (70-110)
--- NOTE | 2024-09-27 11:44 | P.PN ---
Subjective Progress Note Date: 09/27/24 SURGICAL PROGRESS NOTE CHIEF COMPLAINT: Abdominal pain HISTORY OF PRESENT ILLNESS: Patient reports abdominal pain has resolved. She is tolerating diet. She is having bowel movements. Denies any nausea or vomiting. Was seen by PATIENT CONSUMER MARKETER service regarding her ovarian cysts. Afebrile. WBC is down from 11.2-9.3 PHYSICAL EXAM: VITAL SIGNS: Reviewed. GENERAL: Well-developed in no acute distress. ABDOMEN: Soft. Nondistended. Nontender. obese NEUROLOGIC: Alert and oriented. Cranial nerves II through XII grossly intact. ASSESSMENT: 1. Abdominal pain resolved PLAN: -Patient can be discharged from surgical standpoint Physician Automatic Punch Press Operator note has been reviewed by physician. Signing provider agrees with the documented findings, assessment, and plan of care. Objective - Vital Signs Vital signs: Vital Signs Temp 98.6 F 09/27/24 07:23 Pulse 86 09/27/24 07:23 Resp 17 09/27/24 07:23 BP 135/68 09/27/24 07:23 Pulse Ox 94 L 09/27/24 07:23 FiO2 Intake & Output 09/26/24 09/27/24 09/27/24 18:59 06:59 18:59 Intake Total 1080 Balance 1080 Intake: Oral 1080 Other: Voiding Method Diaper Diaper Diaper Incontinent Incontinent Incontinent # Voids 3 4 - Labs CBC & Chem 7: 09/27/24 08:04 09/26/24 02:58 Labs: Abnormal Lab Results - Last 24 Hours (Table) 09/26/24 09/26/24 09/27/24 Range/Units 16:54 19:04 06:39 POC Glucose (mg/dL) 153 H 124 H 126 H (70-110) mg/dL Microbiology - Last 24 Hours (Table) 09/25/24 14:20 Blood Culture - Preliminary Blood 09/23/24 20:22 Blood Culture Gram Stain - Preliminary Blood Blood Culture - Preliminary Coagulase Negative Staph Molecular ID
[2024-09-27 12:39] VITALS: BP 110/61; PULSE 76; RESP 16; TEMP 99.3
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
--- NOTE | 2024-09-28 09:05 | P.PN ---
Subjective Progress Note Date: 09/27/24 Principal diagnosis: Reason for follow-up is fever and leukocytosis Patient is a 53-year-old female with a past medical history significant for COPD, Diabetes Mellitus, Fibromyalgia, Hyperlipidemia, Osteoarthritis (OA), Pneumonia, Sleep Apnea/CPAP/BIPAP and apparently recently has been treated for pneumonia with an oral antibiotic patient presenting to the hospital for evaluation of right lower quadrant abdominal pain, patient did have a CT abdominal pelvis x 2 did not show any acute intra-abdominal pathology except right ovarian cyst. On today's evaluation that is 09/27/2024,the patient remains to be afebrile, patient is on room air not requiring supplemental oxygen and denies any shortness of breath no chest pain or cough.Patient denies having any nausea or vomiting, mention improvement in the lower abdominal pain no diarrhea feeling better wants to go home. Patient white count is 9.3 urine is growing E. coli blood culture repeat so far negative Objective - Vital Signs Vital signs: Vital Signs Temp 98.6 F 09/27/24 07:23 Pulse 86 09/27/24 07:23 Resp 17 09/27/24 07:23 BP 135/68 09/27/24 07:23 Pulse Ox 94 L 09/27/24 07:23 FiO2 Intake & Output 09/26/24 09/27/24 09/27/24 18:59 06:59 18:59 Intake Total 1080 Balance 1080 Intake: Oral 1080 Other: Voiding Method Diaper Diaper Diaper Incontinent Incontinent Incontinent # Voids 3 4 - Exam Middle-age female female up in the chair in no distress No tachypnea or accessory muscle respiration use Unlabored breathing clear auscultation anteriorly Abdominal soft no tenderness - Labs CBC & Chem 7: 09/27/24 08:04 09/26/24 02:58 Labs: Abnormal Lab Results - Last 24 Hours (Table) 09/26/24 09/26/24 09/27/24 Range/Units 16:54 19:04 06:39 POC Glucose (mg/dL) 153 H 124 H 126 H (70-110) mg/dL Microbiology - Last 24 Hours (Table) 09/25/24 14:20 Blood Culture - Preliminary Blood 09/23/24 20:22 Blood Culture Gram Stain - Preliminary Blood Blood Culture - Preliminary Coagulase Negative Staph Molecular ID Assessment and Plan (1) SIRS (systemic inflammatory response syndrome) Status: Acute Code(s): R65.10 - SIRS OF NON-INFECTIOUS ORIGIN W/O ACUTE ORGAN DYSFUNCTION SNOMED Code(s): 436627119 Plan: 1patient presented to hospital with right lower quadrant abdominal pain and this patient also has been running a fever low-grade patient did not have any significant tenderness medical examination for any evidence of cellulitis with initial CT done without oral contrast limiting evaluation of the GI tract could be the possible etiology versus related to the ovarian cyst 2patient with a penicillin allergy that will limit the number of antibiotics safe to use 3patient did have CT of abdominal pelvis with oral and IV contrast did not show any acute intra-abdominal pathology except right ovarian cyst ultrasound confirmed the same findings 4patient urine is growing E. coli that is sensitive to ceftriaxone 5patient t has been evaluated by OB recommending no surgical intervention but close outpatient follow-up, keeping in mind the patient did have improvement on cefepime and Flagyl we will consider a 10-day course of oral Ceftin and Flagyl discussed with admitting team Dictation was produced using [employer] dictation software. please excuse any grammatical, word or spelling errors. Time with Patient: Less than 30
[2024-09-28 13:52] LABS: C. trachomatis,PCR Negative (Negative)
== END 2024-09-27 15:12 | disposition home or self-care (01) | DRG 463 ==
LOC: EC 19:44 → 6NMEDSUR 22:00 → INTOOBSV 22:01 → OBSVTOIN 22:01 → 4SSUR 22:09
PROVIDERS: ADMIT Internal Medicine; ATTEND Internal Medicine
DX: N39.0 Urinary tract infection, site not specified (principal); N83.201 Unspecified ovarian cyst, right side; N32.81 Overactive bladder; M79.7 Fibromyalgia; K80.20 Calculus of gallbladder without cholecystitis without obstruction; K76.0 Fatty (change of) liver, not elsewhere classified; B96.20 Unspecified Escherichia coli [E. coli] as the cause of diseases classified elsewhere; E11.40 Type 2 diabetes mellitus with diabetic neuropathy, unspecified; E78.5 Hyperlipidemia, unspecified; F17.210 Nicotine dependence, cigarettes, uncomplicated; F31.9 Bipolar disorder, unspecified; F41.9 Anxiety disorder, unspecified; Z68.43 Body mass index [BMI] 50.0-59.9, adult; F60.3 Borderline personality disorder; G89.29 Other chronic pain; E66.9 Obesity, unspecified; M54.9 Dorsalgia, unspecified; J44.9 Chronic obstructive pulmonary disease, unspecified; R65.10 Systemic inflammatory response syndrome (SIRS) of non-infectious origin without acute organ dysfunction; Z79.1 Long term (current) use of non-steroidal anti-inflammatories (NSAID); Z87.01 Personal history of pneumonia (recurrent); Z79.51 Long term (current) use of inhaled steroids; Z79.84 Long term (current) use of oral hypoglycemic drugs; Z79.899 Other long term (current) drug therapy; Z87.440 Personal history of urinary (tract) infections; Z98.51 Tubal ligation status; Z88.1 Allergy status to other antibiotic agents; Z88.0 Allergy status to penicillin; Z88.8 Allergy status to other drugs, medicaments and biological substances
CPT/HCPCS: 36415; 71046; 74177; 76830; 76856; 80048; 80053; 81001; 83036; 83605; 83690; 83735; 84145; 84484; 85025; 85027; 85652; 86140; 87040; 87077; 87086; 87186; 87491; 87591; 93005; 94640; 96374; 99285

== ENCOUNTER → 2024-09-30 | Outpatient (CLI) | payer OTHER ==
--- NOTE | 2024-09-30 11:46 | FL ---
EXAMINATION TYPE: FL barium swallow DATE OF EXAM: 09/30/2024 11:38 AM COMPARISON: None CLINICAL INDICATION:Female, 53 years old with history of E04.2 THYROID NODULES; PHH, TECHNIQUE: The procedure was explained and patient history elicited. All patient questions were ans wered prior to start of procedure. Multiple spot fluoroscopic images of the esophagus were obtained a fter the oral ingestion of effervescent crystals and liquid barium as the contrast agent. Fluoroscopic time:30 sec Fluoroscopic images:0 Radiographs taken: 155 DAP: Not Reported [id number] FINDINGS: The esophagus demonstrates normal primary and secondary peristalsis. Tertiary contractions are seen w ith delayed emptying of the esophageal contents. Small hiatal hernia present. The esophageal mucosa i s smooth without evidence of focal stricture, ulceration, or abnormal outpouching. No gastroesophage al reflux disease was identified IMPRESSION: 1. Esophageal dysmotility. 2. Small hiatal hernia. [facility], , 09/30/2024 11:44 AM
--- NOTE | 2024-09-30 12:46 | US ---
EXAMINATION TYPE: US thyroid st tissue head/neck DATE OF EXAM: 09/30/2024 COMPARISON: NONE CLINICAL INDICATION: Female, 53 years old with history of THYROID NODULE E042; TECHNIQUE: Grayscale and color Doppler imaging of the thyroid gland. FINDINGS: GLAND SIZE: Right Lobe: 7.4 x 4.6 x 4.8 cm Overall Parenchyma: ? Unable to assess due to nodule Left Lobe: 5.4 x 2.6 x 2.7 cm Overall Parenchyma: homogeneous Isthmus Thickness: cm NODULES RIGHT: # of nodules measured on right: 1 1. 6.2 X 3.7 x 3.6 cm, mid mid, solid or almost completely solid, hyperechoic nodule, which is tall er than wide, with smooth margins, without echogenic foci. Prior size: 5.5 x 3.7 x 5.7 cm TIRADS Score: 4 TIRADS Category 4: Composition: Solid or almost completely solid (2 points). Echogenicity: Hypoechoic (2 points). Shape: Wider than tall (0 points). Margin: Smooth (0 points). Echogenic foci: None or large comet-tail artifacts (0 points) Recommendation: If >1.5cm: FNA; If >1cm: Follow up at 1,2, 3,5 years LEFT: # of nodules measured on left: 2 1. 1.8 X 1.4 x 2.0 cm, upper mid, Prior size: 1.7 x 1.5 x 1.8 cm TIRADS Score: 4 TIRADS Category 4: Composition: Solid or almost completely solid (2 points). Echogenicity: Hypoechoic (2 points). Shape: Wider than tall (0 points). Margin: Smooth (0 points). Echogenic foci: None or large comet-tail artifacts (0 points) Recommendation: If >1.5cm: FNA; If >1cm: Follow up at 1,2, 3,5 years 2. 1.5 X 0.9 x 1.5 cm, lower medial, Prior size: 1.4 x 1.0 x 1.5 cm TIRADS Score: 4 TIRADS Category 4: Composition: Solid or almost completely solid (2 points). Echogenicity: Hypoechoic (2 points). Shape: Wider than tall (0 points). Margin: Smooth (0 points). Echogenic foci: None or large comet-tail artifacts (0 points) Recommendation: If >1.5cm: FNA; If >1cm: Follow up at 1,2, 3,5 years ISTHMUS: # of nodules measured in the isthmus: 1 1. 4.2 X 3.7 x 3.4 cm solid or almost completely solid, Prior size; ? new nodule vs extension o f right thyroid nodule TIRADS Score: 3 TIRADS Category 3: Composition: Solid or almost completely solid (2 points). Echogenicity: Hyperechoic or isoechoic (1 point). Shape: Wider than tall (0 points). Margin: Smooth (0 points). Echogenic foci: None or large comet-tail artifacts (0 points) Recommendation: If >2.5cm: FNA; If >1.5cm: Follow up at 1,3,5 years Bilateral neck scanned, no evidence of lymphadenopathy. Difficult exam - patient gagging due to pressure on neck throughout exam IMPRESSION: Bilateral thyroid nodules recommendations as described above. [facility], , 09/30/2024 12:43 PM
--- NOTE | 2024-10-01 14:55 | MM ---
Reason for Exam: Screening (asymptomatic). Last screening mammogram was performed 12 month(s) ago. Patient History: Menarche at age 12. First Full-Term at age 22. Postmenopausal. Risk Values: Beverly 5 year model risk: 1.0%. NCI Lifetime model risk: 7.7%. Prior Study Comparison: 07/16/2016 Bilateral Screening Mammogram, [facility]. 07/02/2018 Bilateral Screening Mammogram, [facility]. 09/23/2023 Bilateral MG 3D screening mammo w/cad, [facility]. Tissue Density: There are scattered areas of fibroglandular density. Findings: Analyzed By CAD. Right breast: There is no suspicious group of microcalcifications or new suspicious mass. Left breast: There is no suspicious group of microcalcifications or new suspicious mass. Overall Assessment: Negative, BI-RAD 1 Management: Screening Mammogram of both breasts in [address] [facility] will attempt to contact patient to return for supplemental views and ultrasound if indicated. Patient should continue monthly self-breast exams. A clinical breast exam by your physician is recommended on an annual basis. This exam should not preclude additional follow-up of suspicious palpable abnormalities. Note on Beverly scores and lifetime risk: 1. A Beverly score greater than 3% is considered moderate risk. If this is the case, consider specialist referral to assess eligibility for a risk reducing agent. 2. If overall lifetime risk for the development of breast cancer is 20% or higher, the patient may qualify for future screening with alternating mammogram and breast MRI. [facility], , 10/01/2024 2:52 PM. Electronically signed and approved by: Axel Kinsey DO
== END | disposition home or self-care (01) ==
LOC: RADFLMAIN 10:27
PROVIDERS: ATTEND Family Medicine
DX: Z12.31 Encounter for screening mammogram for malignant neoplasm of breast (principal); E04.2 Nontoxic multinodular goiter; K22.4 Dyskinesia of esophagus; K44.9 Diaphragmatic hernia without obstruction or gangrene; Z78.0 Asymptomatic menopausal state; R92.323 Mammographic fibroglandular density, bilateral breasts
CPT/HCPCS: 74220; 76536; 77067

== ENCOUNTER → 2025-03-22 | Outpatient (CLI) | payer OTHER ==
[2025-03-22 16:00] LABS: HCT 45.5 % (37.2-46.3); HGB 14.8 g/dL (12.0-15.0); MCH 30.1 pg (27.0-32.0); MCHC 32.5 g/dL (32.0-37.0); MCV 92.5 FL (80.0-97.0); Mean Platelet Volume 11.9 FL (9.5-12.2); NRBC Per 100 WBC 0 X 10*3/uL (0.00-0.01); Platelet Count 187 X 10*3/uL (140-440); RBC 4.92 X 10*6/uL (4.10-5.20); RDW 13.2 % (11.5-14.5); WBC 11.37 X 10*3/uL (4.50-10.00)
== END | disposition home or self-care (01) ==
LOC: LABPAT 11:22
PROVIDERS: ATTEND Anesthesiology
DX: Z01.812 Encounter for preprocedural laboratory examination (principal); R22.30 Localized swelling, mass and lump, unspecified upper limb
CPT/HCPCS: 85027

== ENCOUNTER 2025-03-25 10:09 | Day surgery (SDC) | payer OTHER ==
[2025-03-21 16:11] VITALS: BMI 47.9
[~2025-03-25 10:09] MED LIST changes: +ACETAMINOPHEN TAB 500 MG TAB PO PRN; -GLYCOPYRROLATE 0.2 MG/ML 2 ML VIAL ONE; +HYDROmorphone 0.5 MG/0.5 ML SYRINGE IVP PRN; -KETAMINE 10 MG/ML 20 ML VIAL ONE; -LACTATED RINGERS 1,000 ML IV SCH; -LIDOCAINE 1% (10MG/ML) FOR IV START INTRADERMA ONE; +LIDOCAINE 1% (10MG/ML) FOR IV START INTRADERMA PRN; +MIDAZOLAM 2 MG/2 ML VIAL IV PRN; -PROPOFOL 10 MG/ML 20 ML VIAL IV ONE; +Pre Op ABX Message 1 EACH MISC MISCELLANE ONE; +fentaNYL (PF) 50 MCG/ML 2 ML AMP IVP PRN
[2025-03-25 10:49] VITALS: TEMP 96.6
[2025-03-25] MEDS: IV FLUID CONTINUATION 1,000 ML IV ONE (10:52)
[2025-03-25] MEDS ORDERED: MIDAZOLAM 2 MG/2 ML VIAL ONE (11:12)
[2025-03-25] MEDS ORDERED: PROPOFOL 10 MG/ML 20 ML VIAL IV ONE (11:12)
[2025-03-25] MEDS ORDERED: KETAMINE HCL IN 0.9 % NACL 50 MG/5 ML SYRINGE ONE (11:12)
[2025-03-25] MEDS ORDERED: fentaNYL (PF) 50 MCG/ML 2 ML AMP ONE (11:12)
[2025-03-25] MEDS: ONDANSETRON 4 MG/2 ML VIAL IVP ONE (11:13)
[2025-03-25] MEDS: LACTATED RINGERS 1,000 ML IV SCH (11:13)
[2025-03-25] MEDS: DEXAMETHASONE SOD PHOSPHATE 4 MG/ML 1 ML VIAL IV ONE (11:13)
[2025-03-25] MEDS: HEPARIN SODIUM,PORCINE 5,000 UNIT/ML 1 ML VIAL SQ PRN (11:13)
[2025-03-25] MEDS: SODIUM CHLORIDE 0.9% 50 ML with ceFAZolin 2,000 MG IV ONE (11:14)
[2025-03-25 11:15] LABS: Glucose,Whole Blood 112 mg/dL (70-110)
[2025-03-25] MEDS: BUPIVACAINE (PF) 0.25% 30 ML VIAL SQ ONE ×2 (11:34)
[2025-03-25] MEDS ORDERED: NALOXONE 0.4 MG/ML 1 ML VIAL IV PRN (12:12)
[2025-03-25] MEDS ORDERED: HYDROmorphone 1 MG/ML 1 ML SYRINGE IVP PRN (12:12)
--- NOTE | 2025-03-25 12:16 | P.OP ---
Date of Procedure: 03/25/25 Procedure(s) Performed: PREOPERATIVE DIAGNOSIS: Left elbow mass POSTOPERATIVE DIAGNOSIS: Same PROCEDURE: Excision left elbow mass with intermediate closure SURGEON: Hank EBL: 10 cc ANESTHESIA: Sedation and local COMPLICATIONS: None OPERATIVE PROCEDURE: Patient placed supine. Left elbow prepped and draped sterilely. Horizontal incision made overlying the palpable mass. The patient's mass was very superficial to the skin. It had a somewhat necrotic appearance. There was some whitish fluid seen in a portion of the margin of this mass. This was able to be fully excised. Mass measured 5.5 x 2.5 cm. This was sent to pathology. Area irrigated with saline. Subcutaneous layers closed using 3-0 Vicryl sutures. Skin closed using a running 4-0 nylon stitch. Sterile dressings applied. DISPOSITION: Stable to recovery room
[2025-03-25 12:26] VITALS: BP 115/75; PULSE 70; RESP 16
== END 2025-03-25 12:54 | disposition home or self-care (01) ==
LOC: OR 10:09
PROVIDERS: ATTEND Surgery
DX: R22.32 Localized swelling, mass and lump, left upper limb (principal)
CPT/HCPCS: 11406; 12032; J2250; J1644; J1100; J2405; J0690; J3010; J2704; J0665; 88305

== ENCOUNTER 2025-04-26 09:15 | Emergency (ER) | payer OTHER ==
[2025-04-26 09:19] VITALS: RESP 18
[2025-04-26] MEDS: MORPHINE SULFATE 2 MG/ML SYRINGE IVP STA (10:19)
[2025-04-26 10:43] LABS: Basophils # (A) 0.07 10*3/uL (0.00-0.10); Basophils % (A) 0.5 %; Eosinophils # (A) 0.12 10*3/uL (0.04-0.35); Eosinophils % (A) 0.9 %; HCT 40.8 % (37.2-46.3); HGB 14.1 g/dL (12.0-15.0); Lymphocytes # (A) 4.61 10*3/uL (0.90-5.00); Lymphocytes % (A) 35.7 %; MCH 30.9 pg (27.0-32.0); MCHC 34.6 g/dL (32.0-37.0); MCV 89.5 fL (80.0-97.0); Mean Platelet Volume 11.4 fL (9.5-12.2); Monocytes # (A) 0.84 10*3/uL (0.20-1.00); Monocytes % (A) 6.5 %; Neutrophils # (A) 7.22 10*3/uL (1.80-7.70); Neutrophils % (A) 56.1 %; Platelet Count 162 10*3/uL (140-440); RBC 4.56 10*6/uL (4.10-5.20); RDW 12.7 % (11.5-14.5)
--- NOTE | 2025-04-26 10:44 | US ---
EXAMINATION TYPE: US extremity nonvasc mass LT DATE OF EXAM: 04/26/2025 COMPARISON: NONE CLINICAL INDICATION: Female, 54 years old with history of post op edema/mass; patient had a tumor rem singh end of March on left posterior forearm, just below elbow. Pt states it was healing and then had oo zing with redness and a fever. TECHNIQUE: Area of concern scanned FINDINGS: Complex heterogeneous area seen with hypervascularity measuring 4.9 x 3.3 x 1.3cm. There i s edematous tissue surrounding. Differential diagnosis could include abscess and hematoma. IMPRESSION: 1. Complex collection anterior concern can be compatible with abscess. Consider hematoma. [facility], , 04/26/2025 10:42 AM
[2025-04-26 10:58] LABS: ALT 24 U/L (4-34); AST 27 U/L (14-36); African American GFR (CKD) >90 (>60 ml/min/1.73 sqM); Albumin 4.3 g/dL (3.5-5.0); Alkaline Phosphatase 86 U/L (38-126); Anion Gap 10 mmol/L; Blood Urea Nitrogen 8 mg/dL (7-17); Calcium 10.6 mg/dL (8.4-10.2); Carbon Dioxide 27 mmol/L (22-30); Chloride 103 mmol/L (98-107); Glucose 100 mg/dL (74-99); Non-African American GFR(CKD) >90 (>60 ml/min/1.73 sqM); Potassium 3.7 mmol/L (3.5-5.1); Sodium 140 mmol/L (137-145); Total Bilirubin 0.7 mg/dL (0.2-1.3)
--- NOTE | 2025-04-26 11:02 | XR ---
EXAMINATION TYPE: XR elbow limited LT DATE OF EXAM: 04/26/2025 10:54 AM COMPARISON: None. CLINICAL INDICATION: Female, 54 years old with history of post op edema/mass, pain TECHNIQUE: 3 view(s) obtained. FINDINGS: Radius aligns normally with the humerus. No acute fracture or dislocation evident. Joint spaces appea r preserved. Small amount of calcification may be within the proximal dorsal left forearm. Soft tissue changes are at the elbow can be postsurgical. IMPRESSION: 1. No acute osseous abnormality. 2. Some soft tissue swelling over the dorsal proximal elbow [facility], , 04/26/2025 11:00 AM
[2025-04-26] MEDS: LIDOCAINE 1% INJ 10MG/ML (20 ML MDV) SQ ONE (12:01)
[2025-04-26 13:12] VITALS: BP 114/69; PULSE 76; TEMP 98.1
--- NOTE | 2025-04-26 13:36 | ED ---
General Adult HPI - General Chief complaint: Extremity Problem,Nontraumatic Stated complaint: L arm pain Time Seen by Provider: 04/26/25 09:55 Source: patient, RN notes reviewed, old records reviewed Mode of arrival: ambulatory Limitations: no limitations - History of Present Illness Initial comments: Patient is a 54-year-old female who presents emergency department complaining of left elbow pain. Last month had a lipoma removal by Dr. Borges. Presents for further evaluation. States it has become more swollen over the last few days. More tender to touch. Warm. No obvious discharge. Does have history of diabetes. Denies any other acute complaints at this time. Denies any fevers or chills. Presents for further evaluation. - Related Data Home Medications Medication Instructions Recorded Confirmed FLUoxetine HCL [PROzac] 20 mg PO HS 03/08/15 03/25/25 metFORMIN HCL [Glucophage] 1,000 mg PO BID 08/11/18 03/25/25 Gabapentin 600 mg PO TID 04/18/21 03/25/25 HYDROcodone/APAP 7.5-325MG [Dawson 1 tab PO TID 08/14/21 03/25/25 7.5-325] Semaglutide [Ozempic] 1 mg SQ TU 08/14/21 03/25/25 Albuterol Nebulized [Ventolin 2.5 mg INHALATION RT-QID PRN 09/23/24 03/25/25 Nebulized] Fluticasone/Umeclidin/Vilanter 1 puff INHALATION RT-DAILY 09/23/24 03/25/25 [Trelegy Ellipta 100-62.5-25] Meloxicam [Mobic] 15 mg PO DAILY PRN 09/23/24 03/25/25 Oxybutynin Chloride [oxyBUTYnin 15 mg PO DAILY 09/23/24 03/25/25 chloride ER] Rosuvastatin [Crestor] 10 mg PO HS 09/23/24 03/25/25 Cholecalciferol (Vitamin D3) 250 mcg PO DAILY 03/21/25 03/25/25 [Vitamin D3 (125 MCG = 5,000 IU)] Previous Rx's Medication Instructions Recorded Cephalexin [Keflex] 500 mg PO Q12HR 10 Days #20 cap 04/26/25 Sulfamethox-Tmp 800-160Mg [Bactrim 1 tab PO Q12HR 10 Days #20 tab 04/26/25 DS 800-160 mg] Allergies Allergy/AdvReac Type Severity Reaction Status Date / Time erythromycin base Allergy Severe Rash/Hives/ Verified 03/25/25 10:55 [Erythromycin Base] SOB amoxicillin [Amoxicillin] Allergy Rash/Hives Verified 03/25/25 10:55 bupropion HCl Allergy Swelling Verified 03/25/25 10:55 [From Wellbutrin] ONE A DAY MULTIVITAMIN Allergy Itching/HIV Uncoded 03/25/25 10:55 ES Review of Systems ROS Statement: Those systems with pertinent positive or pertinent negative responses have been documented in the HPI. Review of Systems: CONST: Denies fever EYES: Denies blurry vision ENT: Denies nasal congestion C/V: Denies Chest pain RESP: Denies shortness of breath GI: Denies abdominal pain : Denies dysuria SKIN: Endorses swelling at the incision site on the left elbow. MSK: Endorses left elbow pain NEURO: Denies headache ROS Other: All systems not noted in ROS Statement are negative. Past Medical History Past Medical History: COPD, Diabetes Mellitus, Fibromyalgia, Hyperlipidemia, Osteoarthritis (OA), Pneumonia, Sleep Apnea/CPAP/BIPAP Additional Past Medical History / Comment(s): "Degenerative Disc Disease, gonorrhea many years ago. hx heart murmer, blood in stool-NONE RECENT, dry skin patches, uses cane or walker due to athritis in mult joints,uses -NOT CURRENTLY USING CPAP History of Any Multi-Drug Resistant Organisms: None Reported Past Surgical History: Section, Orthopedic Surgery, Tonsillectomy, Tubal Ligation Additional Past Surgical History / Comment(s): tumor biopsy from neck (thyroid area), ganglion cyst removed from left foot, exp. laparoscopy, COLONOSCOPY Past Anesthesia/Blood Transfusion Reactions: Previous Problems w/ Anesthesia Additional Past Anesthesia/Blood Transfusion Reaction / Comment(s): States "could not catch her breath when she awoke" from general anesthesia, states was in a panic Past Psychological History: Anxiety, Bipolar, Depression Smoking Status: Current every day smoker Past Alcohol Use History: None Reported Past Drug Use History: None Reported - Past Family History Mother Family Medical History: Cancer Additional Family Medical History / Comment(s): Lung cancer Brother(s) Family Medical History: Deep Vein Thrombosis (DVT) General Exam - General Exam Comments Initial Comments: General: Appears in mild distress secondary to elbow pain HEAD: Normal with no signs of head trauma. EYES: EOMI ENT: Hearing grossly intact RESPIRATORY: Clear breath sounds bilaterally. No wheezes, rales, or rhonchi. C/V: Regular rate and rhythm. S1 and S2 auscultated, no edema, peripheral pulses 2+ and intact throughout ABD: Nondistended EXT: Normal range of motion of the left arm and left elbow. No obvious deformity. SKIN: Fluctuant area located over the proximal left forearm just distal to the elbow on the posterior aspect at the site of the surgical incision. No obvious discharge at this time. Warm. Erythematous. Concern for infection. NEURO: Alert and orient x 4. Limitations: no limitations Course Vital Signs 04/26/25 04/26/25 04/26/25 09:17 10:20 13:10 Temperature 98.5 F 98.1 F Pulse Rate 90 78 76 Respiratory 18 18 18 Rate Blood Pressure 132/81 125/65 114/69 O2 Sat by Pulse 97 98 98 Oximetry Medical Decision Making - Medical Decision Making Was pt. sent in by a medical professional or institution (, [place], [facility], urgent care, hospital, or [facility]...) When possible be specific @ -No Did you speak to anyone other than the patient for history (EMS, parent, family, police, friend...)? What history was obtained from this source @ -No Did you review nursing and triage notes (agree or disagree)? Why? @ -I reviewed and agree with nursing and triage notes Were old charts reviewed (outside hosp., previous admission, EMS record, old EKG, old radiological studies, urgent care reports/EKG's, [facility] records)? Report findings @ -No old charts were reviewed Differential Diagnosis (chest pain, altered mental status, abdominal pain women, abdominal pain men, vaginal bleeding, weakness, fever, dyspnea, syncope, headache, dizziness, GI bleed, back pain, seizure, CVA, palpatations, mental health, musculoskeletal)? @ -Postop infection, abscess, cellulitis. This list is not all-inclusive. EKG interpreted by me (3pts min.). @ -None done X-rays interpreted by me (1pt min.). @ -Elbow x-ray negative for any obvious acute injury. CT interpreted by me (1pt min.). @ -None done U/S interpreted by me (1pt. min.). @ -Ultrasound shows findings concerning for infection and abscess. What testing was considered but not performed or refused? (CT, X-rays, U/S, labs)? Why? @ -None What meds were considered but not given or refused? Why? @ -None Did you discuss the management of the patient with other professionals (professionals i.e. [facility], [place], [facility], lab, RT, psych nurse, nephrology social worker, olive brine tester, teacher, credit products officer, mattress spring encaser)? Give summary @ -No Was smoking cessation discussed for >3mins.? @ -No Was critical care preformed (if so, how long)? @ -No Were there social determinants of health that impacted care today? How? (Homelessness, low income, unemployed, alcoholism, drug addiction, transportation, low edu. Level, literacy, decrease access to med. care, prison, rehab)? @ -No Was there de-escalation of care discussed even if they declined (Discuss DNR or withdrawal of care, Hospice)? DNR status @ -No What co-morbidities impacted this encounter? (DM, HTN, Smoking, COPD, CAD, Cancer, CVA, ARF, Chemo, Hep., AIDS, mental health diagnosis, sleep apnea, morbid obesity)? @ -None Was patient admitted / discharged? Hospital course, mention meds given and route, prescriptions, significant lab abnormalities, going to OR and other pertinent info. @ -Patient presents emergency department for what appears to be cellulitis or abscess of the postop incision site from 1 month ago. She would like to go home with possible. Will obtain basic labs, as well as imaging. Patient was agreement this plan. She is given a small dose of IV morphine Labs remarkable for mild leukocytosis of 12.9. Remainder the workup unremarkable except for suspected abscess seen on imaging. I spoke with her surgeon, Dr. Mckinney who arrange for follow-up appointment with him on , 04/28/2025 at 10:50 AM. She can be discharged home with antibiotics after I&D. Midlevel provider assisted with I&D. Patient tolerated procedure well. She will be discharged home on Keflex and Bactrim. She was in agreement with the plan for follow-up. I will provide the patient with a prescription for Keflex and Bactrim. I instructed the patient to follow up with their PCP in the next 1-3 days. I provided contact information for follow up with Dr. Mckinney. I explained that the patient should return to the emergency department if they experience any worsening symptoms. Strict return precautions were discussed with the patient. The patient expressed understanding of these instructions. I answered all questions that the patient had. The patient was discharged home in good condition with their prescriptions and follow up information. Undiagnosed new problem with uncertain prognosis? @ -No Drug Therapy requiring intensive monitoring for toxicity (Heparin, Nitro, Insulin, Cardizem)? @ -No Were any procedures done? @ -No Diagnosis/symptom? @ -Postop infection, abscess, cellulitis Acute, or Chronic, or Acute on Chronic? @ -Acute Uncomplicated (without systemic symptoms) or Complicated (systemic symptoms)? @ -uncomplicated Side effects of treatment? @ -No Exacerbation, Progression, or Severe Exacerbation? @ -No Poses a threat to life or bodily function? How? (Chest pain, [place], ND, pneumonia, PE, COPD, DKA, ARF, appy, cholecystitis, CVA, Diverticulitis, Homicidal, Suicidal, threat to staff... and all critical care pts) @ -Unlikely at this time - Lab Data Result diagrams: 04/26/25 10:16 04/26/25 10:16 Lab Results 04/26/25 04/26/25 Range/Units 10:16 10:16 WBC 12.90 H (4.50-10.00) 10*3/uL RBC 4.56 (4.10-5.20) 10*6/uL Hgb 14.1 (12.0-15.0) g/dL Hct 40.8 (37.2-46.3) % MCV 89.5 (80.0-97.0) fL MCH 30.9 (27.0-32.0) pg MCHC 34.6 (32.0-37.0) g/dL Plt Count 162 (140-440) 10*3/uL MPV 11.4 (9.5-12.2) fL Immature Gran % (Auto) 0.3 % Neutrophils % 56.1 % Lymphocytes % 35.7 % Monocytes % 6.5 % Eosinophils % 0.9 % Basophils % 0.5 % Immature Gran # 0.04 (0.00-0.04) 10*3/uL Neutrophils # 7.22 (1.80-7.70) 10*3/uL Lymphocytes # 4.61 (0.90-5.00) 10*3/uL Monocytes # 0.84 (0.20-1.00) 10*3/uL Eosinophils # 0.12 (0.04-0.35) 10*3/uL Basophils # 0.07 (0.00-0.10) 10*3/uL Sodium 140 (137-145) mmol/L Potassium 3.7 (3.5-5.1) mmol/L Chloride 103 (98-107) mmol/L Carbon Dioxide 27 (22-30) mmol/L Anion Gap 10 mmol/L BUN 8 (7-17) mg/dL Creatinine 0.39 L (0.52-1.04) mg/dL Est GFR (CKD-EPI)AfAm >90 (>60 ml/min/1.73 sqM) Est GFR (CKD-EPI)NonAf >90 (>60 ml/min/1.73 sqM) Glucose 100 H (74-99) mg/dL Calcium 10.6 H (8.4-10.2) mg/dL Total Bilirubin 0.7 (0.2-1.3) mg/dL AST 27 (14-36) U/L ALT 24 (4-34) U/L Alkaline Phosphatase 86 (38-126) U/L Total Protein 7.0 (6.3-8.2) g/dL Albumin 4.3 (3.5-5.0) g/dL Disposition Clinical Impression: Post op infection, Abscess, Cellulitis Disposition: HOME SELF-CARE Condition: Good Instructions (If sedation given, give patient instructions): Cellulitis (ED), Abscess Incision and Drainage (ED), Abscess (ED) Additional Instructions: We have an appointment made for you with Dr. Mckinney on April at 10:50 AM. Please call their office to confirm appointment. Return to the ER for any worsening symptoms. Prescriptions: Sulfamethox-Tmp 800-160Mg [Bactrim DS 800-160 mg] 1 tab PO Q12HR 10 Days #20 tab Cephalexin [Keflex] 500 mg PO Q12HR 10 Days #20 cap Is patient prescribed a controlled substance at d/c from ED?: No Referrals: Yulia Landon MD [Primary Care Provider] - 1-2 days Mark Mckinney MD [Medical Doctor] - 1-2 days Time of Disposition: 13:35
[2025-04-26] MEDS: CEPHALEXIN 500 MG CAP PO STA (13:40)
[2025-04-26] MEDS: HYDROcodone/APAP 10-325MG 1 EACH TAB PO ONE (13:40)
[2025-04-26] MEDS: SULFAMETHOX-TMP 800-160MG 1 EACH TAB PO STA (13:40)
== END 2025-04-26 13:54 | disposition home or self-care (01) ==
LOC: EC 09:15
DX: T81.40XA Infection following a procedure, unspecified, initial encounter (principal); L03.114 Cellulitis of left upper limb; L02.414 Cutaneous abscess of left upper limb; F17.200 Nicotine dependence, unspecified, uncomplicated; Z88.0 Allergy status to penicillin; Z88.1 Allergy status to other antibiotic agents; Z88.6 Allergy status to analgesic agent; Z88.8 Allergy status to other drugs, medicaments and biological substances
CPT/HCPCS: 36415; 80053; 85025; 73070; 76882; 99284; 96374; J2003; J2270